=== PATIENT | female | born 1955 | race Caucasian/White ===

== ENCOUNTER → 2016-06-21 | Outpatient (CLI) | payer OTHER ==
[~2016-06-21] MED LIST: ACET-1138 PO; ASPEC81 PO; ATOR-22 PO; CLB200 PO; CLX20 PO; MISCCAP80 PO; MULT-506 PO; ONDA8TAB6 PO; RXC5 PO; SNK PO
[2016-06-21 13:22] LABS: BLOOD UREA NITROGEN 24 mg/dl (7-18); BUN/CREATININE RATIO 28.1 (10-20); CALCIUM 9.5 mg/dl (8.5-10.1); CARBON DIOXIDE 28 mmol/L (21-32); CHLORIDE 106 mmol/L (98-107); CREATININE 0.87 mg/dl (0.60-1.20); GLUCOSE 94 mg/dl (70-99); HDL CHOLESTEROL 55 mg/dl; POTASSIUM 4.4 mmol/L (3.5-5.1); SODIUM 142 mmol/L (136-145)
[2016-06-21 13:25] LABS: ALB/GLOB RATIO 1.2 (0.9-2); ALKALINE PHOSPHATASE 85 U/L (45-117); ALT/SGPT 26 U/L (12-78); AST/SGOT 17 U/L (15-37); CHOLESTEROL 182 mg/dl (0-200); CHOLESTEROL/HDL RATIO 3.3; LDL CHOLESTEROL CALCULATED 112 mg/dl; TRIGLYCERIDES 77 mg/dl (0-150); VERY LOW DENSITY LIPOPROT CALC 15 mg/dl
== END | disposition home or self-care (01) ==
LOC: C.LABPVFM 10:27
PROVIDERS: ATTEND Nurse Practitioner
DX: E78.5 Hyperlipidemia, unspecified (principal)

== ENCOUNTER → 2017-03-28 | Outpatient (CLI) | payer OTHER ==
[~2017-03-28] MED LIST changes: -ONDA8TAB6 PO
[2017-03-28 13:11] LABS: URINE EPITHELIAL CELL AUTO 0-5 /lpf (0-5); ZZInitiateTest Complete
[2017-03-28 13:22] LABS: MANUAL MICROSCOPIC REQUIRED? NO; REVIEW REQ? NO
== END | disposition home or self-care (01) ==
LOC: C.LABPVFM 11:39
PROVIDERS: ATTEND Nurse Practitioner Family
DX: R39.9 Unspecified symptoms and signs involving the genitourinary system (principal)

== ENCOUNTER → 2017-05-30 | Outpatient (CLI) | payer OTHER ==
[2017-05-30 14:07] LABS: BLOOD UREA NITROGEN 23 mg/dl (7-18); CALCIUM 9.5 mg/dl (8.5-10.1); CARBON DIOXIDE 26 mmol/L (21-32); CHOLESTEROL 124 mg/dl (0-200); CREATININE 0.82 mg/dl (0.60-1.20); GLUCOSE 96 mg/dl (70-99); POTASSIUM 4.4 mmol/L (3.5-5.1); SODIUM 139 mmol/L (136-145)
[2017-05-30 14:12] LABS: LDL CHOLESTEROL CALCULATED 72 mg/dl
== END | disposition home or self-care (01) ==
LOC: C.LABPVFM 08:27
PROVIDERS: ATTEND Family Medicine
DX: E78.5 Hyperlipidemia, unspecified (principal); F32.9 Major depressive disorder, single episode, unspecified

== ENCOUNTER → 2017-07-19 | Outpatient (CLI) | payer OTHER ==
--- NOTE | 2017-07-19 13:49 | DIAGNOSTIC IMAGING REPORT ---
R KNEE 1 OR 2 VIEWS ROUTINE HISTORY: 61 years-old Female KNEE PAIN, R acute right knee pain without known injury COMPARISON: None available TECHNIQUE: 2 views of the right knee FINDINGS: Bones appear mildly demineralized. Tricompartmental osteoarthritis appears moderate, most pronounced within the patellofemoral joint. Small knee joint effusion. No acute fracture or dislocation. IMPRESSION: Small joint effusion without acute fracture or dislocation. The above report was generated using voice recognition software. It may contain grammatical, syntax or spelling errors. Electronically signed by: Dave Rivera M.D. 07/19/2017 1:48 PM Dictated Date/Time: 07/19/2017 1:43 PM
== END | disposition home or self-care (01) ==
LOC: C.RADPV 13:33
PROVIDERS: ATTEND Family Medicine
DX: M25.561 Pain in right knee (principal)

== ENCOUNTER 2018-04-28 04:53 | Inpatient (IN) ==
--- NOTE | 2018-04-04 10:17 | PAT Medication Instructions ---
Medication Instructions Date of Service April 04, 2018 Home Medications atorvastatin 20 mg PO PM citalopram [Celexa] 10 mg PO QAM citalopram [Celexa] 20 mg PO HS ibuprofen 400 mg PO QID NEEDED multivitamin 1 tab PO HS cannabidiol (CBD) extract 1 drp PO PM ASK your prescriber and surgeon ibuprofen 400 mg PO QID NEEDED Take morning of surgery With a small sip of water, OTHERWISE NOTHING TO EAT OR DRINK AFTER MIDNIGHT: citalopram [Celexa] 10 mg PO QAM Take evening before surgery atorvastatin 20 mg PO PM citalopram [Celexa] 20 mg PO HS multivitamin 1 tab PO HS cannabidiol (CBD) extract 1 drp PO PM Other Notes If you have any questions please call us at [phone] or [phone] or [phone] or [phone]
--- NOTE | 2018-04-04 12:19 | Anesthesiology Consultation ---
Date of Service April 04, 2018 Assessment & Plan (1) Encounter for pre-operative examination: Chart Review Chart Review: Acceptable Risk for Surgery and Patient seen in Pre Admission Testing Consults Requested none Teaching & Discussion Pre-Anesthesia Teaching/Discussion Notes: Instructed NPO after midnight before surgery, except medications with 15 cc of water. Medication instructions provided according to the PAT guidelines. History Surgery Operation Date: 04/28/18 07:00 Proposed Procedures p Right Anterior Total Hip Replacement - Tom Calero DO Height/Weight Height: 5 ft 4 in Weight: 79.2 kg Allergies Allergy/AdvReac Type Severity Reaction Status Date / Time No Known Allergies Allergy Mild Verified 03/30/18 10:31 Medications Home Medications Medication Instructions Recorded Confirmed Last Taken atorvastatin 20 mg PO PM 03/30/18 03/30/18 Unknown citalopram [Celexa] 10 mg PO QAM 03/30/18 03/30/18 Unknown citalopram [Celexa] 20 mg PO HS 03/30/18 03/30/18 Unknown ibuprofen 400 mg PO QID PRN 03/30/18 03/30/18 Unknown multivitamin 1 tab PO HS 03/30/18 03/30/18 Unknown cannabidiol (CBD) extract 1 drp PO PM 04/04/18 04/04/18 Unknown Past Medical History Medical History Anxiety History of back pain Hyperlipidemia Osteoarthritis Past Family History Family History Father Family history of diabetes mellitus Family/Other Family history of diabetes mellitus Past Surgical History Surgical History History of cholecystectomy History of tonsillectomy History of total hip arthroplasty LEFT Past Anesthesia History No Hx of Anesthesia Complications and No Family Hx of Anesthesia Complications History of PONV No Motion Sickness Screening History of Motion Sickness: No Social History Smoking Status: Never smoker Do You Dip or Chew Tobacco: No Hx Alcohol Use: Yes Alcohol type: beer, wine and hard liquor alcohol intake frequency: a few times a week Hx Substance Use: No Exercise / Class Metabolic Activity II 4-5 Yardwork/Stairs/Walk up hill (Yoga 3x week, Pilates 2x week. Able to easily climb FOS. Denies CP or SOB. ) Review of Systems Patient denies chest pain, shortness of breath, dyspnea on exertion, reflux, cough, wheezing, palpitations. +joint pain Physical Exam Vital Signs BP: 105/74 P: 80 R: 16 T: 98.2 SPO2: 100% on RA ENMT Thyromental Distance: < 3.5 Finger Breadths (3) Mallampati Class: I Neck normal visual inspection and trachea midline; neck extension not limited Respiratory normal respiratory effort Auscultation: lungs clear to auscultation bilaterally Cardiovascular Rate/Rhythm: regular rate and regular rhythm Heart Sounds: no murmur Vessels: no carotid bruit Neurologic moves all extremities Psychiatric Orientation: alert and oriented x 3 Testing Electrocardiogram Date: 04/04/18 Findings: + NSR @ (70) When compared with ECG of 07/01/15, no significant change was found. Chest X-Ray Date: 04/04/18 Findings: + NAD Laboratory Results 04/04/18 12:38 04/04/18 12:38 Blood Type O Positive 04/04/18 12:38 Antibody Screen NEGATIVE 04/04/18 12:38 PT 10.3 Seconds (9.0-12.0) 04/04/18 12:38 INR 1.0 (0.9-1.1) 04/04/18 12:38 APTT 25.9 Seconds (21.0-31.0) 04/04/18 12:38
--- NOTE | 2018-04-04 13:16 | XRay Report ---
XR chest Pre-admission PA/Lat CLINICAL HISTORY: pat preoperative evaluation COMPARISON STUDY: 07/01/2015 FINDINGS: The bones soft tissues and hemidiaphragms are normal. The cardiomediastinal silhouette is n ormal. The lungs are clear. The pulmonary vasculature is normal. IMPRESSION: Negative chest. The above report was generated using voice recognition software. It may contain grammatical, syntax or spelling errors. Electronically signed by: Filemon Smith M.D. 04/04/2018 1:14 PM
[2018-04-04 13:28] LABS: Basophils # (auto) 0.02 K/uL (0-0.2); Basophils % (auto) 0.3 %; Eosinophils % (auto) 1.5 %; Hematocrit (blood only) 39.8 % (37-47); Hemoglobin 13.3 g/dL (12.0-16.0); Immature Granulocytes # (auto) 0.01 K/uL (0.00-0.02); Immature Granulocytes % (auto) 0.1 %; Lymphocytes # (auto) 1.87 K/uL (1.2-3.4); Lymphocytes % (auto) 27.3 %; Mean Corpuscular Hgb Conc 33.4 g/dL (32-36); Mean Platelet Volume 10.3 fL (7.4-10.4); Monocytes % (auto) 7.3 %; Neutrophils # (auto) 4.35 K/uL (1.4-6.5); Neutrophils % (auto) 63.5 %; Platelet Count 274 K/uL (130-400); RDW Coefficient of Variation 13.6 % (11.5-14.5); Red Blood Count 4.28 M/uL (4.2-5.4); White Blood Count 6.85 K/uL (4.8-10.8)
[2018-04-04 13:34] LABS: Partial Thromboplastin Time 25.9 Seconds (21.0-31.0); Prothrombin Time 10.3 Seconds (9.0-12.0)
[2018-04-04 13:37] LABS: BUN Creatinine Ratio 21.8 (10-20); Calcium 9.6 mg/dl (8.5-10.1); Creatinine Clr Calc Pharmacy 67.3 ml/min; Est GFR (African American) 82.7; Est GFR (Non-African American) 71.4; Potassium 4.4 mmol/L (3.5-5.1)
[2018-04-28] MEDS: LR 500ML BOLUS, THEN 15ML/HR IV SCH ×4 (05:38→10:57)
[2018-04-28] MEDS ORDERED: ACETAMINOPHEN 500 MG TAB PO SCH (06:00)
[2018-04-28] MEDS ORDERED: CEFAZOLIN 2000MG 2,000 MG/15 ML SYR IV SCH (06:00)
[2018-04-28] MEDS ORDERED: TRANEXAMIC ACID 1,000 MG **IV Pre-op IV SCH (06:00)
[2018-04-28] MEDS ORDERED: GABAPENTIN 300 MG x 2 PO SCH (06:00)
[2018-04-28] MEDS ORDERED: FAMOTIDINE 20 MG TAB PO SCH (06:00)
[2018-04-28] MEDS ORDERED: ROPIVACAINE 0.5% HCL/PF 150 MG, BUPIVACAINE 0.5% MPF 30 ML, EPINEPHrine 30MG/30ML (OR U... INFIL SCH (06:00)
[2018-04-28] MEDS ORDERED: LR 60ML/HR IV SCH (06:00)
[2018-04-28] MEDS ORDERED: BUPIVACAINE 0.5 % 5 MG/1 ML PF 10ML VIAL ONE (06:17)
[2018-04-28] MEDS ORDERED: TRANEXAMIC ACID 1,000 MG **IV Intra-op IV SCH (06:30)
[2018-04-28] MEDS ORDERED: POVIDONE-IODINE OP SOLN 30 ML BTL ONE (06:36)
[2018-04-28] MEDS ORDERED: ORTHO JOINT ANESTHETIC ONE (06:36)
[2018-04-28] MEDS ORDERED: BACITRACIN INJ 50,000 UNIT VIAL ONE (06:36)
--- NOTE | 2018-04-28 06:37 | History & Physical Report ---
Date of Service April 28, 2018 Assessment & Plan (1) Osteoarthritis of right hip: We will proceed with a right anterior total hip arthroplasty. Postoperatively she will be started on aspirin for DVT prophylaxis. She will be kept in the hospital for postoperative medical management. She plans to go home upon discharge and use her daughter who is a physical therapist for rehab. Present on Admission?: Yes History of Present Illness Chief Complaint: Primary osteoarthritis of the right hip Primary Care Provider: Marlon Briceño MD Patient is a pleasant 62-year-old female who had a left anterior total hip arthroplasty done [address] Lerma[address] Her left hip is doing fine. Unfortunately she has developed right hip and groin pain. X-rays and clinical examination have been diagnostic for primary osteoarthritis of the right hip. After failing conservative treatment she elected to proceed with a right total hip arthroplasty. Allergies Allergy/AdvReac Type Severity Reaction Status Date / Time No Known Allergies Allergy Mild Verified 04/28/18 05:32 Home Medications Home Medications Medication Instructions Recorded Confirmed Type atorvastatin 20 mg PO PM 03/30/18 04/28/18 History citalopram [Celexa] 10 mg PO QAM 03/30/18 04/28/18 History citalopram [Celexa] 20 mg PO HS 03/30/18 04/28/18 History ibuprofen 400 mg PO QID PRN 03/30/18 04/28/18 History multivitamin 1 tab PO HS 03/30/18 04/28/18 History cannabidiol (CBD) extract 1 drp PO PM 04/04/18 04/28/18 History acetaminophen [Tylenol] See Label Instructions .ROUTE 04/28/18 04/28/18 History .COMPLEX PRN Past Med/Surg History Medical History Anxiety History of back pain Hyperlipidemia Osteoarthritis Surgical History History of cholecystectomy History of tonsillectomy History of total hip arthroplasty LEFT Family History Father Family history of diabetes mellitus Family/Other Family history of diabetes mellitus Social History Current Living Situation: Spouse Other Information That Helps Us Care for You: No Feels Safe at Home: Yes Safety Concerns: Feels Safe At This Time Smoking Status: Never smoker Do You Dip or Chew Tobacco: No Hx Alcohol Use: Yes Alcohol type: beer, wine and hard liquor Alcohol Intake Frequency: a few times a week Hx Substance Use: No Beliefs That Will Affect Care: None Preferred Language: Latvian Communication Ability: Effective Research Investigator Required: No Review of Systems All systems reviewed & are unremarkable except as noted in HPI & below Physical Exam 2 Vital Signs (Past 24 Hours): Last Vital Signs Temp 36.7 C 04/28/18 05:39 Pulse 64 04/28/18 05:39 Resp 20 04/28/18 05:39 BP 134/77 04/28/18 05:39 Pulse Ox 98 04/28/18 05:39 Constitutional: WD/WN, vitals as above Eyes: PERRL, conjunctivae normal, anicteric sclerae ENMT: external ear and nose normal, oropharynx normal Neck: trachea midline, no thyromegaly Respiratory: normal respiratory effort Cardiovascular: RRR, no murmur, no edema Gastrointestinal (Abdomen): normal bowel sounds, soft, nontender, no hepatosplenomegaly Musculoskeletal: Physical examination of the right hip reveals decreased range of motion with flexion, internal and external rotation. There is significant groin pain with forced internal rotation of the hip his leg lengths are essentially equal. Psychiatric: A+Ox3, euthymic affect Results & Data Diagnostic Findings Radiographs of the right hip and pelvis demonstrate advanced osteoarthritis with joint space narrowing osteophyte formation and [id number] articulation. Medications Administered Acetaminophen (Tylenol) 1,000 mg PO PREOP SHI Stop: 04/28/18 18:00 Last Admin: 04/28/18 06:06 Dose: 1,000 mg Famotidine (Pepcid) 20 mg PO PREOP SHI Stop: 04/28/18 18:00 Last Admin: 04/28/18 06:06 Dose: 20 mg Gabapentin (Neurontin) 600 mg PO PREOP SHI Stop: 04/28/18 18:00 Last Admin: 04/28/18 06:06 Dose: 600 mg Lactated Ringer's (Lr) 1,000 mls @ 999 mls/hr IV .Q1H1M SHI Stop: 04/28/18 18:00 Last Admin: 04/28/18 05:38 Dose: 999 mls/hr
[2018-04-28] MEDS ORDERED: fentaNYL citrate 100 MCG/2 ML VIAL ONE (06:43)
[2018-04-28] MEDS ORDERED: MIDAZOLAM HCL 1 MG/ML 2ML VIAL ONE ×2 (06:44→06:48)
--- NOTE | 2018-04-28 06:49 | History & Physical Bridge Note ---
Date of Service April 28, 2018 History & Physical Bridge Note I have examined the patient, reviewed the History & Physical and in the interval since the performance of the History & Physical I have noted the following changes of clinical significance: no changes noted
[2018-04-28] MEDS ORDERED: ePHEDrine sulfate 50 MG/ML AMP IV PRN (07:16)
[2018-04-28] MEDS ORDERED: HYDROmorphone INJ 2 MG/ML SYR/VIAL IV PRN (07:16)
[2018-04-28] MEDS ORDERED: ATROPINE SULFATE 0.1 MG/ML 5ML SYR IV PRN (07:16)
[2018-04-28] MEDS ORDERED: PROPOFOL IV EMULSION 10 MG/ML 20 ML VIAL IV ONE ×2 (07:26→08:28)
[2018-04-28] MEDS ORDERED: LIDOCAINE HCL 2% 2 ML VIAL/AMP(20MG/ML) INFIL ONE (07:26)
[2018-04-28] MEDS ORDERED: ePHEDrine sulfate 50 MG/ML SYR ONE (07:58)
--- NOTE | 2018-04-28 08:29 | Operative Report ---
Post Operative Report Date of Surgery April 28, 2018 Pre & Post Diagnosis Operation Date: 04/28/18 07:00 Pre-Op Diagnosis: Primary Osteoarthritis Right Hip Post-Op Diagnosis: Primary Osteoarthritis Right Hip Procedure Operation Date: 04/28/18 07:00 Actual Procedures p Right Anterior Total Hip Replacement(Right) - Tom Calero DO Surgeon Tom Calero DO Opener Josh Viramontes PAC Estimated Blood Loss 200 Findings Consistent with Post-Op Diagnosis Specimens Right femoral head Complications none Disposition Disposition: Recovery Room Indications Kidney is a pleasant 62-year-old female who presented my office with chronic increasing right hip and groin pain. X-rays and clinical examination have been diagnostic for primary also arthritis of the right hip. After failing conservative treatment, she elected to proceed with a right total hip arthroplasty. Description of Procedure Implants used Biomet Taperloc total hip arthroplasty system with a size 10 standard offset Taperloc stem, a 52 mm G7 cup with a 25mm screw, an E1 polyethylene liner, a 36 mm ceramic head with a -6 neck. Patient arrived at the hospital for the above procedure. They were seen in the preoperative holding area and the operative extremity was identified and signed. They were given a spinal anesthetic. They were given a preoperative antibiotic and TXA. They were taken back To the operating room and laid on the table in the supine position. The leg was brought out through a Puristst leg positioner. The hip was then prepped and draped in sterile fashion. A timeout was done and the patient in upper extremities properly identified. An anterior approach was used. Dissection was taken down through the fascia and the tensor muscle belly was retracted laterally and the rectus was retracted medially. The circumflex vessels were identified and ligated. The capsule was then incised and tagged for later repair. The femoral neck was then cut and the femoral head was removed. The acetabulum was exposed. Time was spent doing a complete circumferential labral release. Sequential reaming of the acetabulum up to a size 51 reamer was done. Final reamings were done under fluoroscopy to ensure appropriate version. A Biomet 52 mm G7 cup was then impacted into place. A single 25 mm screw was placed. The E1 polyethylene liner was then snapped into place. Surrounding soft tissues were then injected with 100 cc of an orthopedic pain control cocktail. The proximal femur was then exposed. Sequential broaching up to a size 10 broach was done. Off that broach a size 36 head with a -6 neck was trialed. The hip was reduced and fluoroscopic images showed anatomic alignment of the implants in acceptable length. The broach was removed. The final size 10 standard offset Taperloc stem was then impacted into place. A ceramic 36 mm head with a -6 neck was then impacted into place in the hip was reduced. Final fluoroscopic images showed anatomic reduction of the hip. The capsule was then closed with #1 Vicryl suture. The wound was then irrigated Betadine solution that was left within the wound for 3 minutes. The Betadine was removed and the wound was irrigated. The fascia was closed with #1 PDS suture. Skin was closed with 2-0 Vicryl, lloyd, and a Mandy VAC dressing. The patient was then transferred to a hospital bed and taken to the post anesthesia care unit in stable condition. They tolerated the procedure well. I attest to the content of the Intraoperative Record and any orders documented therein. Any exceptions are noted below.
--- NOTE | 2018-04-28 09:21 | XRay Report ---
XR hip 1V RT w pelvis CLINICAL HISTORY: post-op RIGHT HIP ARTHROPLASTY COMPARISON: 12/30/2015 DISCUSSION: There is no change in the appearance of a total left hip arthroplasty. There is interval total right hip arthroplasty. There is no dislocation. No fractures are visualized. Overlying skin st aples are evident. IMPRESSION: Postsurgical changes of a total right hip arthroplasty. Electronically signed by: Anjel Almeida M.D. 04/28/2018 9:20 AM
[2018-04-28] MEDS ORDERED: METOCLOPRAMIDE HCL INJ 5 MG/ML 2 ML VIAL IV PRN (10:04)
[2018-04-28] MEDS ORDERED: ONDANSETRON INJ 2 MG/ML 2 ML VIAL IV PRN (10:04)
[2018-04-28] MEDS ORDERED: MAGNESIUM HYDROXIDE SUSP 30 ML UDC PO PRN (10:04)
[2018-04-28] MEDS ORDERED: MoRPHine SULFATE 2 MG/ML CARP IV PRN (10:04)
[2018-04-28] MEDS ORDERED: BISACODYL 10 MG SUPP PR PRN (10:04)
--- NOTE | 2018-04-28 10:33 | Fluoroscopy Report ---
FL hip RT 1V CLINICAL HISTORY: 62 years-old Female presenting with RIGHT ANTERIOR HIP. TECHNIQUE: 2 fluoroscopic image(s) recorded as part of an intraoperative procedure. COMPARISON: 01/24/2018. FINDINGS/IMPRESSION: There has been interval total right hip arthroplasty. An open wound is evident in the lateral soft ti ssues. No malalignment or gross evidence of a periprosthetic fracture. Please see surgical report for further details. Fluoroscopy dosage (mGy): 3.69. Fluoroscopy time: 27.6 seconds. Number or time of fluoroscopic spot images: 0. Electronically signed by: Jb Garnett M.D. 04/28/2018 10:31 AM
[2018-04-28] MEDS: CITALOPRAM 20 MG TAB PO SCH (10:57)
[2018-04-28] MEDS: SODIUM CHLORIDE 0.9% 1000ML 1,000 ML IV SCH ×2 (11:00→20:55)
[2018-04-28] MEDS: OXYCODONE HCL IR 5 MG TAB (IMMEDIATE RELEASE) PO PRN ×3 (11:47→23:49)
[2018-04-28] MEDS: DOCUSATE SODIUM 100 MG CAP PO SCH ×2 (11:49→20:57)
[2018-04-28] MEDS: ASPIRIN 81 MG ECTAB PO SCH ×2 (11:50→20:57)
[2018-04-28] MEDS: KETOROLAC 30 MG/ML VIAL IV SCH ×3 (11:50→21:57)
--- NOTE | 2018-04-28 13:27 | Anesthesiology Progress Note ---
Date of Service April 28, 2018 Anesthesia Post Procedure Vital Signs Vital Signs: Temp Pulse Pulse Resp BP Pulse Ox 04/28/18 12:34 77 16 114/74 100 04/28/18 10:59 85 17 117/60 90 04/28/18 10:30 68 17 145/86 H 99 04/28/18 10:00 36.4 C L 60 16 112/69 100 04/28/18 09:30 36.4 C L 59 L 16 110/60 100 04/28/18 09:15 36.8 C 64 16 103/65 98 04/28/18 09:05 63 16 106/64 98 04/28/18 08:57 36.2 C L 67 14 107/58 L 98 04/28/18 05:39 36.7 C 64 20 134/77 98 Notes Mental Status: alert / awake / arousable Patient Amnestic to Procedure: Yes Nausea / Vomiting: adequately controlled Pain: adequately controlled Airway Patency, RR, SpO2: stable & adequate BP & HR: stable & adequate Hydration State: stable & adequate Anesthetic Complications: no major complications apparent and Pt Satisfied with anesthetic care
[2018-04-28] MEDS: CEFAZOLIN 2000MG 2,000 MG/15 ML SYR IV SCH ×2 (13:43→21:57)
[2018-04-28] MEDS: ACETAMINOPHEN 500 MG TAB PO SCH ×2 (13:43→21:57)
[2018-04-28] MEDS ORDERED: CITALOPRAM 20 MG TAB PO SCH (21:00)
[2018-04-28] MEDS ORDERED: SENNA 8.6 MG TAB PO SCH (21:00)
[2018-04-28] MEDS ORDERED: ATORVASTATIN 20 MG TAB PO SCH (21:00)
[2018-04-28] MEDS ORDERED: MULTIVITAMIN TAB PO SCH (21:00)
[2018-04-29] MEDS: KETOROLAC 30 MG/ML VIAL IV SCH ×2 (03:33→10:04)
[2018-04-29 05:34] LABS: Basophils # (auto) 0.02 K/uL (0-0.2); Basophils % (auto) 0.2 %; Eosinophils # (auto) 0.16 K/uL (0-0.5); Eosinophils % (auto) 1.8 %; Hematocrit (blood only) 30.5 % (37-47); Immature Granulocytes # (auto) 0.02 K/uL (0.00-0.02); Immature Granulocytes % (auto) 0.2 %; Lymphocytes # (auto) 1.61 K/uL (1.2-3.4); Lymphocytes % (auto) 17.7 %; Mean Corpuscular Hgb Conc 32.8 g/dL (32-36); Mean Corpuscular Volume 94.1 fL (80-100); Mean Platelet Volume 9.6 fL (7.4-10.4); Monocytes # (auto) 0.83 K/uL (0.11-0.59); Monocytes % (auto) 9.1 %; Neutrophils # (auto) 6.48 K/uL (1.4-6.5); Platelet Count 185 K/uL (130-400); RDW Coefficient of Variation 14.1 % (11.5-14.5); RDW Standard Deviation 48.2 fL (36.4-46.3); Red Blood Count 3.24 M/uL (4.2-5.4); White Blood Count 9.12 K/uL (4.8-10.8)
[2018-04-29 05:52] LABS: Albumin Level 2.9 gm/dl (3.4-5.0); Calcium 8.2 mg/dl (8.5-10.1); Creatinine Clr Calc Pharmacy 78.7 ml/min; Est GFR (African American) 100.9; Phosphorus 4.1 mg/dl (2.5-4.9); Potassium 3.7 mmol/L (3.5-5.1)
[2018-04-29] MEDS: ACETAMINOPHEN 500 MG TAB PO SCH ×2 (06:01→13:30)
[2018-04-29] MEDS: OXYCODONE HCL IR 5 MG TAB (IMMEDIATE RELEASE) PO PRN ×2 (06:21→12:49)
--- NOTE | 2018-04-29 07:08 | Orthopedic Progress Note ---
Date of Service April 29, 2018 Assessment & Plan (1) Osteoarthritis of right hip: Overall she is doing fairly well. She is already been up and ambulating to the bathroom. She will be seen by physical therapy today for further ambulation. She is on aspirin for DVT prophylaxis. If she is feeling better this afternoon she can be discharged home otherwise we will keep her till tomorrow morning. Present on Admission?: Yes Subjective Patient was seen and examined at bedside this morning. Overall she is doing fairly well. She does not have much pain in her hip as long she is not moving it. She was up and laid into the bathroom last night without much difficulty. She has no new complaints. Physical Exam 2 Vital Signs (Past 24 Hours): Last Vital Signs Temp 37.0 C 04/29/18 06:54 Pulse 69 04/29/18 06:54 Resp 17 04/29/18 06:54 BP 92/52 L 04/29/18 06:54 Pulse Ox 96 04/29/18 06:54 Musculoskeletal: On physical examination of the right hip, the Mandy VAC dressing is to suction. Her leg lengths are equal. She is active dorsiflexion and plantarflexion of her right ankle. Sensation is intact throughout. Results & Data Laboratory Results H & H 04/04/18 04/29/18 Range/Units 12:38 05:11 Hgb 13.3 10.0 L (12.0-16.0) g/dL Hct 39.8 30.5 L (37-47) % Coagulation 04/04/18 Range/Units 12:38 INR 1.0 (0.9-1.1) Diagnostic Findings X-rays postoperatively of the right hip show the prosthesis to be in anatomic alignment without any evidence of fracture, dislocation, or loosening. The leg lengths appear equal.
[2018-04-29] MEDS: CITALOPRAM 20 MG TAB PO SCH (08:40)
[2018-04-29] MEDS: DOCUSATE SODIUM 100 MG CAP PO SCH (08:40)
[2018-04-29] MEDS: ASPIRIN 81 MG ECTAB PO SCH (08:41)
--- NOTE | 2018-04-30 09:10 | Discharge Summary ---
Date of Service April 30, 2018 Admission HPI Per Admitting Provider Patient is a pleasant 62-year-old female who had a left anterior total hip arthroplasty done [address] Lerma. Her left hip is doing fine. Unfortunately she has developed right hip and groin pain. X-rays and clinical examination have been diagnostic for primary osteoarthritis of the right hip. After failing conservative treatment she elected to proceed with a right total hip arthroplasty. Specialty Data Orthopedic H & H 04/04/18 04/29/18 Range/Units 12:38 05:11 Hgb 13.3 10.0 L (12.0-16.0) g/dL Hct 39.8 30.5 L (37-47) % Coagulation 04/04/18 Range/Units 12:38 INR 1.0 (0.9-1.1) Discharge Data Consultations 04/29/18 08:00 Consult Case Management - Discharge Planning Routine Procedures Performed Operation Date: 04/28/18 07:00 Actual Procedures p Right Anterior Total Hip Replacement(Right) - Tom Calero DO Hospital Course (1) Osteoarthritis of right hip: On April 28, [address] [facility] and underwent a right total hip arthroplasty without complication. She had a spinal anesthetic. Postoperatively she was started on aspirin for DVT prophylaxis and discharged to general orthopedic floors. Her hospital course is uneventful. On postop day #1 her H&H was stable and her pain was well controlled. She was able to ambulate well with physical therapy. She was discharged to home with home physical therapy. She will follow-up with orthopedics in 2 weeks. Discharge Instructions Home Medications Medication Instructions Recorded Confirmed atorvastatin 20 mg PO PM 03/30/18 04/28/18 citalopram [Celexa] 10 mg PO QAM 03/30/18 04/28/18 citalopram [Celexa] 20 mg PO HS 03/30/18 04/28/18 ibuprofen 400 mg PO QID PRN 03/30/18 04/28/18 multivitamin 1 tab PO HS 03/30/18 04/28/18 cannabidiol (CBD) extract 1 drp PO PM 04/04/18 04/28/18 acetaminophen [Tylenol] See Label Instructions .ROUTE 04/28/18 04/28/18 .COMPLEX PRN Previous Rx's Medication Instructions Recorded aspirin [Ecotrin Low Strength] 81 mg PO BID #84 tab 04/29/18 oxycodone 5 - 10 mg PO Q4H PRN #40 tab 04/29/18
== END 2018-04-29 13:59 | disposition home or self-care (01) | DRG 470 ==
LOC: ASU 04:53 → 3E 08:33

== ENCOUNTER 2020-06-02 05:50 | Inpatient (IN) ==
[2020-06-02 06:29] LABS: Basophils # (auto) 0.02 K/uL (0-0.2); Basophils % (auto) 0.2 %; Eosinophils # (auto) 0.17 K/uL (0-0.5); Eosinophils % (auto) 1.3 %; Hematocrit (blood only) 43.5 % (37-47); Immature Granulocytes # (auto) 0.01 K/uL (0.00-0.02); Immature Granulocytes % (auto) 0.1 %; Lymphocytes # (auto) 1.49 K/uL (1.2-3.4); Lymphocytes % (auto) 11.4 %; Mean Corpuscular Hemoglobin 32.3 pg (25-34); Mean Corpuscular Hgb Conc 34.5 g/dL (32-36); Mean Corpuscular Volume 93.8 fL (80-100); Mean Platelet Volume 9.2 fL (7.4-10.4); Neutrophils # (auto) 10.05 K/uL (1.4-6.5); Platelet Count 307 K/uL (130-400); RDW Coefficient of Variation 13.8 % (11.5-14.5); RDW Standard Deviation 47.7 fL (36.4-46.3); Red Blood Count 4.64 M/uL (4.2-5.4); White Blood Count 13.04 K/uL (4.8-10.8)
[2020-06-02 06:32] LABS: Appearance Urine Clear (Clear); Bacteria Urine Automated Negative (Negative); Blood Urine 1+ (Negative); Color Urine Dark Yellow; Glucose Urine UA Negative (Negative); Ketones Urine 1+ (Negative); Leukocyte Esterase Urine Negative (Negative); Nitrite Urine Negative (Negative); Protein Urine 1+ (Negative); Specific Gravity Urine 1.028 (1.000-1.030); Urobilinogen Urine Negative (Negative)
[2020-06-02 06:34] LABS: Bilirubin Urine 1+ (Negative)
[2020-06-02 06:48] LABS: Albumin Level 3.9 gm/dl (3.4-5.0); BUN Creatinine Ratio 15.5 (10-20); Calcium 9.6 mg/dl (8.5-10.1); Creatinine Clr Calc Pharmacy 64.1 ml/min; Est GFR (African American) 77.2; Est GFR (Non-African American) 66.6; Potassium 3.5 mmol/L (3.5-5.1)
[2020-06-02 06:51] LABS: Albumin Globulin Ratio 1.1 (0.9-2); Bilirubin,Total 0.8 mg/dl (0.2-1); Globulin 3.7 gm/dl (2.5-4.0); Total Protein 7.6 gm/dl (6.4-8.2)
[2020-06-02] MEDS ORDERED: SODIUM CHLORIDE 0.9% 1000ML 1,000 ML IV SCH (07:07)
[2020-06-02] MEDS ORDERED: ONDANSETRON INJ 2 MG/ML 2 ML VIAL IV STA ×2 (07:12→10:45)
[2020-06-02] MEDS ORDERED: MoRPHine SULFATE 2 MG/ML CARP IV STA ×2 (07:37→10:07)
[2020-06-02 07:43] LABS: Amylase 98 U/L (25-115); Troponin I < 0.015 ng/ml (0-0.045)
[2020-06-02] MEDS ORDERED: IOVERSOL 100ml IV ONE (08:07)
--- NOTE | 2020-06-02 08:09 | Emergency Department Note ---
Impression & Plan Acute inflammation of the pancreas, Epigastric abdominal pain ED Provider Note NAME: CARLOS CONDON AGE: 64 SEX: F ARRIVES VIA: Walk-In INFORMANT: Patient ED PROVIDER(S): Caro Fontanez MD CHIEF COMPLAINT: Upper abdominal pain PLAN: Disposition: Inpatient Condition: Fair Referral: Hospitalist MEDICAL DECISION MAKING: This pt was evaluated and appeared to be in no distress. IV access was obtained and lab work was drawn. Pt was hydrated with NSS, given IV zofran and morphine for pain. Lab work revealed a mild leukocytosis, normal LFTS and lipase. UA was likely contaminated. CT imaging was significant for inflammatory change around the pancreas. Without h/o chronic pancreatitis and no lipase abnl, this was felt to be unusual. Pt was given IV protonix as this maybe PUD by CT. Case was d/w the hospitalist service for further management. Triage Nursing notes reviewed. Additional history obtained from resident Casey Torres MD Prior medical records reviewed Vital Signs: reviewed and remarkable for HTN Differential diagnosis: Appendicitis, infections, diverticulitis, UTI, obstruction, mesenteric ischemia, aortic pathology, inflammatory bowel disease, renal colic, PUD, pancreatitis, biliary pathology, hernia, volvulus, constipation, as well as other pathologies. ER treatment provided: IV morphine IV zofran IV NSS Diagnostics interpreted by me: ECG: NSR 85 bpm, nonspecific ST abnl, normal axis, no PVC, no PAC, normal QTC 440 Laboratory studies: See below Imaging studies: CT SCAN OF THE ABDOMEN AND PELVIS WITH IV CONTRAST CLINICAL HISTORY: Generalized abdominal pain. Nausea. COMPARISON STUDY: Abdominal ultrasound dated 07/01/2015. TECHNIQUE: Following the IV administration of 94 cc of Optiray 320, CT scan of the abdomen and pelvis is performed from the lung bases to the proximal femora. Images are reviewed in the axial, sagittal, and coronal planes. IV contrast was administered without complication. A dose lowering technique was utilized adhe ring to the principles of ALARA. CT DOSE: 725.06 mGy.cm FINDINGS: Lung bases: The heart is normal in size and without pericardial effusion. A calcified granuloma seen at the left lung base. The lung bases are otherwise clear noting dependent atelectasis. There is a small hiatal hernia. Liver: The contrast-enhanced liver is mildly enlarged measuring 18.5 cm in length. The liver is otherwise normal in contour and attenuation. There is minimal central intrahepatic biliary ductal dilatation. The hepatic veins and portal veins are patent. Gallbladder: Surgically absent noting clips in the gallbladder fossa. Spleen: Normal in size and attenuation. A 6 mm calcified splenic artery aneurysm is seen on image #90. Pancreas: There is moderate glandular atrophy of the pancreas. The gland enhance s homogeneously and the duct is normal in caliber. There is mild inflammatory change seen between the pancreatic head and the distal stomach/proximal duodenum. There is mild mucosal hyperemia of the distal stomach and proximal duodenum. The splenic vein is patent. No organized peripancreatic fluid c ollection is identified. Adrenal glands: Unremarkable. Kidneys: The contrast enhanced kidneys are normal in size and without hydronephrosis. The kidneys enhance symmetrically. A circumaortic left renal vein is incidentally noted. Abdominal vasculature: The abdominal aorta is normal in course and caliber noting moderate atherosclerotic calcification. Bowel: There is no bowel obstruction. As noted above, there is mild wall thickening with mucosal hyperemia involving the distal stomach and proximal duodenum. The appendix is not identified. Peritoneum: There is no intraperitoneal free air or abdominal ascites. Lymphadenopathy: None. Pelvic viscera: Evaluation of the pelvis is significantly degraded by streak artifact from bilateral hip arthroplasties. The bladder is normal as visualized. Uterus and adnexa are not well evaluated. Skeletal structures: The skeletal structures are osteopenic. No lytic or blastic lesions are seen. Bilateral hip arthroplasties are in place. IMPRESSION: 1. There is inflammatory change seen between the pancreatic head and the distal stomach/proximal duodenum. Mild wall thickening is noted within the distal stomach/proximal duodenum with associated mucosal hyperemia. Differential considerations include acute pancreatitis, ulcer disease, or possibly a distal gastritis/duodenitis. Correlation with clinical findings and laboratory studies will be essential. Endoscopy could be considered for further assessment if clinically warranted. 2. The pancreas enhances homogeneously. There is no organized fluid collection in the upper abdomen or intraperitoneal free air. 3. Additional findings as above. ACT 112: Negative or not required by law. Electronically signed by: Alvaro Kapoor M.D. 06/02/2020 8:24 AM Dictated: 06/02/20812Transcribed: 06/02/20812 Consultation(s): hospitalist HPI: 64/F arrives for evaluation of epigastric abd pain. Pt states pain does radiate through to her back. She has been vomiting. She denies CP or SOB. No blood in stool or emesis. Pt denies fever, chills, cough. She has no known exposure to COVID. Pt had a cholecystectomy many years ago but still has an appendix. ROS: See above HPI for pertinent positives & negatives. A total of 10 systems reviewed and were otherwise negative. PAST MEDICAL HISTORY:See Below PAST SURGICAL HISTORY:See Below FAMILY HISTORY:See Below SOCIAL HISTORY:See Below HOME MEDICATIONS:See Below ALLERGIES:See Below VITALS:See Below PHYSICAL EXAMINATION: Vital signs reviewed. General: Well-appearing 64 yo female, in no significant distress. HEENT: No scleral icterus, PERRLA, neck supple. Atraumatic. Cardiovascular: Regular rate and rhythm, no extra sounds. Pulmonary: Clear to auscultation bilaterally, normal work of breathing. Abdomen: Soft, tender to epigastric area also mild RLQ tenderness, nondistended, positive bowel sounds. Musculoskeletal: Atraumatic, no peripheral edema. Neurologic: Patient awake alert and oriented x 3 Skin: Warm, dry, no rash Caro Fontanez MD Past Med/Surg History Medical History (Updated 06/03/20 @ 17:29 by Caro Fontanez MD) Anxiety Hyperlipidemia Osteoarthritis Surgical History History of bilateral tubal ligation History of cholecystectomy History of colonoscopy History of esophagogastroduodenoscopy (EGD) History of tonsillectomy and adenoidectomy History of tooth extraction History of total replacement of both hip joints History of wisdom tooth extraction Family History Father , age 44 of [place] Diabetes Cardiac disorder Family/Other No problems noted. Mother , age in 70s of an [place] Diabetes Cardiac disorder Hypertension Other No family history of adverse response to anesthesia Social History Smoking Status: Never smoker Second Hand Exposure: Yes (parents smoked); Hx Alcohol Use: Yes Alcohol type: beer and wine Alcohol Intake Frequency: 2-4 x/Month Hx Substance Use: No Preferred Language: Syrian Communication Ability: Effective Shrimp Cleaner Required: No Beliefs That Will Affect Care: None marital status: Current Living Situation: Spouse Other Information That Helps Us Care for You: No Feels Safe at Home: Yes Safety Concerns: Feels Safe At This Time Seatbelt Use: always Assistive Devices: Glasses Allergies Allergies Allergy/AdvReac Type Severity Reaction Status Date / Time No Known Allergies Allergy Mild Verified 06/02/20 06:12 Home Meds Home Medications Medication Instructions Recorded Confirmed multivitamin 1 tab PO HS 03/30/18 06/02/20 amoxicillin 2,000 mg PO UD PRN 12/19/19 06/02/20 citalopram 20 mg PO HS 12/19/19 06/02/20 Previous Rx's Medication Instructions Recorded citalopram 10 mg tablet 10 mg PO QAM #90 tab 10/17/19 amoxicillin 500 mg tablet 2,000 mg PO ONCE #4 tab 02/25/20 atorvastatin 20 mg tablet 20 mg PO HS #90 tab 02/25/20 acetaminophen 650 mg PO Q8H PRN #100 tab 06/04/20 [id number] 1 tab PO Q8H PRN #30 tab 06/04/20 pantoprazole 40 mg PO BID #60 tab 06/04/20 Results & Data (ED) Vital Signs Vital Signs - 24 hr 06/02/20 05:53 06/02/20 07:00 Temperature 36.4 C L Temperature Source Temporal Artery Scan Pulse Rate 98 H Pulse Rate [Apical] 86 Pulse Rhythm Regular Pulse Strength Normal Respiratory Rate 20 18 Respiratory Effort / Characteristics Non-Labored Spontaneous Respiratory Depth Normal Respiratory Pattern Regular Blood Pressure 146/87 H Blood Pressure [Left Arm] 144/92 H Blood Pressure Mean 106 Blood Pressure Mean [Left Arm] 109 Blood Pressure Position Sitting Pulse Oximetry 97 97 Oxygen Delivery Method Room Air Room Air Sepsis Recent Fever Within 48 Hours No Sepsis New/Unexplained Change in Mental Status N/A Sepsis Action Taken by Nursing No Action Required Home Medications Current Medication List: was personally reviewed by me Laboratory Data Attestation: I reviewed the patient's lab results. Result diagrams: 06/04/20 06:32 06/04/20 06:32 Lab Results 06/02/20 06/02/20 06/02/20 Range/Units 06:17 06:17 06:17 WBC 13.04 H (4.8-10.8) K/uL RBC 4.64 (4.2-5.4) M/uL Hgb 15.0 (12.0-16.0) g/dL Hct 43.5 (37-47) % MCV 93.8 (80-100) fL MCH 32.3 (25-34) pg MCHC 34.5 (32-36) g/dL RDW Std Deviation 47.7 H (36.4-46.3) fL RDW Coeff of Myesha 13.8 (11.5-14.5) % Plt Count 307 (130-400) K/uL MPV 9.2 (7.4-10.4) fL Immature Gran % (Auto) 0.1 % Neut % (Auto) 77.0 % Lymph % (Auto) 11.4 % [place] % (Auto) 10.0 % Eos % (Auto) 1.3 % Baso % (Auto) 0.2 % Neut # (Auto) 10.05 H (1.4-6.5) K/uL Lymph # (Auto) 1.49 (1.2-3.4) K/uL [place] # (Auto) 1.30 H (0.11-0.59) K/uL Eos # (Auto) 0.17 (0-0.5) K/uL Baso # (Auto) 0.02 (0-0.2) K/uL Immature Gran # (Auto) 0.01 (0.00-0.02) K/uL Sodium 134 L (136-145) mmol/L Potassium 3.5 (3.5-5.1) mmol/L Chloride 99 (98-107) mmol/L Carbon Dioxide 29 (21-32) mmol/L Anion Gap 6.0 (3-11) BUN 14 (7-18) mg/dl Creatinine 0.90 (0.6-1.2) mg/dl Est Cr Clr Drug Dosing 64.1 ml/min Est GFR ( Amer) 77.2 Est GFR (Non-Af Amer) 66.6 BUN/Creatinine Ratio 15.5 (10-20) Glucose 118 H (70-99) mg/dl Calcium 9.6 (8.5-10.1) mg/dl Total Bilirubin 0.8 (0.2-1) mg/dl AST 17 (15-37) U/L ALT 26 (12-78) U/L Alkaline Phosphatase 92 (45-117) U/L Troponin I (0-0.045) ng/ml Total Protein 7.6 (6.4-8.2) gm/dl Albumin 3.9 (3.4-5.0) gm/dl Globulin 3.7 (2.5-4.0) gm/dl Albumin/Globulin Ratio 1.1 (0.9-2) Amylase (25-115) U/L Lipase 261 (73-393) U/L Urine Color Dark Yellow Urine Appearance Clear (Clear) Urine pH 7.0 (4.5-7.5) Ur Specific [place] 1.028 (1.000-1.030) Urine Protein 1+ H (Negative) Urine Glucose (UA) Negative (Negative) Urine Ketones 1+ H (Negative) Urine Blood 1+ H (Negative) Urine Nitrite Negative (Negative) Urine Bilirubin 1+ H (Negative) Urine Urobilinogen Negative (Negative) Ur Leukocyte Esterase Negative (Negative) Urine WBC (Auto) 1-5 (0-5) /hpf Urine RBC (Auto) 5-10 H (0-4) /hpf U Hyaline Cast (Auto) 1-5 (0-5) /lpf U Epithel Cells (Auto) 10-20 H (0-5) /lpf Urine Bacteria (Auto) Negative (Negative) COVID-19 Eval Order SARS-CoV-2, RNA, NAAT (NEGATIVE) 06/02/20 06/02/20 06/02/20 Range/Units 06:17 10:40 10:40 WBC (4.8-10.8) K/uL RBC (4.2-5.4) M/uL Hgb (12.0-16.0) g/dL Hct (37-47) % MCV (80-100) fL MCH (25-34) pg MCHC (32-36) g/dL RDW Std Deviation (36.4-46.3) fL RDW Coeff of Myesha (11.5-14.5) % Plt Count (130-400) K/uL MPV (7.4-10.4) fL Immature Gran % (Auto) % Neut % (Auto) % Lymph % (Auto) % [place] % (Auto) % Eos % (Auto) % Baso % (Auto) % Neut # (Auto) (1.4-6.5) K/uL Lymph # (Auto) (1.2-3.4) K/uL [place] # (Auto) (0.11-0.59) K/uL Eos # (Auto) (0-0.5) K/uL Baso # (Auto) (0-0.2) K/uL Immature Gran # (Auto) (0.00-0.02) K/uL Sodium (136-145) mmol/L Potassium (3.5-5.1) mmol/L Chloride (98-107) mmol/L Carbon Dioxide (21-32) mmol/L Anion Gap (3-11) BUN (7-18) mg/dl Creatinine (0.6-1.2) mg/dl Est Cr Clr Drug Dosing ml/min Est GFR ( Amer) Est GFR (Non-Af Amer) BUN/Creatinine Ratio (10-20) Glucose (70-99) mg/dl Calcium (8.5-10.1) mg/dl Total Bilirubin (0.2-1) mg/dl AST (15-37) U/L ALT (12-78) U/L Alkaline Phosphatase (45-117) U/L Troponin I < 0.015 (0-0.045) ng/ml Total Protein (6.4-8.2) gm/dl Albumin (3.4-5.0) gm/dl Globulin (2.5-4.0) gm/dl Albumin/Globulin Ratio (0.9-2) Amylase 98 (25-115) U/L Lipase (73-393) U/L Urine Color Urine Appearance (Clear) Urine pH (4.5-7.5) Ur Specific [place] (1.000-1.030) Urine Protein (Negative) Urine Glucose (UA) (Negative) Urine Ketones (Negative) Urine Blood (Negative) Urine Nitrite (Negative) Urine Bilirubin (Negative) Urine Urobilinogen (Negative) Ur Leukocyte Esterase (Negative) Urine WBC (Auto) (0-5) /hpf Urine RBC (Auto) (0-4) /hpf U Hyaline Cast (Auto) (0-5) /lpf U Epithel Cells (Auto) (0-5) /lpf Urine Bacteria (Auto) (Negative) COVID-19 [facility] SARS-CoV-2, RNA, NAAT NEGATIVE (NEGATIVE) Administered Medications Acetaminophen (Acetaminophen 325 Mg Tab) 650 mg PO Q8H PRN PRN Reason: Headache or Pain Stop: 07/03/20 10:53 Last Admin: 06/04/20 05:43 Dose: 650 mg Documented by: [id number] Admin: 06/03/20 19:37 Dose: 650 mg Documented by: [id number] Atorvastatin Calcium (Atorvastatin 20 Mg Tab) 20 mg PO HS [facility] Stop: 07/03/20 20:59 Last Admin: 06/03/20 21:07 Dose: 20 mg Documented by: [id number] Citalopram Hydrobromide (Citalopram 20 Mg Tab) [facility] [place] Stop: 07/03/20 08:59 Last Admin: 06/04/20 08:39 Dose: 10 mg Documented by: [id number] Admin: 06/03/20 08:30 Dose: Not Given Documented by: [id number] Citalopram Hydrobromide (Citalopram 20 Mg Tab) 20 mg PO HS [facility] Stop: 07/02/20 20:59 Last Admin: 06/03/20 21:07 Dose: 20 mg Documented by: [id number] Admin: 06/02/20 21:06 Dose: Not Given Documented by: [id number] Hydromorphone HCl (Hydromorphone Inj 0.5 Mg/0.5 Ml Syr) 0.5 mg IV Q4H PRN PRN Reason: Pain Stop: 06/16/20 13:43 Last Admin: 06/03/20 06:11 Dose: 0.5 mg Documented by: [id number] Admin: 06/02/20 21:05 Dose: 0.5 mg Documented by: [id number] Admin: 06/02/20 14:40 Dose: 0.5 mg Documented by: [id number] Melatonin (Melatonin 3 Mg Tab) 3 mg PO HS PRN PRN Reason: Sleep Stop: 07/03/20 19:56 Last Admin: 06/03/20 21:07 Dose: 3 mg Documented by: [id number] Metoclopramide HCl (Metoclopramide Hcl Inj 5 Mg/Ml 2 Ml Vial) 5 mg IV BID [facility] Stop: 07/03/20 20:59 Last Admin: 06/04/20 08:39 Dose: 5 mg Documented by: [id number] Admin: 06/03/20 21:08 Dose: 5 mg Documented by: [id number] Ondansetron HCl (Ondansetron Inj 2 Mg/Ml 2 Ml Vial) 4 mg IV Q6H PRN PRN Reason: Nausea Stop: 07/02/20 13:44 Last Admin: 06/04/20 01:44 Dose: 4 mg Documented by: [id number] Admin: 06/03/20 09:06 Dose: 4 mg Documented by: [id number] Admin: 06/02/20 21:05 Dose: 4 mg Documented by: [id number] Pantoprazole Sodium (Pantoprazole 40 Mg Tab) 40 mg PO BID [facility]I Stop: 07/03/20 20:59 Last Admin: 06/04/20 08:39 Dose: 40 mg Documented by: [id number] Admin: 06/03/20 21:07 Dose: 40 mg Documented by: [id number] Discontinued Medications Acetaminophen (Acetaminophen 325 Mg Tab) 650 mg PO ONE ONE Stop: 06/02/20 19:12 Last Admin: 06/02/20 19:23 Dose: 650 mg Documented by: [id number] Dexamethasone (Dexamethasone Sod Inj 4 Mg/Ml Vial) Confirm Administered Dose 4 mg .ROUTE .STK-MED ONE Stop: 06/03/20 09:31 Last Admin: 06/03/20 15:53 Dose: Not Given Documented by: [id number] Gadobutrol (Gadobutrol 65ml Vial) 8.5 ml IV ONCE ONE Stop: 06/03/20 13:11 Last Admin: 06/03/20 13:11 Dose: 8.5 ml Documented by: [id number] Sodium Chloride (Nss 1000ml) 1,000 mls @ 999 mls/hr IV .Q1H1M SHI Stop: 06/02/20 08:07 Last Infusion: 06/02/20 08:33 Dose: 0 mls/hr Documented by: [id number] Admin: 06/02/20 07:31 Dose: 999 mls/hr Documented by: [id number] Sodium Chloride (Nss) 500 mls @ 150 mls/hr IV .Q3H20M SHI Stop: 06/02/20 16:24 Last Admin: 06/02/20 13:39 Dose: Not Given Documented by: [id number] Infusion: 06/02/20 13:38 Dose: 0 mls/hr Documented by: [id number] Admin: 06/02/20 10:42 Dose: 150 mls/hr Documented by: [id number] Pantoprazole Sodium 40 mg/ (Syringe) 10 mls @ 5 mls/min IV NOW ONE Stop: 06/02/20 10:06 Last Admin: 06/02/20 10:42 Dose: 5 mls/min Documented by: [id number] Lactated Ringer's (Lr) 1,000 mls @ 80 mls/hr IV .[id number] SHI Stop: 07/02/20 13:29 Last Infusion: 06/04/20 09:44 Dose: 0 mls/hr Documented by: [id number] Admin: 06/04/20 01:44 Dose: 80 mls/hr Documented by: [id number] Infusion: 06/04/20 01:35 Dose: 80 mls/hr Documented by: [id number] Admin: 06/03/20 13:05 Dose: 80 mls/hr Documented by: [id number] Infusion: 06/03/20 13:05 Dose: 0 mls/hr Documented by: [id number] Infusion: 06/03/20 08:15 Dose: 0 mls/hr Documented by: [id number] Admin: 06/03/20 03:14 Dose: 150 mls/hr Documented by: [id number] Infusion: 06/03/20 03:14 Dose: 150 mls/hr Documented by: [id number] Admin: 06/02/20 21:05 Dose: 150 mls/hr Documented by: [id number] Infusion: 06/02/20 21:05 Dose: 150 mls/hr Documented by: [id number] Admin: 06/02/20 14:41 Dose: 150 mls/hr Documented by: [id number] Pantoprazole Sodium 40 mg/ (Syringe) 10 mls @ 5 mls/min IV BID SHI Stop: 07/02/20 20:59 Last Admin: 06/03/20 09:06 Dose: 5 mls/min Documented by: [id number] Admin: 06/02/20 21:06 Dose: 5 mls/min Documented by: [id number] Ioversol (Ioversol 100ml) 94 ml IV ONCE ONE Stop: 06/02/20 08:08 Last Admin: 06/02/20 08:07 Dose: 94 ml Documented by: [id number] Lidocaine HCl (Lidocaine Hcl 2% 2 Ml Vial/Amp(20mg/Ml)) Confirm Administered Dose 4 ml INFIL .STK-MED ONE Stop: 06/03/20 09:09 Last Admin: 06/03/20 15:53 Dose: Not Given Documented by: [id number] Morphine Sulfate (Morphine Sulfate 2 Mg/Ml Carp) 2 mg IV NOW STA Stop: 06/02/20 07:38 Last Admin: 06/02/20 08:01 Dose: 2 mg Documented by: [id number] Morphine Sulfate (Morphine Sulfate 2 Mg/Ml Carp) 2 mg IV NOW STA Stop: 06/02/20 10:08 Last Admin: 06/02/20 10:42 Dose: 2 mg Documented by: [id number] Ondansetron HCl (Ondansetron Inj 2 Mg/Ml 2 Ml Vial) 4 mg IV NOW STA Stop: 06/02/20 07:13 Last Admin: 06/02/20 07:31 Dose: 4 mg Documented by: [id number] Ondansetron HCl (Ondansetron Inj 2 Mg/Ml 2 Ml Vial) 4 mg IV NOW STA Stop: 06/02/20 10:46 Last Admin: 06/02/20 12:20 Dose: 4 mg Documented by: [id number] Propofol (Propofol Iv Emulsion 10 Mg/Ml 20 Ml Vial) Confirm Administered Dose 200 mg IV .STK-MED ONE Stop: 06/03/20 09:09 Last Admin: 06/03/20 15:53 Dose: Not Given Documented by: [id number] Propofol (Propofol Iv Emulsion 10 Mg/Ml 20 Ml Vial) Confirm Administered Dose 200 mg IV .STK-MED ONE Stop: 06/03/20 09:50 Last Admin: 06/03/20 15:54 Dose: Not Given Documented by: [id number] Discharge Plan Visit Data Chief Complaint: Abdominal Pain Stated Complaint: SEVERE ABDOMINAL PAIN ED Provider: Caro Fontanez ED Midlevel Provider: Casey Torres Discharge Problem: Acute inflammation of the pancreas, Epigastric abdominal pain Patient Disposition: Admitted As Inpatient Condition: Good Discharge Instructions Interventions: ED Discharge Assessment Last Done: 06/02/20 12:40 Discharge Problem: Acute inflammation of the pancreas Qualifiers: Pancreatitis type: unspecified pancreatitis type Acute pancreatitis complication: unspecified Qualified Code(s): K85.90 - Acute pancreatitis without necrosis or infection, unspecified
--- NOTE | 2020-06-02 08:25 | CT Scan Report ---
CT SCAN OF THE ABDOMEN AND PELVIS WITH IV CONTRAST CLINICAL HISTORY: Generalized abdominal pain. Nausea. COMPARISON STUDY: Abdominal ultrasound dated 07/01/2015. TECHNIQUE: Following the IV administration of 94 cc of Optiray 320, CT scan of the abdomen and pelvi s is performed from the lung bases to the proximal femora. Images are reviewed in the axial, sagittal , and coronal planes. IV contrast was administered without complication. A dose lowering technique wa s utilized adhering to the principles of ALARA. CT DOSE: 725.06 mGy.cm FINDINGS: Lung bases: The heart is normal in size and without pericardial effusion. A calcified granuloma seen at the left lung base. The lung bases are otherwise clear noting dependent atelectasis. There is a sm all hiatal hernia. Liver: The contrast-enhanced liver is mildly enlarged measuring 18.5 cm in length. The liver is other [place] normal in contour and attenuation. There is minimal central intrahepatic biliary ductal dilatati on. The hepatic veins and portal veins are patent. Gallbladder: Surgically absent noting clips in the gallbladder fossa. Spleen: Normal in size and attenuation. A 6 mm calcified splenic artery aneurysm is seen on image #90 . Pancreas: There is moderate glandular atrophy of the pancreas. The gland enhances homogeneously and t he duct is normal in caliber. There is mild inflammatory change seen between the pancreatic head and the distal stomach/proximal duodenum. There is mild mucosal hyperemia of the distal stomach and proxi mal duodenum. The splenic vein is patent. No organized peripancreatic fluid collection is identified. Adrenal glands: Unremarkable. Kidneys: The contrast enhanced kidneys are normal in size and without hydronephrosis. The kidneys enh ance symmetrically. A circumaortic left renal vein is incidentally noted. Abdominal vasculature: The abdominal aorta is normal in course and caliber noting moderate atheroscle rotic calcification. Bowel: There is no bowel obstruction. As noted above, there is mild wall thickening with mucosal hype remia involving the distal stomach and proximal duodenum. The appendix is not identified. Peritoneum: There is no intraperitoneal free air or abdominal ascites. Lymphadenopathy: None. Pelvic viscera: Evaluation of the pelvis is significantly degraded by streak artifact from bilateral hip arthroplasties. The bladder is normal as visualized. Uterus and adnexa are not well evaluated. Skeletal structures: The skeletal structures are osteopenic. No lytic or blastic lesions are seen. Bi lateral hip arthroplasties are in place. IMPRESSION: 1. There is inflammatory change seen between the pancreatic head and the distal stomach/proximal duod enum. Mild wall thickening is noted within the distal stomach/proximal duodenum with associated mucos al hyperemia. Differential considerations include acute pancreatitis, ulcer disease, or possibly a di stal gastritis/duodenitis. Correlation with clinical findings and laboratory studies will be essentia l. Endoscopy could be considered for further assessment if clinically warranted. 2. The pancreas enhances homogeneously. There is no organized fluid collection in the upper abdomen o r intraperitoneal free air. 3. Additional findings as above. ACT 112: Negative or not required by law. Electronically signed by: Alvaro Kapoor M.D. 06/02/2020 8:24 AM
[2020-06-02] MEDS ORDERED: PANTOprazole 40 MG in SYRINGE 0 ML IV ONE (10:05)
[2020-06-02] MEDS: SODIUM CHLORIDE 0.9% 500 ML IV SCH ×2 (10:42→13:39)
--- NOTE | 2020-06-02 12:41 | Gastrointestinal Consultation ---
Date of Consultation June 02, 2020 Assessment & Plan (1) Epigastric pain: 64 year old female admitted through the ED w/ upper abd pain, nausea/vomiting food aversion, onset Tuesday, leukocytosis but afebrile w/ stable vitals. lipase and LFTs unremarkable. CTAP w/ inflammatory change between the pancreatic head and the stomach/duodenum w/ wall thickening in distal stomach/proximal duodenum with associated mucosal hyperemia. DDX discussed: gastritis, duodenitis, PUD, pancreatitis vs other NPO for bowel rest IV fluid maintenance Analgesia PRN Antiemetics PRN No NSAIDs IV PPI BID Tentative plan for EGD in the AM Pending results, consider OP EUS Thank you for allowing us to participate in the care of this patient. Please call with any acute changes, questions or concerns. Please see addendum below with additional recommendation from my supervising physician. Attg add: I interviewed and examined pt, reviewed chart and labs. Pt with abrupt onset epigastric pain rad to back Tuesday, assoc with n/v. + NSAID use. EGD to r/u PUD. If neg, will need w/u for pancreatic and biliary disease. History of Present Illness Reason for Consultation: abd pain Requesting Physician: Annel Attending Physician: Annel History of Present Illness 64 year old female with history of HTN, dyslipidemia, anxiety/depression, s/p ccy years ago who presents with upper abdominal pain, onset Tuesday. Pain is epgiastrc in location and radiates to her back. Pain is constant, severe. Worse with any attempted PO intake. Reports extreme nausea w/ vomiting with PO. No associated GERD. No change in bowel habits. Denies any black/bloody BM or emesis. No weight loss. No fever, chills, CP, SOB. No new meds No increased ETOH, will use 1 glass of wine with dinner 5x a week Uses NSAIDs, advil 2 tabs 2/3 days a week CTAP 2020: There is inflammatory change seen between the pancreatic head and the distal stomach/proximal duodenum. Mild wall thickening is noted within the distal stomach/proximal duodenum with associated mucosal hyperemia. Differential considerations include acute pancreatitis, ulcer disease, or possibly a distal gastritis/duodenitis. Correlation with clinical findings and laboratory studies will be essential. Endoscopy could be considered for further assessment if clinically warranted. The pancreas enhances homogeneously. There is no organized fluid collection in the upper abdomen or intraperitoneal free air. EGD: none Colonoscopy 2020: Two 3 to 5 mm polyps in the transverse colon and in the ascending colon, removed with a cold snare. Resected and retrieved. - Non-bleeding internal hemorrhoids Allergies Allergy/AdvReac Type Severity Reaction Status Date / Time No Known Allergies Allergy Mild Verified 06/02/20 06:12 Home Medications Medication Instructions Recorded Confirmed Type multivitamin 1 tab PO HS 03/30/18 06/02/20 History citalopram 10 mg tablet 10 mg PO QAM #90 tab 10/17/19 06/02/20 Rx amoxicillin 2,000 mg PO UD PRN 12/19/19 06/02/20 History citalopram 20 mg PO HS 12/19/19 06/02/20 History amoxicillin 500 mg tablet 2,000 mg PO ONCE #4 tab 02/25/20 06/02/20 Rx atorvastatin 20 mg tablet 20 mg PO HS #90 tab 02/25/20 06/02/20 Rx Patient History Medical History (Updated 06/02/20 @ 14:05 by Maritza Up PA-C) Anxiety Hyperlipidemia Osteoarthritis Surgical History History of bilateral tubal ligation History of cholecystectomy History of colonoscopy History of esophagogastroduodenoscopy (EGD) History of tonsillectomy and adenoidectomy History of tooth extraction History of total replacement of both hip joints History of wisdom tooth extraction Family History (Updated 06/02/20 @ 13:36 by Maritza Up PA-C) Father , age 44 of [place] Diabetes Cardiac disorder Family/Other No problems noted. Mother , age in 70s of an [place] Diabetes Cardiac disorder Hypertension Other No family history of adverse response to anesthesia Social History (Updated 06/02/20 @ 13:37 by Maritza Up PA-C) Smoking Status: Never smoker Second Hand Exposure: Yes (parents smoked); Hx Alcohol Use: Yes Alcohol type: beer and wine Alcohol Intake Frequency: 2-4 x/Month Hx Substance Use: No Preferred Language: Yakut Communication Ability: Effective Slot Router Required: No Beliefs That Will Affect Care: None marital status: Current Living Situation: Spouse Other Information That Helps Us Care for You: No Feels Safe at Home: Yes Safety Concerns: Feels Safe At This Time Seatbelt Use: always Assistive Devices: Glasses Review of Systems Constitutional: no fever, no chills and no fatigue Respiratory: no cough and no dyspnea Cardiovascular: no chest pain and no dyspnea Gastrointestinal: + abdominal pain, + nausea and + vomiting; no bloating, no early satiety, no heartburn, no coffee ground emesis, no hematemesis, no dysphagia, no diarrhea/loose stools, no blood in stools and no melena Physical Exam Constitutional: well developed and well nourished; no acute distress Neck: trachea midline Respiratory: normal respiratory effort Cardiovascular: Rate/Rhythm: regular rate and regular rhythm Gastrointestinal (Abdomen): Percussion/Palpation: + abdomen tender and abdomen soft; no guarding and abdomen not rigid Skin: no rashes, warm and dry Results & Data ([facility]) Vital Signs (Past 12 Hours) Vital Signs Temp Pulse Pulse Resp BP BP Pulse Ox 06/02/20 11:57 84 18 146/91 H 99 06/02/20 09:00 76 18 150/85 H 97 06/02/20 07:00 86 18 144/92 H 97 06/02/20 05:53 36.4 C L 98 H 20 146/87 H 97 Laboratory Results 06/02/20 06/02/20 06/02/20 Range/Units 10:40 10:40 06:17 WBC (4.8-10.8) K/uL RBC (4.2-5.4) M/uL Hgb (12.0-16.0) g/dL Hct (37-47) % MCV (80-100) fL MCH (25-34) pg MCHC (32-36) g/dL RDW Std Deviation (36.4-46.3) fL RDW Coeff of Myesha (11.5-14.5) % Plt Count (130-400) K/uL MPV (7.4-10.4) fL Immature Gran % (Auto) % Neut % (Auto) % Lymph % (Auto) % [place] % (Auto) % Eos % (Auto) % Baso % (Auto) % Neut # (Auto) (1.4-6.5) K/uL Lymph # (Auto) (1.2-3.4) K/uL [place] # (Auto) (0.11-0.59) K/uL Eos # (Auto) (0-0.5) K/uL Baso # (Auto) (0-0.2) K/uL Immature Gran # (Auto) (0.00-0.02) K/uL Sodium (136-145) mmol/L Potassium (3.5-5.1) mmol/L Chloride (98-107) mmol/L Carbon Dioxide (21-32) mmol/L Anion Gap (3-11) BUN (7-18) mg/dl Creatinine (0.6-1.2) mg/dl Est Cr Clr Drug Dosing ml/min Est GFR ( Amer) Est GFR (Non-Af Amer) BUN/Creatinine Ratio (10-20) Glucose (70-99) mg/dl Calcium (8.5-10.1) mg/dl Total Bilirubin (0.2-1) mg/dl AST (15-37) U/L ALT (12-78) U/L Alkaline Phosphatase (45-117) U/L Troponin I < 0.015 (0-0.045) ng/ml Total Protein (6.4-8.2) gm/dl Albumin (3.4-5.0) gm/dl Globulin (2.5-4.0) gm/dl Albumin/Globulin Ratio (0.9-2) Amylase 98 (25-115) U/L Lipase (73-393) U/L Urine Color Urine Appearance (Clear) Urine pH (4.5-7.5) Ur Specific [place] (1.000-1.030) Urine Protein (Negative) Urine Glucose (UA) (Negative) Urine Ketones (Negative) Urine Blood (Negative) Urine Nitrite (Negative) Urine Bilirubin (Negative) Urine Urobilinogen (Negative) Ur Leukocyte Esterase (Negative) Urine WBC (Auto) (0-5) /hpf Urine RBC (Auto) (0-4) /hpf U Hyaline Cast (Auto) (0-5) /lpf U Epithel Cells (Auto) (0-5) /lpf Urine Bacteria (Auto) (Negative) COVID-19 Eval Order Covid19 IDNow [facility] SARS-CoV-2, RNA, NAAT NEGATIVE (NEGATIVE) 06/02/20 06/02/20 06/02/20 Range/Units 06:17 06:17 06:17 WBC 13.04 H (4.8-10.8) K/uL RBC 4.64 (4.2-5.4) M/uL Hgb 15.0 (12.0-16.0) g/dL Hct 43.5 (37-47) % MCV 93.8 (80-100) fL MCH 32.3 (25-34) pg MCHC 34.5 (32-36) g/dL RDW Std Deviation 47.7 H (36.4-46.3) fL RDW Coeff of Myesha 13.8 (11.5-14.5) % Plt Count 307 (130-400) K/uL MPV 9.2 (7.4-10.4) fL Immature Gran % (Auto) 0.1 % Neut % (Auto) 77.0 % Lymph % (Auto) 11.4 % [place] % (Auto) 10.0 % Eos % (Auto) 1.3 % Baso % (Auto) 0.2 % Neut # (Auto) 10.05 H (1.4-6.5) K/uL Lymph # (Auto) 1.49 (1.2-3.4) K/uL [place] # (Auto) 1.30 H (0.11-0.59) K/uL Eos # (Auto) 0.17 (0-0.5) K/uL Baso # (Auto) 0.02 (0-0.2) K/uL Immature Gran # (Auto) 0.01 (0.00-0.02) K/uL Sodium 134 L (136-145) mmol/L Potassium 3.5 (3.5-5.1) mmol/L Chloride 99 (98-107) mmol/L Carbon Dioxide 29 (21-32) mmol/L Anion Gap 6.0 (3-11) BUN 14 (7-18) mg/dl Creatinine 0.90 (0.6-1.2) mg/dl Est Cr Clr Drug Dosing 64.1 ml/min Est GFR ( Amer) 77.2 Est GFR (Non-Af Amer) 66.6 BUN/Creatinine Ratio 15.5 (10-20) Glucose 118 H (70-99) mg/dl Calcium 9.6 (8.5-10.1) mg/dl Total Bilirubin 0.8 (0.2-1) mg/dl AST 17 (15-37) U/L ALT 26 (12-78) U/L Alkaline Phosphatase 92 (45-117) U/L Troponin I (0-0.045) ng/ml Total Protein 7.6 (6.4-8.2) gm/dl Albumin 3.9 (3.4-5.0) gm/dl Globulin 3.7 (2.5-4.0) gm/dl Albumin/Globulin Ratio 1.1 (0.9-2) Amylase (25-115) U/L Lipase 261 (73-393) U/L Urine Color Dark Yellow Urine Appearance Clear (Clear) Urine pH 7.0 (4.5-7.5) Ur Specific [place] 1.028 (1.000-1.030) Urine Protein 1+ H (Negative) Urine Glucose (UA) Negative (Negative) Urine Ketones 1+ H (Negative) Urine Blood 1+ H (Negative) Urine Nitrite Negative (Negative) Urine Bilirubin 1+ H (Negative) Urine Urobilinogen Negative (Negative) Ur Leukocyte Esterase Negative (Negative) Urine WBC (Auto) 1-5 (0-5) /hpf Urine RBC (Auto) 5-10 H (0-4) /hpf U Hyaline Cast (Auto) 1-5 (0-5) /lpf U Epithel Cells (Auto) 10-20 H (0-5) /lpf Urine Bacteria (Auto) Negative (Negative) COVID-19 Eval Order SARS-CoV-2, RNA, NAAT (NEGATIVE)
--- NOTE | 2020-06-02 13:22 | History & Physical Report ---
Date of Service June 02, 2020 Assessment & Plan (1) Epigastric pain: LFTs and lipase WNL, CT Abd/Pel with inflammation between pancreatic head and distal stomach/proximal duodenum. Differential includes pancreatitis, duodenitis, duodenal ulcer, pancreatic mass. - NPO for now - IVF with LR at 150 cc/hr - IV PPI therapy - Labs in AM - Pain control and antiemetics - Consult GI for additional recommendations and potential endoscopy - Due to strong family hx of cardiac disease and abnormal EKG, will monitor on telemetry, trend troponin, repeat EKG in AM and check ECHO. If anything abnormal, consider cardiology consult (2) Anxiety: - Continue Celexa as taken outpatient (3) Hyperlipidemia: On statin as an outpatient - holding while pt NPO Pt seen and reviewed with attending physician. Plan of care discussed and as outlined above. Grecia Up PA-C History of Present Illness Chief Complaint: Abdominal pain x 2 days Primary Care Provider: Jared Collado DO This is a 64 y/o female with a PMH of dyslipidemia and anxiety who presents to the ED with worsening epigastric pain over the past two days. Pt reports eating a salad for lunch on Tuesday after which, about an hour later, she developed epigastric to RUQ pain that has been gradually worsening since then. She describes the pain as "gnawing" with radiation both through and around to her back and RUQ. She reports similar pain when she had her gallbladder taken out but not as severe as current episode. Pain is constant but in a crescendo- decrescendo pattern. Started with nausea last night but has noted bilious vomiting the past two nights. No hematemesis. Denies heartburn, indigestion, melena, hematochezia, dysphagia, constipation. She did have some diarrhea about a week ago but this has resolved. Noted chills last night but no documented fevers. No recent unexplained weight loss. No prior history of peptic ulcer disease. She does take ibuprofen for headaches or "aches and pains" about 3x/week. She has tried Tylenol for her current symptoms without relief. Has not eaten solid foods since Tuesday. Only had small amounts of liquids yesterday. She does note that her stomach has been intermittently unsettled, typically after eating, for the past month. On Tuesday morning, before lunch, something felt "off" but otherwise had been feeling okay prior to current episode. Morphine in the ED took the edge off her pain. Nausea worse when pain severe. Of note, pt received the first dose of the COVID vaccine two weeks ago. Allergies Allergy/AdvReac Type Severity Reaction Status Date / Time No Known Allergies Allergy Mild Verified 06/02/20 06:12 Home Medications Medication Instructions Recorded Confirmed Type multivitamin 1 tab PO HS 03/30/18 06/02/20 History citalopram 10 mg tablet 10 mg PO QAM #90 tab 10/17/19 06/02/20 Rx amoxicillin 2,000 mg PO UD PRN 12/19/19 06/02/20 History citalopram 20 mg PO HS 12/19/19 06/02/20 History amoxicillin 500 mg tablet 2,000 mg PO ONCE #4 tab 02/25/20 06/02/20 Rx atorvastatin 20 mg tablet 20 mg PO HS #90 tab 02/25/20 06/02/20 Rx Past Med/Surg History Medical History (Updated 06/02/20 @ 14:05 by Maritza Up PA-C) Anxiety Hyperlipidemia Osteoarthritis Surgical History History of bilateral tubal ligation History of cholecystectomy History of colonoscopy History of esophagogastroduodenoscopy (EGD) History of tonsillectomy and adenoidectomy History of tooth extraction History of total replacement of both hip joints History of wisdom tooth extraction Family History (Updated 06/02/20 @ 13:36 by Maritza Up PA-C) Father , age 44 of [place] Diabetes Cardiac disorder Family/Other No problems noted. Mother , age in 70s of an [place] Diabetes Cardiac disorder Hypertension Other No family history of adverse response to anesthesia Social History (Updated 06/02/20 @ 13:37 by Maritza Up PA-C) Smoking Status: Never smoker Second Hand Exposure: Yes (parents smoked); Hx Alcohol Use: Yes Alcohol type: beer and wine Alcohol Intake Frequency: 2-4 x/Month Hx Substance Use: No Preferred Language: Israeli Communication Ability: Effective Spring Up Supervisor Required: No Beliefs That Will Affect Care: None marital status: Current Living Situation: Spouse Other Information That Helps Us Care for You: No Feels Safe at Home: Yes Safety Concerns: Feels Safe At This Time Seatbelt Use: always Assistive Devices: Glasses Review of Systems Review of Systems: All systems reviewed & are unremarkable except as noted in HPI & below Constitutional: + chills, + fatigue and + anorexia; no fever, no sweats and no weight loss Eyes: no diplopia and no worsening vision Ear, Nose, Mouth, Throat: no nasal congestion, no sore throat and no dysphagia Respiratory: no cough, no dyspnea, no hemoptysis and no wheezing Cardiovascular: no chest pain with activity, no dyspnea on exertion, no palpitations, no syncope and no edema Gastrointestinal: as per Subjective / HPI; no coffee ground emesis and no blood in stools Genitourinary: no dysuria, no urinary frequency, no nocturia and no hematuria Musculoskeletal: no back pain, no neck pain and no myalgia Integumentary: no rash Neurologic: + headache(s); no falls, no localized weakness and no dizziness Psychiatric: + anxiety; no depression Physical Exam Constitutional: WD/WN, vitals as above no acute distress Eyes: PERRL, conjunctivae normal, anicteric sclerae Neck: trachea midline Respiratory: no respiratory distress and no labored breathing Auscultation: lungs clear to auscultation bilaterally; no rales, no rhonchi and no wheezes Cardiovascular: Rate/Rhythm: regular rate and regular rhythm Heart Sounds: no gallop, no murmur and no cardiac rub Vessels: dorsalis pedis pulses present and radial pulses present; no carotid bruit Gastrointestinal (Abdomen): Inspection/Auscultation: normal bowel sounds; abdomen not distended Percussion/Palpation: + abdomen tender (mild to moderate tenderness in epigastric/RUQ areas) and abdomen soft; no guarding Musculoskeletal: Head/Neck/Chest: normocephalic, head atraumatic and neck supple Extremities: no cyanosis and no clubbing Skin: no rashes, warm and dry no jaundice Neurologic: moves all extremities; no focal motor deficits Psychiatric: A+Ox3, euthymic affect Results & Data Results & Data ([facility]) Vital Signs (Past 12 Hours) Vital Signs Temp Pulse Pulse Resp BP BP Pulse Ox 06/02/20 11:57 84 18 146/91 H 99 06/02/20 09:00 76 18 150/85 H 97 06/02/20 07:00 86 18 144/92 H 97 06/02/20 05:53 36.4 C L 98 H 20 146/87 H 97 Laboratory Results Laboratory Results - last 24 hr 06/02/20 06/02/20 06/02/20 06:17 06:17 06:17 WBC 13.04 H RBC 4.64 Hgb 15.0 Hct 43.5 MCV 93.8 MCH 32.3 MCHC 34.5 RDW Std Deviation 47.7 H RDW Coeff of Myesha 13.8 Plt Count 307 MPV 9.2 Immature Gran % (Auto) 0.1 Neut % (Auto) 77.0 Lymph % (Auto) 11.4 [place] % (Auto) 10.0 Eos % (Auto) 1.3 Baso % (Auto) 0.2 Neut # (Auto) 10.05 H Lymph # (Auto) 1.49 [place] # (Auto) 1.30 H Eos # (Auto) 0.17 Baso # (Auto) 0.02 Immature Gran # (Auto) 0.01 Sodium 134 L Potassium 3.5 Chloride 99 Carbon Dioxide 29 Anion Gap 6.0 BUN 14 Creatinine 0.90 Est Cr Clr Drug Dosing 64.1 Est GFR ( Amer) 77.2 Est GFR (Non-Af Amer) 66.6 BUN/Creatinine Ratio 15.5 Glucose 118 H Calcium 9.6 Total Bilirubin 0.8 AST 17 ALT 26 Alkaline Phosphatase 92 Troponin I Total Protein 7.6 Albumin 3.9 Globulin 3.7 Albumin/Globulin Ratio 1.1 Amylase Lipase 261 Urine Color Dark Yellow Urine Appearance Clear Urine pH 7.0 Ur Specific [place] 1.028 Urine Protein 1+ H Urine Glucose (UA) Negative Urine Ketones 1+ H Urine Blood 1+ H Urine Nitrite Negative Urine Bilirubin 1+ H Urine Urobilinogen Negative Ur Leukocyte Esterase Negative Urine WBC (Auto) 1-5 Urine RBC (Auto) 5-10 H U Hyaline Cast (Auto) 1-5 U Epithel Cells (Auto) 10-20 H Urine Bacteria (Auto) Negative COVID-19 Eval Order SARS-CoV-2, RNA, NAAT 06/02/20 06/02/20 06/02/20 06:17 10:40 10:40 WBC RBC Hgb Hct MCV MCH MCHC RDW Std Deviation RDW Coeff of Myesha Plt Count MPV Immature Gran % (Auto) Neut % (Auto) Lymph % (Auto) [place] % (Auto) Eos % (Auto) Baso % (Auto) Neut # (Auto) Lymph # (Auto) [place] # (Auto) Eos # (Auto) Baso # (Auto) Immature Gran # (Auto) Sodium Potassium Chloride Carbon Dioxide Anion Gap BUN Creatinine Est Cr Clr Drug Dosing Est GFR ( Amer) Est GFR (Non-Af Amer) BUN/Creatinine Ratio Glucose Calcium Total Bilirubin AST ALT Alkaline Phosphatase Troponin I < 0.015 Total Protein Albumin Globulin Albumin/Globulin Ratio Amylase 98 Lipase Urine Color Urine Appearance Urine pH Ur Specific [place] Urine Protein Urine Glucose (UA) Urine Ketones Urine Blood Urine Nitrite Urine Bilirubin Urine Urobilinogen Ur Leukocyte Esterase Urine WBC (Auto) Urine RBC (Auto) U Hyaline Cast (Auto) U Epithel Cells (Auto) Urine Bacteria (Auto) COVID[facility], RNA, NAAT NEGATIVE Diagnostic Findings CT Abd/Pel - IMPRESSION: 1. There is inflammatory change seen between the pancreatic head and the distal stomach/proximal duodenum. Mild wall thickening is noted within the distal stomach/proximal duodenum with associated mucosal hyperemia. Differential considerations include acute pancreatitis, ulcer disease, or possibly a distal gastritis/duodenitis. Correlation with clinical findings and laboratory studies will be essential. Endoscopy could be considered for further assessment if clinically warranted. 2. The pancreas enhances homogeneously. There is no organized fluid collection in the upper abdomen or intraperitoneal free air. 3. Additional findings as above. Medications Administered Discontinued Medications Sodium Chloride (Nss 1000ml) 1,000 mls @ 999 mls/hr IV .Q1H1M [facility] Stop: 06/02/20 08:07 Last Infusion: 06/02/20 08:33 Dose: 0 mls/hr Documented by: [id number] Admin: 06/02/20 07:31 Dose: 999 mls/hr Documented by: [id number] Sodium Chloride (Nss) 500 mls @ 150 mls/hr IV .Q3H20M [facility] Stop: 06/02/20 16:24 Last Admin: 06/02/20 13:39 Dose: Not Given Documented by: [id number] Infusion: 06/02/20 13:38 Dose: 0 mls/hr Documented by: [id number] Admin: 06/02/20 10:42 Dose: 150 mls/hr Documented by: [id number] Pantoprazole Sodium 40 mg/ (Syringe) 10 mls @ 5 mls/min IV NOW ONE Stop: 06/02/20 10:06 Last Admin: 06/02/20 10:42 Dose: 5 mls/min Documented by: [id number] Ioversol (Ioversol 100ml) 94 ml IV ONCE ONE Stop: 06/02/20 08:08 Last Admin: 06/02/20 08:07 Dose: 94 ml Documented by: [id number] Morphine Sulfate (Morphine Sulfate 2 Mg/Ml Carp) 2 mg IV NOW STA Stop: 06/02/20 07:38 Last Admin: 06/02/20 08:01 Dose: 2 mg Documented by: [id number] Morphine Sulfate (Morphine Sulfate 2 Mg/Ml Carp) 2 mg IV NOW STA Stop: 06/02/20 10:08 Last Admin: 06/02/20 10:42 Dose: 2 mg Documented by: [id number] Ondansetron HCl (Ondansetron Inj 2 Mg/Ml 2 Ml Vial) 4 mg IV NOW STA Stop: 06/02/20 07:13 Last Admin: 06/02/20 07:31 Dose: 4 mg Documented by: [id number] Ondansetron HCl (Ondansetron Inj 2 Mg/Ml 2 Ml Vial) 4 mg IV NOW STA Stop: 06/02/20 10:46 Last Admin: 06/02/20 12:20 Dose: 4 mg Documented by: [id number] Code Status & VTE Plan VTE Prophylaxis Plan VTE Prophylaxis will be ordered: Yes Supervising Physician Co-Signing Physician Notes Patient is a 64-year-old female with history of anxiety, dyslipidemia, hypertension and other medical problems presents with history of worsening epigastric pain associated with nausea and vomiting since 2 days duration. Reports that the epigastric pain radiates to her back and as a result has been had poor oral intake. Denies any blood in stools. Please review HPI for complete details of presentation. CT abdomen showed inflammatory changes between the pancreatic head and distal stomach/proximal duodenum. Also showed mild wall thickening within the distal stomach/proximal duodenum associated with mucosal hyperemia. No fluid collection or free air noted in the upper abdomen or intraperitoneal. Lipase within normal limits. Patient denies any recent NSAIDs use. On exam patient is moderately built and nourished, no apparent distress, normocephalic atraumatic, lungs are clear to auscultation, decreased breath sounds, S1-S2, no murmur, no pedal edema, abdomen soft, tender predominantly epigastric, right upper quadrant no guarding or rigidity, normal bowel sounds, alert, awake, oriented, grossly no focal neurological deficits. Patient is admitted for management of epigastric/right upper quadrant abdominal pain. DD: Peptic ulcer disease, gastritis, duodenitis, pancreatitis etc. Agree with IV fluids, bowel rest, IV Protonix. Patient plan for EGD in the morning. Appreciate GI input. Avoid NSAIDs. Also noted abnormal EKG with nonspecific ST abnormality. Patient denies any chest pain. No recent EKG for comparison. Echo showed no wall motion abnormality. Troponins negative. I personally reviewed the record. Patient is interviewed and examined at bedside. Patient's care is coordinated with Maritza Up PA-C . Please refer to the documentation above for details of patient's presentation and for discussion of other issues. (1) Hyperlipidemia Hyperlipidemia type: unspecified Qualified Code(s): E78.5 - Hyperlipidemia, unspecified
--- NOTE | 2020-06-02 13:26 | Electrocardiogram Report ---
Test Reason : Blood Pressure : / mmHG Vent. Rate : 085 BPM Atrial Rate : 085 BPM P-R Int : 150 ms QRS Dur : 084 ms QT Int : 370 ms P-R-T Axes : 052 045 070 degrees QTc Int : 440 ms Normal sinus rhythm Possible Left atrial enlargement Nonspecific ST abnormality Abnormal ECG When compared with ECG of 04-APR-2018 12:35, No significant change was found Confirmed by Cedric Silvestre ([id number]) on 06/02/2020 1:26:16 PM Referred By: REFERRED SELF Confirmed By:Cedric Silvestre
--- NOTE | 2020-06-02 14:11 | XCELERA ---
[id number] \\[id number]
[2020-06-02] MEDS: HYDROmorphone INJ 0.5 MG/0.5 ML SYR IV PRN ×2 (14:40→21:05)
[2020-06-02] MEDS: LACTATED RINGER'S 1,000 ML IV SCH ×2 (14:41→21:05)
[2020-06-02] MEDS ORDERED: ACETAMINOPHEN 325 MG TAB PO ONE (19:11)
[2020-06-02] MEDS ORDERED: BENZONATATE 100 MG CAPSULE PO SCH (21:00)
[2020-06-02] MEDS: ONDANSETRON INJ 2 MG/ML 2 ML VIAL IV PRN (21:05)
[2020-06-02] MEDS: CITALOPRAM 20 MG TAB PO SCH (21:06)
[2020-06-02] MEDS: PANTOprazole 40 MG in SYRINGE 0 ML IV SCH (21:06)
[2020-06-03] MEDS: LACTATED RINGER'S 1,000 ML IV SCH ×2 (03:14→13:05)
[2020-06-03] MEDS: HYDROmorphone INJ 0.5 MG/0.5 ML SYR IV PRN (06:11)
[2020-06-03 07:01] LABS: Albumin Level 2.7 gm/dl (3.4-5.0); BUN Creatinine Ratio 12.1 (10-20); Bilirubin Direct 0.2 mg/dl (0-0.2); Bilirubin,Total 0.7 mg/dl (0.2-1); Calcium 9.3 mg/dl (8.5-10.1); Creatinine Clr Calc Pharmacy 86.2 ml/min; Est GFR (African American) 106.2; Est GFR (Non-African American) 91.6; Potassium 4.1 mmol/L (3.5-5.1); Total Protein 5.9 gm/dl (6.4-8.2)
[2020-06-03 08:21] LABS: Basophils # (auto) 0.01 K/uL (0-0.2); Basophils % (auto) 0.1 %; Eosinophils % (auto) 3.4 %; Hematocrit (blood only) 35.8 % (37-47); Immature Granulocytes # (auto) 0.02 K/uL (0.00-0.02); Immature Granulocytes % (auto) 0.2 %; Lymphocytes # (auto) 1.61 K/uL (1.2-3.4); Lymphocytes % (auto) 18.3 %; Mean Corpuscular Hemoglobin 31.8 pg (25-34); Mean Corpuscular Hgb Conc 33.5 g/dL (32-36); Mean Platelet Volume 9.3 fL (7.4-10.4); Monocytes # (auto) 0.99 K/uL (0.11-0.59); Monocytes % (auto) 11.3 %; Neutrophils # (auto) 5.85 K/uL (1.4-6.5); Neutrophils % (auto) 66.7 %; Platelet Count 249 K/uL (130-400); RDW Coefficient of Variation 13.9 % (11.5-14.5); Red Blood Count 3.77 M/uL (4.2-5.4); White Blood Count 8.78 K/uL (4.8-10.8)
[2020-06-03] MEDS: CITALOPRAM 20 MG TAB PO SCH ×2 (08:30→21:07)
--- NOTE | 2020-06-03 08:39 | Gastroenterology Progress Note ---
Date of Service June 03, 2020 Assessment & Plan (1) Epigastric pain: 64 year old female admitted through the ED w/ upper abd pain, nausea/vomiting food aversion, onset Tuesday, leukocytosis but afebrile w/ stable vitals. lipase and LFTs unremarkable. CTAP w/ inflammatory change between the pancreatic head and the stomach/duodenum w/ wall thickening in distal stomach/proximal duodenum with associated mucosal hyperemia. DDX discussed: gastritis, duodenitis, PUD, pancreatitis vs other NPO for EGD IV fluid maintenance Analgesia PRN Antiemetics PRN No NSAIDs IV PPI BID Pending results of EGD consider OP EUS Thank you for allowing us to participate in the care of this patient. Please call with any acute changes, questions or concerns. Please see addendum below with additional recommendation from my supervising physician. Admission and Anticipated Discharge Date Admission Date: June 02, 2020 Supervising Physician Co-Signing Physician Notes Attg add: I interviewed and examined pt, reviewed chart and labs. No changes to history or PE as mentioned above. Plan for EGD today. Subjective feeling better this am less abd pain no nausea,vomiting but still no appetite does have a bad BERMEO this AM Review of Systems Constitutional: + anorexia; no fever, no chills and no fatigue Respiratory: no cough and no dyspnea Cardiovascular: no chest pain and no dyspnea Gastrointestinal: + abdominal pain; no nausea, no hematemesis, no cramping, no diarrhea/loose stools and no blood in stools Physical Exam Constitutional: well nourished; no acute distress Neck: trachea midline Respiratory: normal respiratory effort Cardiovascular: Rate/Rhythm: regular rate Gastrointestinal (Abdomen): Inspection/Auscultation: abdomen normal to inspection Percussion/Palpation: abdomen soft; abdomen nontender Skin: no rashes, warm and dry Results & Data ([facility]) Vital Signs (Past 12 Hours) Vital Signs Temp Pulse Pulse Resp BP Pulse Ox 06/03/20 07:53 80 06/03/20 07:14 36.9 C 78 18 112/69 92 06/03/20 02:39 37.1 C 72 15 113/70 92 06/03/20 01:39 81 06/02/20 23:23 37.1 C 75 15 109/68 93 Laboratory Results 06/03/20 06/03/20 06/02/20 Range/Units 06:01 06:01 18:19 WBC 8.78 (4.8-10.8) K/uL RBC 3.77 L (4.2-5.4) M/uL Hgb 12.0 D (12.0-16.0) g/dL Hct 35.8 L (37-47) % MCV 95.0 (80-100) fL MCH 31.8 (25-34) pg MCHC 33.5 (32-36) g/dL RDW Std Deviation 48.0 H (36.4-46.3) fL RDW Coeff of Myesha 13.9 (11.5-14.5) % Plt Count 249 (130-400) K/uL MPV 9.3 (7.4-10.4) fL Immature Gran % (Auto) 0.2 % Neut % (Auto) 66.7 % Lymph % (Auto) 18.3 % [place] % (Auto) 11.3 % Eos % (Auto) 3.4 % Baso % (Auto) 0.1 % Neut # (Auto) 5.85 (1.4-6.5) K/uL Lymph # (Auto) 1.61 (1.2-3.4) K/uL [place] # (Auto) 0.99 H (0.11-0.59) K/uL Eos # (Auto) 0.30 (0-0.5) K/uL Baso # (Auto) 0.01 (0-0.2) K/uL Immature Gran # (Auto) 0.02 (0.00-0.02) K/uL Sodium 140 (136-145) mmol/L Potassium 4.1 D (3.5-5.1) mmol/L Chloride 107 (98-107) mmol/L Carbon Dioxide 27 (21-32) mmol/L Anion Gap 6.0 (3-11) BUN 8 D (7-18) mg/dl Creatinine 0.67 (0.6-1.2) mg/dl Est Cr Clr Drug Dosing 86.2 ml/min Est GFR ( Amer) 106.2 Est GFR (Non-Af Amer) 91.6 BUN/Creatinine Ratio 12.1 (10-20) Glucose 90 (70-99) mg/dl Calcium 9.3 (8.5-10.1) mg/dl Total Bilirubin 0.7 (0.2-1) mg/dl Direct Bilirubin 0.2 (0-0.2) mg/dl AST 11 L (15-37) U/L ALT 19 (12-78) U/L Alkaline Phosphatase 65 (45-117) U/L Troponin I < 0.015 (0-0.045) ng/ml Total Protein 5.9 L D (6.4-8.2) gm/dl Albumin 2.7 L (3.4-5.0) gm/dl Lipase 109 (73-393) U/L COVID-19 Eval Order SARS-CoV-2, RNA, NAAT (NEGATIVE) 06/02/20 06/02/20 06/02/20 Range/Units 13:38 10:40 10:40 WBC (4.8-10.8) K/uL RBC (4.2-5.4) M/uL Hgb (12.0-16.0) g/dL Hct (37-47) % MCV (80-100) fL MCH (25-34) pg MCHC (32-36) g/dL RDW Std Deviation (36.4-46.3) fL RDW Coeff of Myesha (11.5-14.5) % Plt Count (130-400) K/uL MPV (7.4-10.4) fL Immature Gran % (Auto) % Neut % (Auto) % Lymph % (Auto) % [place] % (Auto) % Eos % (Auto) % Baso % (Auto) % Neut # (Auto) (1.4-6.5) K/uL Lymph # (Auto) (1.2-3.4) K/uL [place] # (Auto) (0.11-0.59) K/uL Eos # (Auto) (0-0.5) K/uL Baso # (Auto) (0-0.2) K/uL Immature Gran # (Auto) (0.00-0.02) K/uL Sodium (136-145) mmol/L Potassium (3.5-5.1) mmol/L Chloride (98-107) mmol/L Carbon Dioxide (21-32) mmol/L Anion Gap (3-11) BUN (7-18) mg/dl Creatinine (0.6-1.2) mg/dl Est Cr Clr Drug Dosing ml/min Est GFR ( Amer) Est GFR (Non-Af Amer) BUN/Creatinine Ratio (10-20) Glucose (70-99) mg/dl Calcium (8.5-10.1) mg/dl Total Bilirubin (0.2-1) mg/dl Direct Bilirubin (0-0.2) mg/dl AST (15-37) U/L ALT (12-78) U/L Alkaline Phosphatase (45-117) U/L Troponin I < 0.015 (0-0.045) ng/ml Total Protein (6.4-8.2) gm/dl Albumin (3.4-5.0) gm/dl Lipase (73-393) U/L COVID-19 Eval Order Covid19 [facility] SARS-CoV-2, RNA, NAAT NEGATIVE (NEGATIVE)
--- NOTE | 2020-06-03 08:46 | Anesthesiology Consultation ---
Date of Service June 03, 2020 History Surgery Operation Date: 06/03/20 16:30 Proposed Procedures p Esophagogastroduodenoscopy Dr Begum - Anoop Smith MD Height/Weight Height: 5 ft 4 in Weight: 83.3 kg Allergies Allergy/AdvReac Type Severity Reaction Status Date / Time No Known Allergies Allergy Mild Verified 06/02/20 06:12 Medications Home Medications Medication Instructions Recorded Confirmed Last Taken multivitamin 1 tab PO HS 03/30/18 06/02/20 12/24/19 21:00 citalopram 10 mg tablet 10 mg PO QAM #90 tab 10/17/19 06/02/20 12/26/19 06:00 amoxicillin 2,000 mg PO UD PRN 12/19/19 06/02/20 Unknown citalopram 20 mg PO HS 12/19/19 06/02/20 12/25/19 21:00 amoxicillin 500 mg tablet 2,000 mg PO ONCE #4 tab 02/25/20 06/02/20 Unknown atorvastatin 20 mg tablet 20 mg PO HS #90 tab 02/25/20 06/02/20 Unknown Active Medications Generic Name Dose Route Start Last Admin Trade Name Freq PRN Reason Stop Dose Admin Citalopram Hydrobromide 20 mg 06/02/20 21:00 06/02/20 21:06 Citalopram 20 Mg Tab PO 07/02/20 20:59 Not Given HS SHI Hydromorphone HCl 0.5 mg 06/02/20 13:44 06/03/20 06:11 Hydromorphone Inj 0.5 Mg/0.5 Ml Syr IV 06/16/20 13:43 0.5 mg Q4H PRN Administration Pain Lactated Ringer's 1,000 mls @ 150 mls/hr 06/02/20 13:30 06/03/20 03:14 Lr IV 07/02/20 13:29 150 mls/hr .[id number] SHI Administration Pantoprazole Sodium 40 mg/ 10 mls @ 5 mls/min 06/02/20 21:00 06/02/20 21:06 Syringe IV 07/02/20 20:59 5 mls/min BID SHI Administration Ondansetron HCl 4 mg 06/02/20 13:45 06/02/20 21:05 Ondansetron Inj 2 Mg/Ml 2 Ml Vial IV 07/02/20 13:44 4 mg Q6H PRN Administration Nausea Past Medical History Medical History Anxiety Hyperlipidemia Osteoarthritis Past Family History Family History Father , age 44 of [place] Diabetes Cardiac disorder Family/Other No problems noted. Mother , age in 70s of an [place] Diabetes Cardiac disorder Hypertension Other No family history of adverse response to anesthesia Past Surgical History Surgical History History of bilateral tubal ligation History of cholecystectomy History of colonoscopy History of esophagogastroduodenoscopy (EGD) History of tonsillectomy and adenoidectomy History of tooth extraction History of total replacement of both hip joints History of wisdom tooth extraction Social History Smoking Status: Never smoker Hx Alcohol Use: Yes Alcohol type: beer and wine alcohol intake frequency: a few times a week Hx Substance Use: No substance use type: does not use Physical Exam Vital Signs Last Vital Signs Temp 36.9 C 06/03/20 07:14 Pulse 80 06/03/20 07:53 Resp 18 06/03/20 07:14 BP 112/69 06/03/20 07:14 Pulse Ox 92 06/03/20 07:14 Testing Laboratory Results 06/03/20 06:01 06/03/20 06:01 Urine Color Dark Yellow 06/02/20 06:17 Urine Appearance Clear (Clear) 06/02/20 06:17 Urine pH 7.0 (4.5-7.5) 06/02/20 06:17 Ur Specific [place] 1.028 (1.000-1.030) 06/02/20 06:17 Urine Protein 1+ (Negative) H 06/02/20 06:17 Urine Glucose (UA) Negative (Negative) 06/02/20 06:17 Urine Ketones 1+ (Negative) H 06/02/20 06:17 Urine Nitrite Negative (Negative) 06/02/20 06:17 Ur Leukocyte Esterase Negative (Negative) 06/02/20 06:17 Urine WBC (Auto) 1-5 /hpf (0-5) 06/02/20 06:17 Urine RBC (Auto) 5-10 /hpf (0-4) H 06/02/20 06:17 U Hyaline Cast (Auto) 1-5 /lpf (0-5) 06/02/20 06:17 U Epithel Cells (Auto) 10-20 /lpf (0-5) H 06/02/20 06:17 Urine Bacteria (Auto) Negative (Negative) 06/02/20 06:17 Electrocardiogram Date: 06/03/20 Normal sinus rhythm Normal ECG When compared with ECG of 02-JUN-2020 06:43, No significant change was found
[2020-06-03] MEDS: PANTOprazole 40 MG in SYRINGE 0 ML IV SCH (09:06)
[2020-06-03] MEDS: ONDANSETRON INJ 2 MG/ML 2 ML VIAL IV PRN (09:06)
[2020-06-03] MEDS ORDERED: PROPOFOL IV EMULSION 10 MG/ML 20 ML VIAL IV ONE ×2 (09:08→09:49)
[2020-06-03] MEDS ORDERED: LIDOCAINE HCL 2% 2 ML VIAL/AMP(20MG/ML) INFIL ONE (09:08)
[2020-06-03] MEDS ORDERED: DEXAMETHASONE SOD INJ 4 MG/ML VIAL ONE (09:30)
--- NOTE | 2020-06-03 10:01 | GI REPORT ---
Patient Name: Eugenie Dee Procedure Date: 06/03/2020 9:42 AM Date of : 1955 Admit Type: Outpatient Age: 64 Gender: Female Attending MD: Anoop Smith MD Procedure: Upper GI endoscopy Providers: Anoop Smith MD Referring MD: Ace Ortega Md Indications: Abdominal pain Medicines: See the Anesthesia note for documentation of the administered medications Complications: No immediate complications. Estimated Blood Loss: Estimated blood loss: none. Procedure: Pre-Anesthesia Assessment: - ASA Grade Assessment: III - A patient with severe systemic disease. After obtaining informed consent, the endoscope was passed under direct vision. Throughout the procedure, the patient's blood pressure, pulse, and oxygen saturations were monitored continuously. The Endoscope was introduced through the mouth, and advanced to the second part of duodenum. The upper GI endoscopy was accomplished without difficulty. The patient tolerated the procedure well. Findings: The Z-line was found 39 cm from the incisors. The exam of the esophagus was otherwise normal. Multiple erosions seen in gastric antrum. Stomach was otherwise normal. There was a mild bulge, likely resulting from extrinsic compression, in the duodenal bulb. The mucosa of the duodenum was normal, and there was bile seen in the second portion of the duodenum. Biopsies taken from stomach and from duodenum. Impression: - Antral gastritis. Bulge in stomach. 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 Recommendation: - Discharge patient to floor. Twice daily PPI. Abdominal MRI with contrast/MRCP to r/o divisum, evidence of chornic pancreatitis, occult neoplasia. Anoop Smith M.D. Anoop Smith MD 06/03/2020 10:01:12 AM This report has been signed electronically. Note Initiated On: 06/03/2020 9:42 AM Number of Addenda: 0 I attest to the content of the Intraoperative Record and orders documented therein, exceptions below {[id number]}
--- NOTE | 2020-06-03 10:35 | Gastroenterology Progress Note ---
Date of Service June 03, 2020 Assessment & Plan Admission and Anticipated Discharge Date Admission Date: June 02, 2020 Subjective EGD showed mild antral gastritis. Based on CT and description of epigastric pain rad to back, I suspect possible groove pancreatitis. Rec diet to clears, pancreas MRI/MRCP, reglan for nausea. Results & Data ([facility]) Vital Signs (Past 12 Hours) Vital Signs Temp Pulse Pulse Resp BP Pulse Ox 06/03/20 10:29 76 16 136/82 96 06/03/20 10:14 73 16 133/82 94 06/03/20 09:59 82 16 122/79 96 06/03/20 09:26 36.7 C 71 18 138/74 95 06/03/20 07:53 80 06/03/20 07:14 36.9 C 78 18 112/69 92 06/03/20 02:39 37.1 C 72 15 113/70 92 06/03/20 01:39 81 06/02/20 23:23 37.1 C 75 15 109/68 93
[2020-06-03] MEDS ORDERED: BUTALBITAL/ACETAMIN/CAFFEINE TAB PO PRN (10:53)
--- NOTE | 2020-06-03 11:42 | Anesthesiology Progress Note ---
Date of Service June 03, 2020 Anesthesia Post Procedure Vital Signs Vital Signs: Temp Pulse Pulse Pulse Resp BP Pulse Ox 06/03/20 11:21 36.6 C 77 20 128/80 95 06/03/20 10:29 76 16 136/82 96 06/03/20 10:14 73 16 133/82 94 06/03/20 09:59 82 16 122/79 96 06/03/20 09:26 36.7 C 71 18 138/74 95 06/03/20 07:53 80 06/03/20 07:14 36.9 C 78 18 112/69 92 06/03/20 02:39 37.1 C 72 15 113/70 92 06/03/20 01:39 81 06/02/20 23:23 37.1 C 75 15 109/68 93 06/02/20 18:51 36.7 C 88 20 143/80 H 92 06/02/20 16:24 91 H 06/02/20 14:58 37.3 C 85 20 148/83 H 92 06/02/20 13:32 37.1 C 86 20 142/86 H 94 06/02/20 13:26 37.4 C 84 18 136/77 97 06/02/20 11:57 84 18 146/91 H 99 Pain Intensity Abdomen: Pain Intensity: 5 Bilateral Head: Pain Intensity: 7 Transfer of Care Handoff Completed per policy Notes Mental Status: alert / awake / arousable and participated in evaluation Patient Amnestic to Procedure: Yes Nausea / Vomiting: adequately controlled Pain: adequately controlled Airway Patency, RR, SpO2: stable & adequate BP & HR: stable & adequate Hydration State: stable & adequate Anesthetic Complications: no major complications apparent and Pt Satisfied with anesthetic care
--- NOTE | 2020-06-03 13:07 | Hospitalist Progress Note ---
Date of Service June 03, 2020 Assessment & Plan (1) Epigastric pain: Epigastric pain Secondary to antral gastritis, possible group pancreatitis -CT ABD: There is inflammatory change seen between the pancreatic head and the distal stomach/proximal duodenum. Mild wall thickening is noted within the distal stomach/proximal duodenum with associated mucosal hyperemia. Differential considerations include acute pancreatitis, ulcer disease, or possibly a distal gastritis/duodenitis. Correlation with clinical findings and laboratory studies will be essential. Endoscopy could be considered for further assessment if clinically warranted. -Abdominal MRI pending-- To R/O divisum, evidence of chronic pancreatitis, occult neoplasia. -S/P EGD: Antral gastritis. Bulge in stomach. 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 -Normal Lipase levels -Continue Protonix p.o. twice daily -Clear liquid diet today -Appreciate GI input -Continue IV fluids -Antiemetics as per GI Abnormal EKG EKG showed nonspecific ST abnormality Patient denies chest pain Negative troponins Echo showed no regional wall motion abnormality (2) Anxiety: Continue Celexa (3) Hyperlipidemia: On statin DVT Px: SCDs Code Status Full code Disposition Expected discharge home when medically stable. Admission and Anticipated Discharge Date Admission Date: June 02, 2020 Subjective Patient is seen and examined at bedside EGD earlier today Abdominal pain improved today EGD showed antral gastritis, possible glue pancreatitis Reports headache Denies nausea, vomiting, dizziness, chest pain, dyspnea, diarrhea Review of Systems Review of Systems: All systems reviewed & are unremarkable except as noted in HPI & below Physical Exam Physical Exam: Physical Exam: Vitals signs as noted above General Appearance:Moderately built and nourished, no apparent distress Head: normocephalic, Atraumatic Eyes: normal inspection, EOMI Neck: supple, Trachea midline Respiratory/Chest: Decreased breath sounds, CTA Cardiovascular: S1, S2, No murmur Abdomen/GI:Soft, Minimal RUQ tender, Bowel sounds present, No guarding/rigidity Extremities/Musculoskelatal:normal inspection, no edema Neurologic/Psych:AAOX3, grossly no focal neurological deficits Skin: normal color, warm Results & Data Results & Data ([facility]) Vital Signs (Past 12 Hours) Vital Signs Temp Pulse Pulse Resp BP Pulse Ox 06/03/20 11:21 36.6 C 77 20 128/80 95 06/03/20 10:29 76 16 136/82 96 06/03/20 10:14 73 16 133/82 94 06/03/20 09:59 82 16 122/79 96 06/03/20 09:26 36.7 C 71 18 138/74 95 06/03/20 07:53 80 06/03/20 07:14 36.9 C 78 18 112/69 92 06/03/20 02:39 37.1 C 72 15 113/70 92 06/03/20 01:39 81 Laboratory Results Short CBC 06/03/20 Range/Units 06:01 WBC 8.78 (4.8-10.8) K/uL Hgb 12.0 D (12.0-16.0) g/dL Hct 35.8 L (37-47) % Plt Count 249 (130-400) K/uL BMP 06/03/20 06:01 Sodium 140 Potassium 4.1 D Chloride 107 Carbon Dioxide 27 BUN 8 D Creatinine 0.67 Glucose 90 Calcium 9.3 Cardiac Enzymes 06/02/20 06/02/20 Range/Units 13:38 18:19 Troponin I < 0.015 < 0.015 (0-0.045) ng/ml Liver Function 06/03/20 Range/Units 06:01 Total Bilirubin 0.7 (0.2-1) mg/dl Direct Bilirubin 0.2 (0-0.2) mg/dl AST 11 L (15-37) U/L ALT 19 (12-78) U/L Alkaline Phosphatase 65 (45-117) U/L Albumin 2.7 L (3.4-5.0) gm/dl (1) Hyperlipidemia Hyperlipidemia type: unspecified Qualified Code(s): E78.5 - Hyperlipidemia, unspecified
[2020-06-03] MEDS ORDERED: GADOBUTROL 65ML VIAL IV ONE (13:10)
--- NOTE | 2020-06-03 13:32 | Magnetic Resonance Report ---
MRI OF THE ABDOMEN COMBO; MRCP CLINICAL HISTORY: Epigastric abdominal pain. Recent endoscopy. COMPARISON STUDY: Abdominal CT dated 06/02/2020.. TECHNIQUE: MRI of the abdomen is performed transverse T1 and T2-weighted sequences in the axial and c oronal planes. Contrast enhanced sequences were acquired following the IV administration of 8.5 cc o f Gadavist. Subtraction imaging was utilized. Additional high-resolution MRCP images were obtained. 3 -D reformats are created and assessed. The examination is modestly degraded by motion artifact. FINDINGS: Lower chest: There are trace pleural effusions with dependent atelectasis. The heart is normal in siz e. Liver: The liver is normal in size, contour, and signal intensity. There is mild intrahepatic biliary ductal dilatation. The hepatic veins and portal veins are patent. Gallbladder/MRCP: The gallbladder surgically absent. The common bile duct measures up to 5 mm diamete r. There are no intraluminal filling defects to suggest choledocholithiasis. The pancreatic duct is n ormal in caliber. Spleen: Normal in size and signal intensity. Pancreas: Soft tissue infiltration and trace fluid is again seen between the distal stomach, the prox imal duodenum, and the pancreas. The pancreas is otherwise normal in appearance. The pancreatic duct is normal in caliber and the gland enhances homogeneously. No peripancreatic fluid collection is iden tified. There is no MRI evidence of enhancing mass lesion. Adrenal glands: Unremarkable. Kidneys: The kidneys are normal in size and without hydronephrosis. The kidneys enhance and excrete s ymmetrically. A circumaortic left renal vein is incidentally noted. Abdominal aorta: The abdominal aorta is normal in course and caliber. Bowel: Visualized portions of the small bowel and colon show no evidence of obstruction. Peritoneum: There is no abdominal ascites. Lymphadenopathy: None. Skeletal structures: Visualized skeletal structures times are normal marrow signal intensity. IMPRESSION: 1. Again seen is mild inflammatory change between the pancreatic head, the distal stomach, and the pr oximal duodenum. Differential considerations are unchanged. 2. There is no evidence of enhancing mass lesion. Correlate with endoscopy results. 3. Status post cholecystectomy. 4. Otherwise normal MRCP. 5. Trace pleural effusions. ACT 112: Negative or not required by law. Electronically signed by: Alvaro Kapoor M.D. 06/03/2020 1:31 PM
--- NOTE | 2020-06-03 14:29 | Electrocardiogram Report ---
Test Reason : Blood Pressure : / mmHG Vent. Rate : 073 BPM Atrial Rate : 073 BPM P-R Int : 138 ms QRS Dur : 092 ms QT Int : 386 ms P-R-T Axes : 047 065 072 degrees QTc Int : 425 ms Normal sinus rhythm Normal ECG When compared with ECG of 02-JUN-2020 06:43, No significant change was found Confirmed by Cedric Silvestre ([id number]) on 06/03/2020 2:28:44 PM Referred By: REFERRED SELF Confirmed By:Cedric Silvestre
[2020-06-03] MEDS: ACETAMINOPHEN 325 MG TAB PO PRN (19:37)
[2020-06-03] MEDS: ATORVASTATIN 20 MG TAB PO SCH (21:07)
[2020-06-03] MEDS: MELATONIN 3 MG TAB PO PRN (21:07)
[2020-06-03] MEDS: PANTOprazole 40 MG TAB PO SCH (21:07)
[2020-06-03] MEDS: METOCLOPRAMIDE HCL INJ 5 MG/ML 2 ML VIAL IV SCH (21:08)
[2020-06-04] MEDS: ONDANSETRON INJ 2 MG/ML 2 ML VIAL IV PRN (01:44)
[2020-06-04] MEDS: LACTATED RINGER'S 1,000 ML IV SCH (01:44)
[2020-06-04] MEDS: ACETAMINOPHEN 325 MG TAB PO PRN (05:43)
[2020-06-04 07:01] LABS: Hematocrit (blood only) 33.1 % (37-47); Hemoglobin 11.1 g/dL (12.0-16.0); Mean Corpuscular Hemoglobin 31.7 pg (25-34); Mean Corpuscular Hgb Conc 33.5 g/dL (32-36); Mean Corpuscular Volume 94.6 fL (80-100); Mean Platelet Volume 9.2 fL (7.4-10.4); Platelet Count 241 K/uL (130-400); RDW Coefficient of Variation 13.6 % (11.5-14.5); RDW Standard Deviation 46.9 fL (36.4-46.3); White Blood Count 7.52 K/uL (4.8-10.8)
[2020-06-04 07:32] LABS: Creatinine Clr Calc Pharmacy 77.3 ml/min; Est GFR (African American) 96.3; Est GFR (Non-African American) 83.1; Magnesium 1.9 mg/dl (1.8-2.4); Potassium 3.6 mmol/L (3.5-5.1)
--- NOTE | 2020-06-04 08:26 | Gastroenterology Progress Note ---
Date of Service June 04, 2020 Assessment & Plan (1) Epigastric pain: 64 year old female admitted through the ED w/ upper abd pain, nausea/vomiting food aversion, onset Tuesday, leukocytosis but afebrile w/ stable vitals. lipase and LFTs unremarkable. CTAP w/ inflammatory change between the pancreatic head and the stomach/duodenum w/ wall thickening in distal stomach/proximal duodenum with associated mucosal hyperemia. EGD w/ gastritis, bulge in stomach, MR/MRCP without much change from CT Clear liquids this AM Advance to low fat for lunch Can DC IV maintenance since tolerating PO, had 48 hours on fluid Analgesia PRN Antiemetics PRN No NSAIDs PO PPI BID OP EUS likely within 4 weeks but will discuss with attending. Will sign off. Thank you for allowing us to participate in the care of this patient. Please call with any acute changes, questions or concerns. Please see addendum below with additional recommendation from my supervising physician. Attg add: I interviewed and examined pt, reviewed chart and labs. Pt without abdominal pain or nausea this morning. MRI shows no evidence of divisum or mass, no pD dil; possible ampulla of edema. I reviewed differential with patient - suspect pancreatitis related to stones, cannot r/o panc ca. OK for d/c home once deyanira PO, plan outpt EUS in 6 weeks. Admission and Anticipated Discharge Date Admission Date: June 02, 2020 Subjective Pt was seen and evaluated, chart reviewed. No acute events noted. Feeling well, tolerating clear liquids Pain is improved No nausea, vomiting. Appetite not back to baseline. No black or bloody stools. EGD: Antral gastritis. Bulge in stomach. 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 MRI: Again seen is mild inflammatory change between the pancreatic head, the distal stomach, and the proximal duodenum. Differential considerations are unchanged. There is no evidence of enhancing mass lesion. Correlate with endoscopy results.Status post cholecystectomy. Otherwise normal MRCP. Trace pleural effusions. CTAP: There is inflammatory change seen between the pancreatic head and the distal stomach/proximal duodenum. Mild wall thickening is noted within the distal stomach/proximal duodenum with associated mucosal hyperemia. Differential considerations include acute pancreatitis, ulcer disease, or possibly a distal gastritis/duodenitis. Correlation with clinical findings and laboratory studies will be essential. Endoscopy could be considered for further assessment if clinically warranted. The pancreas enhances homogeneously. There is no organized fluid collection in the upper abdomen or intraperitoneal free air. Review of Systems Constitutional: no fever, no chills and no fatigue Respiratory: no cough and no dyspnea Cardiovascular: no chest pain and no dyspnea Gastrointestinal: no abdominal pain, no nausea, no coffee ground emesis, no hematemesis, no diarrhea/loose stools, no blood in stools and no melena Physical Exam Constitutional: well developed and well nourished; no acute distress and not ill appearing Neck: trachea midline Respiratory: normal respiratory effort; no respiratory distress and no labored breathing Cardiovascular: Rate/Rhythm: regular rate and regular rhythm Gastrointestinal (Abdomen): Percussion/Palpation: abdomen soft; abdomen nontender, no guarding and abdomen not rigid Skin: no rashes, warm and dry Results & Data ([facility]) Vital Signs (Past 12 Hours) Vital Signs Temp Pulse Pulse Resp BP BP Pulse Ox 06/04/20 07:35 36.8 C 55 L 20 120/74 94 06/04/20 07:12 69 06/04/20 02:34 36.6 C 72 18 113/69 95 06/03/20 22:38 37.2 C 61 18 110/65 96 Laboratory Results 06/04/20 06/04/20 Range/Units 06:32 06:32 WBC 7.52 (4.8-10.8) K/uL RBC 3.50 L (4.2-5.4) M/uL Hgb 11.1 L (12.0-16.0) g/dL Hct 33.1 L (37-47) % MCV 94.6 (80-100) fL MCH 31.7 (25-34) pg MCHC 33.5 (32-36) g/dL RDW Std Deviation 46.9 H (36.4-46.3) fL RDW Coeff of Myesha 13.6 (11.5-14.5) % Plt Count 241 (130-400) K/uL MPV 9.2 (7.4-10.4) fL Sodium 141 (136-145) mmol/L Potassium 3.6 (3.5-5.1) mmol/L Chloride 108 H (98-107) mmol/L Carbon Dioxide 29 (21-32) mmol/L Anion Gap 4.0 (3-11) BUN 9 (7-18) mg/dl Creatinine 0.75 (0.6-1.2) mg/dl Est Cr Clr Drug Dosing 77.3 ml/min Est GFR ( Amer) 96.3 Est GFR (Non-Af Amer) 83.1 BUN/Creatinine Ratio 12.0 (10-20) Glucose 97 (70-99) mg/dl Calcium 9.0 (8.5-10.1) mg/dl Magnesium 1.9 (1.8-2.4) mg/dl
[2020-06-04] MEDS: CITALOPRAM 20 MG TAB PO SCH ×2 (08:39→20:44)
[2020-06-04] MEDS: METOCLOPRAMIDE HCL INJ 5 MG/ML 2 ML VIAL IV SCH ×2 (08:39→20:45)
[2020-06-04] MEDS: PANTOprazole 40 MG TAB PO SCH ×2 (08:39→20:44)
--- NOTE | 2020-06-04 09:11 | Hospitalist Progress Note ---
Date of Service June 04, 2020 Assessment & Plan (1) Epigastric pain: Epigastric pain Secondary to antral gastritis, possible pancreatitis -CT ABD: There is inflammatory change seen between the pancreatic head and the distal stomach/proximal duodenum. Mild wall thickening is noted within the distal stomach/proximal duodenum with associated mucosal hyperemia. Differential considerations include acute pancreatitis, ulcer disease, or possibly a distal gastritis/duodenitis. Correlation with clinical findings and laboratory studies will be essential. Endoscopy could be considered for further assessment if clinically warranted. -Abdominal MRI noted, differential unchanged -S/P EGD: Antral gastritis. Bulge in stomach. 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 -Normal Lipase levels -Continue Protonix p.o. twice daily -Adv diet -Appreciate GI input -Continue IV fluids -Antiemetics as per GI -DC later today if tolerating lunch Abnormal EKG EKG showed nonspecific ST abnormality Patient denies chest pain Negative troponins Echo showed no regional wall motion abnormality (2) Anxiety: Continue Celexa (3) Hyperlipidemia: On statin DVT Px: SCDs Code Status Full code Disposition Possibly today if deyanira lunch Labs checked PT seen just ate breakfast and feeling better, ADAT DC when OK c GI ROS-No Headache, No Visual Changes, No Nausea, No Vomiting, No Fever, No Chills, No Neck Pain or Stiffness, No Chest Pain, No Palpitations, No SOB, No BEDOLLA, No Cough, No Sputum, No Wheezing, + Mild epigastric Abdominal Pain, No Diarrhea, No Hematemesis, No Hemoptysis, No Unexpected Weight Loss, No Flank pain, No Melena, No Hematochezia, No Frequency, No Urgency, No Burning, No Hematuria, No Rashes, No Diaphoresis. Appetite is Normal Physical Exam Gen-AAO x 3, NAD, Afebrile Head-NCAT, EOMI, PERRLA, Anicteric Sclera, No Posterior Pharyngeal Erythema Neck-Supple, No JVD, No Thyromegaly, No Masses, No LAD, No Bruits Lungs-Clear to Auscultation Bilaterally, No Rales, No Rhonchi, No Wheezing, No Crepitus Chest-No S4, +S1, +S2, No S3, No Murmurs, No Rubs, No Gallops, No Ectopy Abdomen-Soft, Bowel Sounds Present, Epigastric area Tender, Non Distended, No Hepatomegaly, No Splenomegaly, No Palpable Masses, No Rebound, No Rigidity, No Guarding Musculoskeletal-Full Range of Motion Bilaterally, No CVAT Extremities-No Cyanosis, No Clubbing, No Edema Nuero-Cranial Nerves II-XII grossly intact, Motor WNL, DTRs WNL, Strength WNL, Non Focal Psych-Normal Mood Admission and Anticipated Discharge Date Admission Date: June 02, 2020 Results & Data Results & Data ([facility]) Vital Signs (Past 12 Hours) Vital Signs Temp Pulse Pulse Resp BP BP Pulse Ox 06/04/20 07:35 36.8 C 55 L 20 120/74 94 06/04/20 07:12 69 06/04/20 02:34 36.6 C 72 18 113/69 95 06/03/20 22:38 37.2 C 61 18 110/65 96 (1) Hyperlipidemia Hyperlipidemia type: unspecified Qualified Code(s): E78.5 - Hyperlipidemia, unspecified
--- NOTE | 2020-06-04 11:19 | Discharge Summary ---
Date of Service June 04, 2020 Admission HPI Per Admitting Provider This is a 64 y/o female with a PMH of dyslipidemia and anxiety who presents to the ED with worsening epigastric pain over the past two days. Pt reports eating a salad for lunch on Tuesday after which, about an hour later, she developed epigastric to RUQ pain that has been gradually worsening since then. She describes the pain as "gnawing" with radiation both through and around to her back and RUQ. She reports similar pain when she had her gallbladder taken out but not as severe as current episode. Pain is constant but in a crescendo- decrescendo pattern. Started with nausea last night but has noted bilious vomiting the past two nights. No hematemesis. Denies heartburn, indigestion, melena, hematochezia, dysphagia, constipation. She did have some diarrhea about a week ago but this has resolved. Noted chills last night but no documented fevers. No recent unexplained weight loss. No prior history of peptic ulcer disease. She does take ibuprofen for headaches or "aches and pains" about 3x/week. She has tried Tylenol for her current symptoms without relief. Has not eaten solid foods since Tuesday. Only had small amounts of liquids yesterday. She does note that her stomach has been intermittently unsettled, typically after eating, for the past month. On Tuesday morning, before lunch, something felt "off" but otherwise had been feeling okay prior to current episode. Morphine in the ED took the edge off her pain. Nausea worse when pain severe. Of note, pt received the first dose of the COVID vaccine two weeks ago. Admission Exam Per Admitting Provider Constitutional: WD/WN, vitals as above no acute distress Eyes: PERRL, conjunctivae normal, anicteric sclerae Neck: trachea midline Respiratory: no respiratory distress and no labored breathing Auscultation: lungs clear to auscultation bilaterally; no rales, no rhonchi and no wheezes Cardiovascular: Rate/Rhythm: regular rate and regular rhythm Heart Sounds: no gallop, no murmur and no cardiac rub Vessels: dorsalis pedis pulses present and radial pulses present; no carotid bruit Gastrointestinal (Abdomen): Inspection/Auscultation: normal bowel sounds; abdomen not distended Percussion/Palpation: + abdomen tender (mild to moderate tenderness in epigastric/RUQ areas) and abdomen soft; no guarding Musculoskeletal: Head/Neck/Chest: normocephalic, head atraumatic and neck supple Extremities: no cyanosis and no clubbing Skin: no rashes, warm and dry no jaundice Neurologic: moves all extremities; no focal motor deficits Psychiatric: A+Ox3, euthymic affect Principal Diagnosis Epigastric pain Antral gastritis Abnormal EKG Anxiety: Hyperlipidemia: Discharge Exam see below Discharge Data Allergies Allergy/AdvReac Type Severity Reaction Status Date / Time No Known Allergies Allergy Mild Verified 06/02/20 06:12 Consultations 06/02/20 11:03 ED Decision to Admit Stat 06/02/20 12:14 Consult Gastroenterology Routine Procedures Performed Operation Date: 06/03/20 16:30 Actual Procedures p EGD Biopsy Cytology - Anoop Smith MD Ordered Studies 06/02/20 07:21 CT abd pelvis IV con only Stat 06/03/20 10:26 MR abdomen wo/w con Routine Current Diagnoses Hyperlipidemia, unspecified (06/02/20) Anxiety disorder, unspecified (06/02/20) Epigastric pain (06/02/20) Allergies No Known Allergies Allergy (Mild, Verified 06/02/20 06:12) Height/Weight/Isolation Height 5 ft 4 in Weight 83.9 kg Chemistry 06/03/20 06/04/20 06:01 06:32 Sodium 140 141 Potassium 4.1 D 3.6 Chloride 107 108 H Carbon Dioxide 27 29 Anion Gap 6.0 4.0 BUN 8 D 9 Creatinine 0.67 0.75 Glucose 90 97 Hospital Course (1) Epigastric pain: Epigastric pain Secondary to antral gastritis, possible pancreatitis -CT ABD: There is inflammatory change seen between the pancreatic head and the distal stomach/proximal duodenum. Mild wall thickening is noted within the distal stomach/proximal duodenum with associated mucosal hyperemia. Differential considerations include acute pancreatitis, ulcer disease, or possibly a distal gastritis/duodenitis. Correlation with clinical findings and laboratory studies will be essential. Endoscopy could be considered for further assessment if clinically warranted. -Abdominal MRI noted, differential unchanged -S/P EGD: Antral gastritis. Bulge in stomach. 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 -Normal Lipase levels -Continue Protonix p.o. twice daily -Adv diet -GI Signed off -DC today if tolerating lunch Abnormal EKG EKG showed nonspecific ST abnormality Patient denies chest pain Negative troponins Echo showed no regional wall motion abnormality (2) Anxiety: Continue Celexa (3) Hyperlipidemia: On statin DVT Px: SCDs Code Status Full code Disposition DC today if deyanira lunch Labs checked PT seen just ate breakfast and feeling better, ADAT GI s/o rec-No NSAIDs, PO PPI BID, OP EUS likely within 4 weeks but will discuss with attending. ROS-No Headache, No Visual Changes, No Nausea, No Vomiting, No Fever, No Chills, No Neck Pain or Stiffness, No Chest Pain, No Palpitations, No SOB, No BEDOLLA, No Cough, No Sputum, No Wheezing, + Mild epigastric Abdominal Pain, No Diarrhea, No Hematemesis, No Hemoptysis, No Unexpected Weight Loss, No Flank pain, No Melena, No Hematochezia, No Frequency, No Urgency, No Burning, No Hematuria, No Rashes, No Diaphoresis. Appetite is Normal Physical Exam Gen-AAO x 3, NAD, Afebrile Head-NCAT, EOMI, PERRLA, Anicteric Sclera, No Posterior Pharyngeal Erythema Neck-Supple, No JVD, No Thyromegaly, No Masses, No LAD, No Bruits Lungs-Clear to Auscultation Bilaterally, No Rales, No Rhonchi, No Wheezing, No Crepitus Chest-No S4, +S1, +S2, No S3, No Murmurs, No Rubs, No Gallops, No Ectopy Abdomen-Soft, Bowel Sounds Present, Epigastric area Tender, Non Distended, No Hepatomegaly, No Splenomegaly, No Palpable Masses, No Rebound, No Rigidity, No Guarding Musculoskeletal-Full Range of Motion Bilaterally, No CVAT Extremities-No Cyanosis, No Clubbing, No Edema Nuero-Cranial Nerves II-XII grossly intact, Motor WNL, DTRs WNL, Strength WNL, N on Focal Psych-Normal Mood Total Time Total Time Spent Total Time Spent (In Minutes): 45 mins Total Time Includes: Examination of the Patient, Discharge Planning, Medication Reconciliation and Communication With Other Providers Discharge Plan Discharge Items Patient Disposition: Home - Self-Care Reason For Visit: EPIGASTRIC PAIN Discharge Diagnosis: Epigastric pain Antral gastritis Abnormal EKG Anxiety: Hyperlipidemia Condition on Discharge: Good Health Concerns: Worsening Abd pain Activity: Resume your previous activity Bathing: No limitations Sexual Activity: When tolerated Exercise/Sports: Gradually increase as tolerated Driving/Machine Use: No limitations Weightbearing: Full weightbearing Non-emergency contact: Primary Care Provider and Commodities Manager Call non-emergency contact if: you have any medication questions, your symptoms worsen, your pain is not controlled and your pain is worsening Follow-up/Referrals: Anoop Smith MD [Physician] - (Follow up in 4 weeks) Jared Collado, [Primary Care Provider] - Diet: Heart Healthy Addtl Attending Provider Instructions: Start with a full liquid diet and advance as tolerated No NSAIDS Pending Studies at Discharge: No Stand-Alone Forms: My [employer], Smoking Cessation Medications and DC Order Prescriptions: New acetaminophen 325 mg Tablet 650 mg PO Q8H PRN (Reason: fever or pain) Qty: 100 RF: 0 ydqivadhcs-tgtlucerzsfub-yfmi 50-325-40 mg Tablet 1 tab PO Q8H PRN (Reason: pain) Qty: 30 RF: 0 pantoprazole 40 mg Tablet,Delayed Release (Dr/Ec) 40 mg PO BID Qty: 60 RF: 0 Continued citalopram [Celexa] 10 mg tablet 10 mg PO QAM Qty: 90 RF: 0 amoxicillin 500 mg tablet 2,000 mg PO ONCE Qty: 4 RF: 3 atorvastatin 20 mg tablet 20 mg PO HS Qty: 90 RF: 1 amoxicillin 500 mg tablet 2,000 mg PO UD PRN (Reason: prior to dental procedure) RF: 0 citalopram 20 mg tablet 20 mg PO HS RF: 0 multivitamin Tablet 1 tab PO HS RF: 0 Discharge Orders: Discharge Order (Routine); Ordered 06/04/20 Ordered By: Aydin Kelley Admission Data Admit Date/Time: 06/02/20 11:25 Attending Provider: Aydin Kelley Admit Provider: Ace Ortega Primary Care Provider: Jared Collado Other Providers: Anoop Smith ; Ace Ortega Other Interventions: Discharge Summary Assessment (RN) Last Done: 06/03/20 10:29
[2020-06-04] MEDS: ATORVASTATIN 20 MG TAB PO SCH (20:44)
[2020-06-04] MEDS: MELATONIN 3 MG TAB PO PRN (20:48)
[2020-06-05] MEDS: METOCLOPRAMIDE HCL INJ 5 MG/ML 2 ML VIAL IV SCH (08:29)
[2020-06-05] MEDS: CITALOPRAM 20 MG TAB PO SCH (08:29)
[2020-06-05] MEDS: PANTOprazole 40 MG TAB PO SCH (08:30)
--- NOTE | 2020-06-05 08:35 | Discharge Summary ---
Date of Service June 05, 2020 Admission HPI Per Admitting Provider This is a 64 y/o female with a PMH of dyslipidemia and anxiety who presents to the ED with worsening epigastric pain over the past two days. Pt reports eating a salad for lunch on Tuesday after which, about an hour later, she developed epigastric to RUQ pain that has been gradually worsening since then. She describes the pain as "gnawing" with radiation both through and around to her back and RUQ. She reports similar pain when she had her gallbladder taken out but not as severe as current episode. Pain is constant but in a crescendo- decrescendo pattern. Started with nausea last night but has noted bilious vomiting the past two nights. No hematemesis. Denies heartburn, indigestion, melena, hematochezia, dysphagia, constipation. She did have some diarrhea about a week ago but this has resolved. Noted chills last night but no documented fevers. No recent unexplained weight loss. No prior history of peptic ulcer disease. She does take ibuprofen for headaches or "aches and pains" about 3x/week. She has tried Tylenol for her current symptoms without relief. Has not eaten solid foods since Tuesday. Only had small amounts of liquids yesterday. She does note that her stomach has been intermittently unsettled, typically after eating, for the past month. On Tuesday morning, before lunch, something felt "off" but otherwise had been feeling okay prior to current episode. Morphine in the ED took the edge off her pain. Nausea worse when pain severe. Of note, pt received the first dose of the COVID vaccine two weeks ago. Admission Exam Per Admitting Provider See prev DC summary, this is an addendum Principal Diagnosis See Previous summary Discharge Exam See Previous summary Discharge Data Allergies Allergy/AdvReac Type Severity Reaction Status Date / Time No Known Allergies Allergy Mild Verified 06/02/20 06:12 Consultations 06/02/20 11:03 ED Decision to Admit Stat 06/02/20 12:14 Consult Gastroenterology Routine Procedures Performed Operation Date: 06/03/20 16:30 Actual Procedures p EGD Biopsy Cytology - Anoop Smith MD Ordered Studies 06/02/20 07:21 CT abd pelvis IV con only Stat 06/03/20 10:26 MR abdomen wo/w con Routine Hospital Course (1) Epigastric pain: Epigastric pain Secondary to antral gastritis, possible pancreatitis -CT ABD: There is inflammatory change seen between the pancreatic head and the distal stomach/proximal duodenum. Mild wall thickening is noted within the distal stomach/proximal duodenum with associated mucosal hyperemia. Differential considerations include acute pancreatitis, ulcer disease, or possibly a distal gastritis/duodenitis. Correlation with clinical findings and laboratory studies will be essential. Endoscopy could be considered for further assessment if clinically warranted. -Abdominal MRI noted, differential unchanged -S/P EGD: Antral gastritis. Bulge in stomach. 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 -Normal Lipase levels -Continue Protonix p.o. twice daily -Adv diet -GI Signed off -DC today if tolerating lunch Abnormal EKG EKG showed nonspecific ST abnormality Patient denies chest pain Negative troponins Echo showed no regional wall motion abnormality (2) Anxiety: Continue Celexa (3) Hyperlipidemia: On statin DVT Px: SCDs Code Status Full code Disposition DC today Labs checked PT seen just ate breakfast and feeling better, ADAT GI s/o rec-No NSAIDs, PO PPI BID, OP EUS likely within 4 weeks but will discuss with attending. ROS-No Headache, No Visual Changes, No Nausea, No Vomiting, No Fever, No Chills, No Neck Pain or Stiffness, No Chest Pain, No Palpitations, No SOB, No BEDOLLA, No Cough, No Sputum, No Wheezing, + Mild epigastric Abdominal Pain, No Diarrhea, No Hematemesis, No Hemoptysis, No Unexpected Weight Loss, No Flank pain, No Melena, No Hematochezia, No Frequency, No Urgency, No Burning, No Hematuria, No Rashes, No Diaphoresis. Appetite is Normal Physical Exam Gen-AAO x 3, NAD, Afebrile Head-NCAT, EOMI, PERRLA, Anicteric Sclera, No Posterior Pharyngeal Erythema Neck-Supple, No JVD, No Thyromegaly, No Masses, No LAD, No Bruits Lungs-Clear to Auscultation Bilaterally, No Rales, No Rhonchi, No Wheezing, No Crepitus Chest-No S4, +S1, +S2, No S3, No Murmurs, No Rubs, No Gallops, No Ectopy Abdomen-Soft, Bowel Sounds Present, Epigastric area Tender, Non Distended, No Hepatomegaly, No Splenomegaly, No Palpable Masses, No Rebound, No Rigidity, No Guarding Musculoskeletal-Full Range of Motion Bilaterally, No CVAT Extremities-No Cyanosis, No Clubbing, No Edema Nuero-Cranial Nerves II-XII grossly intact, Motor WNL, DTRs WNL, Strength WNL, Non Focal Psych-Normal Mood Total Time Total Time Spent Total Time Spent (In Minutes): 45 min Total Time Includes: Examination of the Patient, Discharge Planning, Medication Reconciliation and Communication With Other Providers Discharge Plan Discharge Items Patient Disposition: Home - Self-Care Reason For Visit: EPIGASTRIC PAIN Discharge Diagnosis: Epigastric pain Antral gastritis Abnormal EKG Anxiety: Hyperlipidemia Condition on Discharge: Good Health Concerns: Worsening Abd pain Activity: Resume your previous activity Bathing: No limitations Sexual Activity: When tolerated Exercise/Sports: Gradually increase as tolerated Driving/Machine Use: No limitations Weightbearing: Full weightbearing Non-emergency contact: Primary Care Provider and Pediatric Radiologist Call non-emergency contact if: you have any medication questions, your symptoms worsen, your pain is not controlled and your pain is worsening Follow-up/Referrals: Anoop Smith MD [Physician] - 07/03/20 10:00 am () Jared Collado DO [Primary Care Provider] - (Date & Time 06/10/2020 11:00 AM Provider Matt Watkins MD Department Family Practice [facility] ) Diet: Heart Healthy Addtl Attending Provider Instructions: Start with a full liquid diet and advance as tolerated No NSAIDS Pending Studies at Discharge: No Stand-Alone Forms: My [facility] [employer], Smoking Cessation Medications and DC Order Prescriptions: New acetaminophen 325 mg Tablet 650 mg PO Q8H PRN (Reason: fever or pain) Qty: 100 RF: 0 emwpceqsvj-ezqieobybiuhf-bsoz 50-325-40 mg Tablet 1 tab PO Q8H PRN (Reason: pain) Qty: 30 RF: 0 pantoprazole 40 mg Tablet,Delayed Release (Dr/Ec) 40 mg PO BID Qty: 60 RF: 0 Continued citalopram [Celexa] 10 mg tablet 10 mg PO QAM Qty: 90 RF: 0 amoxicillin 500 mg tablet 2,000 mg PO ONCE Qty: 4 RF: 3 atorvastatin 20 mg tablet 20 mg PO HS Qty: 90 RF: 1 amoxicillin 500 mg tablet 2,000 mg PO UD PRN (Reason: prior to dental procedure) RF: 0 citalopram 20 mg tablet 20 mg PO HS RF: 0 multivitamin Tablet 1 tab PO HS RF: 0 Discharge Orders: Discharge Order (Routine); Ordered 06/05/20 Ordered By: Aydin Kelley Admission Data Admit Date/Time: 06/02/20 11:25 Attending Provider: Aydin Kelley Admit Provider: Ace Ortega Primary Care Provider: Jared Collado Other Providers: Anoop Smith ; Ace Ortega Other Interventions: Discharge Summary Assessment (RN) Last Done: 06/03/20 10:29
== END 2020-06-05 10:15 | disposition home or self-care (01) | DRG 392 ==
LOC: ED 05:50 → SUATTDRO 11:25 → 2N 11:25

== ENCOUNTER 2022-04-13 17:40 | Inpatient (IN) ==
[2022-04-13 18:57] LABS: Basophils # (auto) 0.05 K/uL (0-0.2); Basophils % (auto) 0.5 %; Eosinophils # (auto) 0.31 K/uL (0-0.50); Eosinophils % (auto) 3.1 %; Hemoglobin 13.4 g/dl (12.0-16.0); Immature Granulocytes # (auto) 0.04 K/uL (0.00-0.02); Immature Granulocytes % (auto) 0.4 %; Lymphocytes # (auto) 1.74 K/uL (1.2-3.4); Lymphocytes % (auto) 17.4 %; Mean Corpuscular Hemoglobin 30.7 pg (25.0-34.0); Mean Corpuscular Hgb Conc 33.5 g/dL (32.0-36.0); Mean Corpuscular Volume 91.5 fL (80.0-100.0); Mean Platelet Volume 9.5 fL (9.4-12.3); Monocytes # (auto) 0.79 K/uL (0.24-0.82); Monocytes % (auto) 7.9 %; Neutrophils # (auto) 7.05 K/uL (1.4-6.5); Neutrophils % (auto) 70.7 %; Platelet Count 282 K/uL (130-400); RDW Coefficient of Variation 12.3 % (11.5-14.5); RDW Standard Deviation 41.5 fL (36.4-46.3); Red Blood Count 4.37 M/uL (3.93-5.22); White Blood Count 9.98 K/ul (4.8-10.8)
[2022-04-13 19:35] LABS: Albumin Globulin Ratio 1.6 (0.9-2); Albumin Level 4.3 gm/dl (3.4-5.0); BUN Creatinine Ratio 15.9 (10-20); Bilirubin,Total 0.4 mg/dl (0.2-1.0); Calcium 9.6 mg/dl (8.5-10.1); Creatinine Clr Calc Pharmacy 69.9 ml/min; Est GFR (African American) 85.2 ml/min; Est GFR (Non-African American) 73.5 ml/min; Globulin 2.7 gm/dl (2.5-4.0); Potassium 3.7 mmol/L (3.5-5.1)
[2022-04-13 19:50] LABS: Appearance Urine Clear (Clear); Bacteria Urine Automated Negative (Negative); Bilirubin Urine Negative (Negative); Blood Urine Trace (Negative); Cast Urine Automated 0 /lpf (0-5); Color Urine Yellow; Glucose Urine UA Negative (Negative); Ketones Urine Negative (Negative); Leukocyte Esterase Urine Trace (Negative); Nitrite Urine Negative (Negative); Protein Urine Negative (Negative); RBC Urine Automated 0-4 /hpf (0-4); Specific Gravity Urine 1.011 (1.000-1.030); Urobilinogen Urine Negative (Negative)
[2022-04-13] MEDS ORDERED: GI COCKTAIL ED USE PO ONE (20:19)
[2022-04-13] MEDS ORDERED: MoRPHine SULFATE 2 MG/ML CARP IV STA (20:19)
--- NOTE | 2022-04-13 20:24 | Emergency Department Note ---
History of Present Illness General Chief complaint: Abdominal Pain Stated complaint: STOMACH PAIN, PANCREATITIS BEFORE Time Seen by Provider: 04/13/22 20:04 History of Present Illness Maximum Pain Intensity: 4 46-year-old female presents to the ED with a chief complaint of epigastric abdo dewayne any vomiting or diarrhea. She has had a little nausea when the pain gets bad and the other specific symptoms at this time. The pain does radiate to the back a little. She states that it feels like previous episode of pancreatitis. She has had the symptoms for the past 3 days. Home Medications Medication Instructions Recorded Confirmed Type multivitamin 1 tab PO HS 03/30/18 04/13/22 History citalopram 20 mg tablet 20 mg PO HS 12/19/19 04/13/22 History atorvastatin 20 mg tablet 20 mg PO HS #90 tabs 02/25/20 04/13/22 Rx cholecalciferol (vitamin D3) 25 0 mcg PO DAILY 04/13/22 04/13/22 History mcg (1,000 unit) tablet (Vitamin D3) etodolac 500 mg tablet,extended 500 mg PO QAM 04/13/22 04/13/22 History release 24 hr ibuprofen 200 mg tablet 400 mg PO Q6H PRN Pain 04/13/22 04/13/22 History Allergies Allergy/AdvReac Type Severity Reaction Status Date / Time No Known Allergies Allergy Mild Verified 04/13/22 21:47 Past Med/Surg History Medical History (Updated 04/13/22 @ 22:55 by Freddie Concepcion DO) Anxiety Hyperlipidemia Osteoarthritis Surgical History History of bilateral tubal ligation History of cholecystectomy History of colonoscopy History of esophagogastroduodenoscopy (EGD) History of tonsillectomy and adenoidectomy History of tooth extraction History of total replacement of both hip joints History of wisdom tooth extraction Family History Father , age 44 of PA Diabetes Cardiac disorder Family/Other No problems noted. Mother , age in 70s of an PA Diabetes Cardiac disorder Hypertension Other No family history of adverse response to anesthesia Social History Smoking Status: Never smoker Second Hand Exposure: Yes (parents smoked); Hx Alcohol Use: Yes Alcohol type: beer and wine Alcohol Intake Frequency: 2-4 x/Month Hx Substance Use: No Preferred Language: [place] Communication Ability: Effective [place] Splitter Required: No Beliefs That Will Affect Care: None marital status: Current Living Situation: Spouse Feels Safe at Home: Yes Seatbelt Use: always Assistive Devices: None Review of Systems A total of 10 systems reviewed and were otherwise negative Physical Exam Vital Signs Vital Signs - 24 hr 04/13/22 17:56 04/13/22 19:35 04/13/22 21:31 Temperature 36.6 C Temperature Source Temporal Artery Scan Pulse Rate 101 H Pulse Rate [Right Brachial] 75 73 Pulse Rhythm [Right Brachial] Regular Regular Pulse Strength [Right Brachial] Normal Normal Respiratory Rate 18 18 19 Respiratory Effort / Characteristics Non-Labored Non-Labored Spontaneous Non-Labored Spontaneous Respiratory Depth Normal Normal Normal Respiratory Pattern Regular Blood Pressure 117/79 Blood Pressure [Right Arm] 161/89 H 144/88 H Blood Pressure Mean 91 Blood Pressure Mean [Right Arm] 113 106 Blood Pressure Position [Right Arm] Lying Lying Pulse Oximetry 96 99 96 Oxygen Delivery Method Room Air Room Air Room Air Sepsis Recent Fever Within 48 Hours No Sepsis New/Unexplained Change in Mental Status No Sepsis Action Taken by Nursing No Action Required 04/13/22 22:24 Temperature Temperature Source Pulse Rate Pulse Rate [Right Brachial] 75 Pulse Rhythm [Right Brachial] Pulse Strength [Right Brachial] Respiratory Rate 18 Respiratory Effort / Characteristics Non-Labored Respiratory Depth Normal Respiratory Pattern Blood Pressure Blood Pressure [Right Arm] 143/92 H Blood Pressure Mean Blood Pressure Mean [Right Arm] 109 Blood Pressure Position [Right Arm] Pulse Oximetry 99 Oxygen Delivery Method Room Air Sepsis Recent Fever Within 48 Hours Sepsis New/Unexplained Change in Mental Status Sepsis Action Taken by Nursing CONSTITUTIONAL/VITAL SIGNS: Reviewed / noted above. GENERAL: Non-toxic in appearance. INTEGUMENTARY: Warm, dry, and [place]. HEAD: Normocephalic. EYES: without scleral icterus or trauma. ENT/OROPHARYNX: clear and moist. LYMPHADENOPATHY/NECK: Is supple without lymphadenopathy or meningismus. RESPIRATORY: Clear to auscultation bilaterally. No increased work of breathing. CARDIOVASCULAR: Regular rate and rhythm. GI/ABDOMEN: Soft and tender in the epigastric area. No organomegaly or pulsatile mass. EXTREMITIES: Warm and well perfused. BACK: No CVA tenderness. NEUROLOGICAL: Intact without focal deficits. PSYCHIATRIC: normal affect. MUSCULOSKELETAL: Normally developed with good muscle tone. TRIAGE NURSING DOCUMENTATION REVIEWED. Course Administered Medications Discontinued Medications Al Hydrox/Mg Hydrox/Simethicone (Gi Cocktail Ed Use) 1 dose PO ONE ONE Stop: 04/13/22 20:20 Last Admin: 04/13/22 20:26 Dose: 1 dose Documented By: BRANDEN Sodium Chloride (Nss 1000ml) 1,000 mls @ 999 mls/hr IV .Q1H1M ONE Stop: 04/13/22 22:25 Last Infusion: 04/13/22 22:27 Dose: 0 mls/hr Documented By: Admin: 04/13/22 21:29 Dose: 999 mls/hr Documented By: BRANDEN Ioversol (Optiray 350 100ml) 85 ml IV ONCE ONE Stop: 04/13/22 20:39 Last Admin: 04/13/22 20:38 Dose: 85 ml Documented By: SAY Morphine Sulfate (Morphine Sulfate 2 Mg/Ml Carp) 2 mg IV NOW STA Stop: 04/13/22 20:20 Last Admin: 04/13/22 20:28 Dose: 2 mg Documented By: BRANDEN Medical Decision Making Differential Diagnosis Differential considered: pancreatitis, hepatitis, acute cholecystitis, AAA, UTI, pyelonephritis, kidney stones, appendicitis, diverticulitis, shingles, bowel obstruction, mesenteric ischemia, intussusception,hernia Medical Records Attestation: I reviewed the patient's medical records. Home Medications Current Medication List: was personally reviewed by me Laboratory Data Attestation: I reviewed the patient's lab results. Result diagrams: 04/13/22 18:38 04/13/22 18:38 Lab Results 04/13/22 04/13/22 04/13/22 Range/Units 18:38 18:38 19:38 WBC 9.98 (4.8-10.8) K/ul RBC 4.37 (3.93-5.22) M/uL Hgb 13.4 (12.0-16.0) g/dl Hct 40.0 (34.1-44.9) % MCV 91.5 (80.0-100.0) fL MCH 30.7 (25.0-34.0) pg MCHC 33.5 (32.0-36.0) g/dL RDW Std Deviation 41.5 (36.4-46.3) fL RDW Coeff of Myesha 12.3 (11.5-14.5) % Plt Count 282 (130-400) K/uL MPV 9.5 (9.4-12.3) fL Immature Gran % (Auto) 0.4 % Neut % (Auto) 70.7 % Lymph % (Auto) 17.4 % [facility] % (Auto) 7.9 % Eos % (Auto) 3.1 % Baso % (Auto) 0.5 % Neut # (Auto) 7.05 H (1.4-6.5) K/uL Lymph # (Auto) 1.74 (1.2-3.4) K/uL [facility] # (Auto) 0.79 (0.24-0.82) K/uL Eos # (Auto) 0.31 (0-0.50) K/uL Baso # (Auto) 0.05 (0-0.2) K/uL Immature Gran # (Auto) 0.04 H (0.00-0.02) K/uL Sodium 138 (136-145) mmol/L Potassium 3.7 (3.5-5.1) mmol/L Chloride 103 (98-107) mmol/L Carbon Dioxide 27 (21-32) mmol/L Anion Gap 8 (3-11) BUN 13 (6-23) mg/dl Creatinine 0.82 (0.6-1.2) mg/dl Est Cr Clr Drug Dosing 69.9 ml/min Est GFR ( Amer) 85.2 ml/min Est GFR (Non-Af Amer) 73.5 ml/min BUN/Creatinine Ratio 15.9 (10-20) Glucose 94 (70-99(Fasting)) mg/dl Calcium 9.6 (8.5-10.1) mg/dl Total Bilirubin 0.4 (0.2-1.0) mg/dl AST 16 (13-39) U/L ALT 12 (7-52) U/L Alkaline Phosphatase 87 (34-104) U/L Total Protein 7.0 (6.0-8.3) gm/dl Albumin 4.3 (3.4-5.0) gm/dl Globulin 2.7 (2.5-4.0) gm/dl Albumin/Globulin Ratio 1.6 (0.9-2) Lipase 102 H (11-82) U/L Urine Color Yellow Urine Appearance Clear (Clear) Urine pH 5.0 (4.5-7.5) Ur Specific [place] 1.011 (1.000-1.030) Urine Protein Negative (Negative) Urine Glucose (UA) Negative (Negative) Urine Ketones Negative (Negative) Urine Blood Trace H (Negative) Urine Nitrite Negative (Negative) Urine Bilirubin Negative (Negative) Urine Urobilinogen Negative (Negative) Ur Leukocyte Esterase Trace H (Negative) Urine WBC (Auto) 1-5 (0-5) /hpf Urine RBC (Auto) 0-4 (0-4) /hpf U Hyaline Cast (Auto) 0 (0-5) /lpf U Epithel Cells (Auto) 10-20 H (0-5) /lpf Urine Bacteria (Auto) Negative (Negative) SARS-CoV-2, RNA, NAAT (NEGATIVE) 04/13/22 Range/Units 21:45 WBC (4.8-10.8) K/ul RBC (3.93-5.22) M/uL Hgb (12.0-16.0) g/dl Hct (34.1-44.9) % MCV (80.0-100.0) fL MCH (25.0-34.0) pg MCHC (32.0-36.0) g/dL RDW Std Deviation (36.4-46.3) fL RDW Coeff of Myesha (11.5-14.5) % Plt Count (130-400) K/uL MPV (9.4-12.3) fL Immature Gran % (Auto) % Neut % (Auto) % Lymph % (Auto) % [facility] % (Auto) % Eos % (Auto) % Baso % (Auto) % Neut # (Auto) (1.4-6.5) K/uL Lymph # (Auto) (1.2-3.4) K/uL [facility] # (Auto) (0.24-0.82) K/uL Eos # (Auto) (0-0.50) K/uL Baso # (Auto) (0-0.2) K/uL Immature Gran # (Auto) (0.00-0.02) K/uL Sodium (136-145) mmol/L Potassium (3.5-5.1) mmol/L Chloride (98-107) mmol/L Carbon Dioxide (21-32) mmol/L Anion Gap (3-11) BUN (6-23) mg/dl Creatinine (0.6-1.2) mg/dl Est Cr Clr Drug Dosing ml/min Est GFR ( Amer) ml/min Est GFR (Non-Af Amer) ml/min BUN/Creatinine Ratio (10-20) Glucose (70-99(Fasting)) mg/dl Calcium (8.5-10.1) mg/dl Total Bilirubin (0.2-1.0) mg/dl AST (13-39) U/L ALT (7-52) U/L Alkaline Phosphatase (34-104) U/L Total Protein (6.0-8.3) gm/dl Albumin (3.4-5.0) gm/dl Globulin (2.5-4.0) gm/dl Albumin/Globulin Ratio (0.9-2) Lipase (11-82) U/L Urine Color Urine Appearance (Clear) Urine pH (4.5-7.5) Ur Specific [place] (1.000-1.030) Urine Protein (Negative) Urine Glucose (UA) (Negative) Urine Ketones (Negative) Urine Blood (Negative) Urine Nitrite (Negative) Urine Bilirubin (Negative) Urine Urobilinogen (Negative) Ur Leukocyte Esterase (Negative) Urine WBC (Auto) (0-5) /hpf Urine RBC (Auto) (0-4) /hpf U Hyaline Cast (Auto) (0-5) /lpf U Epithel Cells (Auto) (0-5) /lpf Urine Bacteria (Auto) (Negative) SARS-CoV-2, RNA, NAAT NEGATIVE (NEGATIVE) Imaging Data Radiologist's Impression: Abdomen/Pelvis CT 04/13/22 20:[address] WITH IV CONTRAST CT DOSE: 833.32 mGy.cm HISTORY: Acute abdominal pain diffuse abd pain TECHNIQUE: Multiaxial CT images of the abdomen and pelvis were performed following the IV administration of 85 cc of Optiray, A dose lowering technique was utilized adhering to the principles of ALARA. COMPARISON STUDY: MRI abdomen 06/03/2020, CT abdomen pelvis 06/02/2020 FINDINGS: Subsegmental left basilar predominant opacities favor atelectasis. No pneumatosis or pneumoperitoneum. Unremarkable spleen with a few subcentimeter calcifications. The adrenal glands are unremarkable. Cholecystectomy. Unremarkable liver. Interstitial and peripancreatic edema. Mild high-grade gastric the without associated pancreatic ductal dilation or mass. No acute peripancreatic fluid collection. There is homogeneous enhancement of the pancreas. Unremarkable kidneys. Pelvic structures are suboptimally visualized secondary to streak artifact from hip arthroplasties. Atherosclerosis of the aorta. No lymphadenopathy. No bowel obstruction or bowel wall thickening. Mild to moderate colonic fecal retention. The appendix is not definitively seen. No CT evidence of acute appendicitis. Unremarkable soft tissues. No acute fracture. IMPRESSION: 1. Findings compatible with mild acute pancreatitis. No pancreatic mass or acute peripancreatic fluid collection identified. 2. No bowel obstruction or bowel wall thickening. 3. Cholecystectomy. 4. Additional findings as above. ACT 112: Negative or not required by law. The above report was generated using voice recognition software. It may contain grammatical, syntax or spelling errors. Electronically signed by: Eligio Rivera M.D. 04/13/2022 8:51 PM ECG Data Attestation: I personally reviewed and interpreted this ECG as follows: Additional Comments: Twelve-lead EKG: Per my interpretation shows normal sinus rhythm at a rate of 83. No ST elevation. No PVCs. Normal QTC MDM Narrative 66-year-old female presents with epigastric abdominal pain for the past 3 days. Her lipase is mildly elevated at 102. Urine did not show infection. CBC and chemistry panel was unremarkable. EKG shows normal sinus rhythm. Lipase is mildly elevated. CT scan of the abdomen pelvis does show some findings suggesting acute mild pancreatitis. The patient was hydrated with some IV fluids. She was given IV morphine for pain. She was given a GI cocktail. She will be seen by the hospitalist for further evaluation and care Impression & Plan Abdominal pain, epigastric, Acute pancreatitis Discharge Plan Visit Data Chief Complaint: Abdominal Pain Stated Complaint: STOMACH PAIN, PANCREATITIS BEFORE ED Provider: Freddie Concepcion Discharge Problem: Abdominal pain, epigastric, Acute pancreatitis Patient Disposition: Being Evaluated by Hospitalist Forms Stand Alone Forms: [facility], Virtual Emergency Department, Important Visit Information Prescriptions Prescriptions: No Action atorvastatin 20 mg tablet 20 mg PO HS Qty: 90 1RF citalopram 20 mg tablet 20 mg PO HS multivitamin Tablet 1 tab PO HS etodolac 500 mg tablet extended release 24 hr 500 mg PO QAM ibuprofen 200 mg Tablet 400 mg PO Q6H PRN (Reason: Pain) cholecalciferol (vitamin D3) [Vitamin D3] 25 mcg (1,000 unit) Tablet 0 mcg PO DAILY Referrals Referrals: Jared Collado DO [Primary Care Provider] -
[2022-04-13] MEDS ORDERED: OPTIRAY 350 100ml IV ONE (20:38)
--- NOTE | 2022-04-13 20:53 | CT Scan Report ---
ABDOMEN AND PELVIS CT WITH IV CONTRAST CT DOSE: 833.32 mGy.cm HISTORY: Acute abdominal pain diffuse abd pain TECHNIQUE: Multiaxial CT images of the abdomen and pelvis were performed following the IV administrat ion of 85 cc of Optiray, A dose lowering technique was utilized adhering to the principles of ALARA. COMPARISON STUDY: MRI abdomen 06/03/2020, CT abdomen pelvis 06/02/2020 FINDINGS: Subsegmental left basilar predominant opacities favor atelectasis. No pneumatosis or pneumo peritoneum. Unremarkable spleen with a few subcentimeter calcifications. The adrenal glands are unrem arkable. Cholecystectomy. Unremarkable liver. Interstitial and peripancreatic edema. Mild high-grade gastric the without associated pancreatic ductal dilation or mass. No acute peripancreatic fluid loki ection. There is homogeneous enhancement of the pancreas. Unremarkable kidneys. Pelvic structures are suboptimally visualized secondary to streak artifact from hip arthroplasties. Atherosclerosis of the aorta. No lymphadenopathy. No bowel obstruction or bowel wall thickening. Mild to moderate colonic fecal retention. The appendix is not definitively seen. No CT evidence of acute appendicitis. Unremarkable soft tissues. No acute fracture. IMPRESSION: 1. Findings compatible with mild acute pancreatitis. No pancreatic mass or acute peripancreatic fluid collection identified. 2. No bowel obstruction or bowel wall thickening. 3. Cholecystectomy. 4. Additional findings as above. ACT 112: Negative or not required by law. The above report was generated using voice recognition software. It may contain grammatical, syntax o r spelling errors. Electronically signed by: Eligio Rivera M.D. 04/13/2022 8:51 PM
[2022-04-13] MEDS ORDERED: SODIUM CHLORIDE 0.9% 1000ML 1,000 ML IV ONE (21:25)
[2022-04-14] MEDS: LACTATED RINGER'S 1,000 ML IV SCH ×4 (02:13→20:14)
[2022-04-14] MEDS: HYDROmorphone INJ 0.5 MG/0.5 ML SYR IV PRN ×2 (02:13→06:25)
[2022-04-14] MEDS: ONDANSETRON INJ 2 MG/ML 2 ML VIAL IV PRN ×2 (02:13→17:05)
--- NOTE | 2022-04-14 02:17 | History and Physical Report ---
DATE OF ADMISSION: 04/13/2022. CHIEF COMPLAINT: Abdominal pain. HISTORY OF PRESENT ILLNESS: This is a 66-year-old female with past medical history significant for hyperlipidemia, GERD, generalized anxiety disorder, obesity, who presents with abdominal pain starting last Tuesday, epigastric region, radiating into the back, 5-6/10 in severity, associated with nausea, no diarrhea or constipation. No blood in the stools or black stools. No hematuria. Normal bladder movements. No fevers, no chest pain, no shortness of breath. Sometimes, the pain goes in to the chest. No cough, no fevers, no headache, no blurred visions, no earache, no runny nose, no sore throat. Currently, resting comfortably and hemodynamically stable. The patient says she had pancreatitis about a couple of years ago. The patient also had COVID a couple of weeks ago and had Paxlovid. She does not have any COVID symptoms now. ALLERGIES: No known drug allergies. PAST MEDICAL HISTORY: As mentioned above. PAST SURGICAL HISTORY: Colonoscopy, dental surgery, EGD, EGD with endoscopic ultrasound, laparoscopic fulguration of oviducts, cholecystectomy, tonsillectomy, total hip replacement. MEDICATIONS: The patient is on atorvastatin 20 mg p.o. at bedtime, vitamin D 400 units p.o. daily, citalopram 20 mg p.o. at bedtime, etodolac 500 mg p.o. a.m., ibuprofen 400 mg p.o. q. 6 hours p.r.n., multivitamin 1 tablet p.o. at bedtime. FAMILY HISTORY: Significant for paternal grandfather had prostate cancer; father has heart disorder; mother has heart disorder. SOCIAL HISTORY: , no smoking, five to six christopher a week. No drug use. REVIEW OF SYSTEMS: As per HPI. Rest of review of systems is negative. PHYSICAL EXAMINATION: GENERAL: The patient is of moderate build, not in acute distress. VITAL SIGNS: Temperature 36.6, pulse 75, respiratory rate 18, blood pressure 143/92, oxygen 99% on room air. HEENT: Pupils equal, round and reactive to light. Oral mucosa moist. NECK: No JVD. No neck masses. CARDIOVASCULAR: S1 and S2 heard. Regular rate and rhythm. No murmur, no gallop. RESPIRATORY SYSTEM: Normal AP diameter. No accessory muscle use. No wheezing, no crackles. ABDOMEN: Soft, bowel sounds present. Mild epigastric tenderness present. No distention. No guarding. CENTRAL NERVOUS SYSTEM: Cranial nerves II-XII grossly intact, nonfocal. EXTREMITIES: No edema, no erythema. LABORATORY DATA: WBC 9.9, hemoglobin 13.4, hematocrit 40, platelets 282. Sodium 138, potassium 3.7, chloride 103, bicarbonate 27, BUN 13, creatinine 0.8, serum glucose 94, calcium 9.6, total bilirubin 0.4, AST 16, ALT 12, alkaline phosphatase 87, lipase 102. Urinalysis, trace leukocyte esterase. SARS-CoV-2 rapid test negative. IMAGING DATA: CT of abdomen and pelvis with IV contrast compatible with mild acute pancreatitis. No pancreatic mass or acute peripancreatic fluid collection identified. No bowel obstruction or bowel wall thickening or cholecystectomy. EKG: Normal sinus rhythm at a rate of 83, possible left atrial enlargement, no acute ST changes seen. ASSESSMENT AND PLAN: This 66-year-old female presents with abdominal pain and found to have mild pancreatitis. 1. Abdominal pain, mild pancreatitis, history of pancreatitis in the past. Will give aggressive fluids. We will have her n.p.o., IV fluids, IV antiemetics. Closely monitor in the medical floor. Consult GI in the a.m. The patient is also taking pain medication etodolac since last one year. In the last two days, she was taking ibuprofen as needed. Possible gastritis. Placed on IV Protonix. Await GI input. 2. Hyperlipidemia: On statin. 3. Generalized anxiety disorder: On citalopram. 4. Deep venous thrombosis prophylaxis: Heparin subcutaneously. DISPOSITION: Closely monitor in the medical floor. Expect to discharge home and follow up with family doctor. Job ID: [id number] [facility]US[facility]
[2022-04-14] MEDS: PANTOprazole 40 MG in SYRINGE 0 ML IV SCH ×3 (02:19→20:15)
[2022-04-14 06:30] LABS: Basophils # (auto) 0.03 K/uL (0-0.2); Basophils % (auto) 0.4 %; Eosinophils # (auto) 0.26 K/uL (0-0.50); Eosinophils % (auto) 3.8 %; Hematocrit (blood only) 33.6 % (34.1-44.9); Hemoglobin 11.3 g/dl (12.0-16.0); Immature Granulocytes # (auto) 0.02 K/uL (0.00-0.02); Immature Granulocytes % (auto) 0.3 %; Lymphocytes # (auto) 1.44 K/uL (1.2-3.4); Mean Corpuscular Hemoglobin 30.7 pg (25.0-34.0); Mean Corpuscular Hgb Conc 33.6 g/dL (32.0-36.0); Mean Corpuscular Volume 91.3 fL (80.0-100.0); Mean Platelet Volume 9.4 fL (9.4-12.3); Monocytes # (auto) 0.78 K/uL (0.24-0.82); Monocytes % (auto) 11.4 %; Neutrophils # (auto) 4.33 K/uL (1.4-6.5); Neutrophils % (auto) 63.1 %; Platelet Count 233 K/uL (130-400); RDW Coefficient of Variation 12.3 % (11.5-14.5); RDW Standard Deviation 41.5 fL (36.4-46.3); Red Blood Count 3.68 M/uL (3.93-5.22); White Blood Count 6.86 K/ul (4.8-10.8)
[2022-04-14 07:01] LABS: BUN Creatinine Ratio 13.5 (10-20); Calcium 8.5 mg/dl (8.5-10.1); Est GFR (African American) 96.5 ml/min; Est GFR (Non-African American) 83.2 ml/min; Magnesium 1.9 mg/dl (1.7-2.4)
--- NOTE | 2022-04-14 08:31 | Electrocardiogram Report ---
Test Reason : Blood Pressure : / mmHG Vent. Rate : 083 BPM Atrial Rate : 083 BPM P-R Int : 156 ms QRS Dur : 082 ms QT Int : 338 ms P-R-T Axes : 060 020 071 degrees QTc Int : 397 ms Normal sinus rhythm Incomplete right bundle branch block Left atrial enlargement Borderline ECG When compared with ECG of 03-JUN-2020 06:35, Incomplete right bundle branch block now present Otherwise no significant change Confirmed by Matt Wilson ([id number]) on 04/14/2022 8:30:48 AM Referred By: REFERRED SELF Confirmed By:Matt Wilson
--- NOTE | 2022-04-14 08:40 | Gastrointestinal Consultation ---
Date of Consultation April 14, 2022 Assessment & Plan (1) Abdominal pain, epigastric: 66 year old female with history of ?pancreatitis in 2020, negative egd/eus post pancreatitis who presents with abd pain x days imaging w/ mild acute pancreatitis, lipase 100 NPO EGD No NSAIDs IV PPI BID Thank you for allowing us to participate in the care of this patient. Please call with any acute changes, questions or concerns. Please see addendum below with additional recommendation from my supervising physician. Supervising Physician Co-Signing Physician Notes I saw and evaluated the patient. We were consulted for evaluation of abdominal pain and inflammatory changes to the duodenum. Of note the patient was told that she may have pancreatitis in the recent past and underwent outpatient evaluation with endoscopic ultrasound which showed no specific changes. The patient did present today with a lipase of 102 which is just above the normal range. Of note the patient is on a nonsteroidal several times per day. Physical examination no obvious distress No scleral icterus mild epigastric tenderness Impression: Patient with a history of epigastric discomfort, we will proceed with a repeat upper endoscopy to evaluate for evidence of peptic ulcer disease given the ongoing use of nonsteroidals. Other possible causes of the patient's symptoms include use of her SSRI. History of Present Illness Reason for Consultation: abd pain Requesting Physician: Bola Attending Physician: Dee Plaza MD History of Present Illness 66 year old female with history of dyslipidemia, GERD, anxiety, obesity who presents for evaluation of abd pain - pt was seen and evaluated, chart reviewed. Notes since her last admission she had OP EGD/EUS which was largely unremarkable per patient. She notes that her symptoms returned about 2-3 days ago. Abd pain, nausea, vomiting. Some GERD. No regurgitation. She had COVID a couple of weeks ago and had Paxlovid. She does not have any COVID symptoms now. EGD/EUS: unable to sign in but negative per patient CTAP: Findings compatible with mild acute pancreatitis. No pancreatic mass or acute peripancreatic fluid collection identified.. No bowel obstruction or bowel wall thickening. Cholecystectomy. Allergies Allergy/AdvReac Type Severity Reaction Status Date / Time No Known Allergies Allergy Mild Verified 04/14/22 09:34 Home Medications Medication Instructions Recorded Confirmed Type multivitamin 1 tab PO HS 03/30/18 04/13/22 History citalopram 20 mg tablet 20 mg PO HS 12/19/19 04/13/22 History atorvastatin 20 mg tablet 20 mg PO HS #90 tabs 02/25/20 04/13/22 Rx cholecalciferol (vitamin D3) 25 0 mcg PO DAILY 04/13/22 04/13/22 History mcg (1,000 unit) tablet (Vitamin D3) etodolac 500 mg tablet,extended 500 mg PO QAM 04/13/22 04/13/22 History release 24 hr ibuprofen 200 mg tablet 400 mg PO Q6H PRN Pain 04/13/22 04/13/22 History Patient History Medical History (Updated 04/13/22 @ 22:55 by Freddie Concepcion DO) Anxiety Hyperlipidemia Osteoarthritis Surgical History History of bilateral tubal ligation History of cholecystectomy History of colonoscopy History of esophagogastroduodenoscopy (EGD) History of tonsillectomy and adenoidectomy History of tooth extraction History of total replacement of both hip joints History of wisdom tooth extraction Family History Father , age 44 of [place] Diabetes Cardiac disorder Family/Other No problems noted. Mother , age in 70s of an [place] Diabetes Cardiac disorder Hypertension Other No family history of adverse response to anesthesia Social History Smoking Status: Never smoker Second Hand Exposure: No; Do You Dip or Chew Tobacco: No; Tobacco Cessation Education Requested by Patient: No Hx Alcohol Use: Yes Alcohol type: beer and wine Alcohol Intake Frequency: 2-4 x/Month Hx Substance Use: No Preferred Language: Icelandic Communication Ability: Effective Register Clerk Required: No Beliefs That Will Affect Care: None marital status: Current Living Situation: Spouse Other Information That Helps Us Care for You: No Feels Safe at Home: Yes Safety Concerns: Feels Safe At This Time Seatbelt Use: always Assistive Devices: Hospital Bed Review of Systems Review of Systems: All systems reviewed & are unremarkable except as noted in HPI & below Physical Exam Constitutional: well developed and well nourished Neck: trachea midline, no thyromegaly Respiratory: normal respiratory effort Cardiovascular: Rate/Rhythm: regular rate and regular rhythm Gastrointestinal (Abdomen): normal bowel sounds, soft, nontender, no hepatosplenomegaly Skin: no rashes, warm and dry Results & Data ([facility]) Vital Signs (Past 12 Hours) Vital Signs Temp Pulse Pulse Resp BP Pulse Ox O2 Del Method 04/14/22 07:16 36.9 C 67 16 92/56 L 96 Room Air 04/14/22 01:15 37.4 C 73 18 148/81 H 92 Room Air 04/14/22 01:31 37.4 C 73 18 148/81 H 92 Room Air 04/13/22 22:24 75 18 143/92 H 99 Room Air 04/13/22 21:31 73 19 144/88 H 96 Room Air Laboratory Results 04/14/22 04/14/22 04/13/22 Range/Units 06:17 06:17 21:45 WBC 6.86 (4.8-10.8) K/ul RBC 3.68 L (3.93-5.22) M/uL Hgb 11.3 L (12.0-16.0) g/dl Hct 33.6 L (34.1-44.9) % MCV 91.3 (80.0-100.0) fL MCH 30.7 (25.0-34.0) pg MCHC 33.6 (32.0-36.0) g/dL RDW Std Deviation 41.5 (36.4-46.3) fL RDW Coeff of Myesha 12.3 (11.5-14.5) % Plt Count 233 (130-400) K/uL MPV 9.4 (9.4-12.3) fL Immature Gran % (Auto) 0.3 % Neut % (Auto) 63.1 % Lymph % (Auto) 21.0 % Daw[place] % (Auto) 11.4 % Eos % (Auto) 3.8 % Baso % (Auto) 0.4 % Neut # (Auto) 4.33 (1.4-6.5) K/uL Lymph # (Auto) 1.44 (1.2-3.4) K/uL [place] # (Auto) 0.78 (0.24-0.82) K/uL Eos # (Auto) 0.26 (0-0.50) K/uL Baso # (Auto) 0.03 (0-0.2) K/uL Immature Gran # (Auto) 0.02 (0.00-0.02) K/uL Sodium 139 (136-145) mmol/L Potassium 4.0 (3.5-5.1) mmol/L Chloride 106 (98-107) mmol/L Carbon Dioxide 28 (21-32) mmol/L Anion Gap 5 (3-11) BUN 10 (6-23) mg/dl Creatinine 0.74 (0.6-1.2) mg/dl Est Cr Clr Drug Dosing 78.0 ml/min Est GFR ( Amer) 96.5 ml/min Est GFR (Non-Af Amer) 83.2 ml/min BUN/Creatinine Ratio 13.5 (10-20) Glucose 93 (70-99(Fasting)) mg/dl Calcium 8.5 (8.5-10.1) mg/dl Magnesium 1.9 (1.7-2.4) mg/dl Total Bilirubin (0.2-1.0) mg/dl AST (13-39) U/L ALT (7-52) U/L Alkaline Phosphatase (34-104) U/L Total Protein (6.0-8.3) gm/dl Albumin (3.4-5.0) gm/dl Globulin (2.5-4.0) gm/dl Albumin/Globulin Ratio (0.9-2) Lipase (11-82) U/L Urine Color Urine Appearance (Clear) Urine pH (4.5-7.5) Ur Specific [place] (1.000-1.030) Urine Protein (Negative) Urine Glucose (UA) (Negative) Urine Ketones (Negative) Urine Blood (Negative) Urine Nitrite (Negative) Urine Bilirubin (Negative) Urine Urobilinogen (Negative) Ur Leukocyte Esterase (Negative) Urine WBC (Auto) (0-5) /hpf Urine RBC (Auto) (0-4) /hpf U Hyaline Cast (Auto) (0-5) /lpf U Epithel Cells (Auto) (0-5) /lpf Urine Bacteria (Auto) (Negative) SARS-CoV-2, RNA, NAAT NEGATIVE (NEGATIVE) 04/13/22 04/13/22 04/13/22 Range/Units 19:38 18:38 18:38 WBC 9.98 (4.8-10.8) K/ul RBC 4.37 (3.93-5.22) M/uL Hgb 13.4 (12.0-16.0) g/dl Hct 40.0 (34.1-44.9) % MCV 91.5 (80.0-100.0) fL MCH 30.7 (25.0-34.0) pg MCHC 33.5 (32.0-36.0) g/dL RDW Std Deviation 41.5 (36.4-46.3) fL RDW Coeff of Myesha 12.3 (11.5-14.5) % Plt Count 282 (130-400) K/uL MPV 9.5 (9.4-12.3) fL Immature Gran % (Auto) 0.4 % Neut % (Auto) 70.7 % Lymph % (Auto) 17.4 % Dawes % (Auto) 7.9 % Eos % (Auto) 3.1 % Baso % (Auto) 0.5 % Neut # (Auto) 7.05 H (1.4-6.5) K/uL Lymph # (Auto) 1.74 (1.2-3.4) K/uL Dawes # (Auto) 0.79 (0.24-0.82) K/uL Eos # (Auto) 0.31 (0-0.50) K/uL Baso # (Auto) 0.05 (0-0.2) K/uL Immature Gran # (Auto) 0.04 H (0.00-0.02) K/uL Sodium 138 (136-145) mmol/L Potassium 3.7 (3.5-5.1) mmol/L Chloride 103 (98-107) mmol/L Carbon Dioxide 27 (21-32) mmol/L Anion Gap 8 (3-11) BUN 13 (6-23) mg/dl Creatinine 0.82 (0.6-1.2) mg/dl Est Cr Clr Drug Dosing 69.9 ml/min Est GFR ( Amer) 85.2 ml/min Est GFR (Non-Af Amer) 73.5 ml/min BUN/Creatinine Ratio 15.9 (10-20) Glucose 94 (70-99(Fasting)) mg/dl Calcium 9.6 (8.5-10.1) mg/dl Magnesium (1.7-2.4) mg/dl Total Bilirubin 0.4 (0.2-1.0) mg/dl AST 16 (13-39) U/L ALT 12 (7-52) U/L Alkaline Phosphatase 87 (34-104) U/L Total Protein 7.0 (6.0-8.3) gm/dl Albumin 4.3 (3.4-5.0) gm/dl Globulin 2.7 (2.5-4.0) gm/dl Albumin/Globulin Ratio 1.6 (0.9-2) Lipase 102 H (11-82) U/L Urine Color Yellow Urine Appearance Clear (Clear) Urine pH 5.0 (4.5-7.5) Ur Specific [place] 1.011 (1.000-1.030) Urine Protein Negative (Negative) Urine Glucose (UA) Negative (Negative) Urine Ketones Negative (Negative) Urine Blood Trace H (Negative) Urine Nitrite Negative (Negative) Urine Bilirubin Negative (Negative) Urine Urobilinogen Negative (Negative) Ur Leukocyte Esterase Trace H (Negative) Urine WBC (Auto) 1-5 (0-5) /hpf Urine RBC (Auto) 0-4 (0-4) /hpf U Hyaline Cast (Auto) 0 (0-5) /lpf U Epithel Cells (Auto) 10-20 H (0-5) /lpf Urine Bacteria (Auto) Negative (Negative) SARS-CoV-2, RNA, NAAT (NEGATIVE)
[2022-04-14] MEDS: CHOLECALCIFEROL 400 UNITS 10 MCG TAB PO SCH (08:44)
[2022-04-14] MEDS: HEPARIN SOD 5,000 UNIT/0.5 ML VIAL SQ SCH ×2 (08:45→20:16)
--- NOTE | 2022-04-14 09:49 | Anesthesiology Consultation ---
Date of Service April 14, 2022 Assessment & Plan Chart Review Chart Review: Acceptable Risk for Surgery Consults Requested none History Surgery Operation Date: 04/14/22 16:15 Proposed Procedures p Esophagogastroduodenoscopy Dr Robbie Avalos, Height/Weight Height: 5 ft 4 in Weight: 87.8 kg Allergies Allergy/AdvReac Type Severity Reaction Status Date / Time No Known Allergies Allergy Mild Verified 04/14/22 09:34 Medications Home Medications Medication Instructions Recorded Confirmed Last Taken multivitamin 1 tab PO HS 03/30/18 04/13/22 12/24/19 21:00 citalopram 20 mg tablet 20 mg PO HS 12/19/19 04/13/22 12/25/19 21:00 atorvastatin 20 mg tablet 20 mg PO HS #90 tabs 02/25/20 04/13/22 Unknown cholecalciferol (vitamin D3) 25 0 mcg PO DAILY 04/13/22 04/13/22 Unknown mcg (1,000 unit) tablet (Vitamin D3) etodolac 500 mg tablet,extended 500 mg PO QAM 04/13/22 04/13/22 Unknown release 24 hr ibuprofen 200 mg tablet 400 mg PO Q6H PRN Pain 04/13/22 04/13/22 Unknown Active Medications Generic Name Dose Route Start Last Admin Trade Name Freq PRN Reason Stop Dose Admin Heparin Sodium (Porcine) 5,000 units 04/14/22 09:00 04/14/22 08:45 Heparin Sod 5,000 Unit/0.5 Ml Vial SQ 05/14/22 08:59 5,000 units Q12 SHI Administration Hydromorphone HCl 0.5 mg 04/14/22 01:28 04/14/22 06:25 Hydromorphone Inj 0.5 Mg/0.5 Ml Syr IV 04/28/22 01:27 0.5 mg Q3H PRN Administration Pain Lactated Ringer's 1,000 mls @ 200 mls/hr 04/14/22 01:28 04/14/22 06:21 Lr IV 05/14/22 01:27 200 mls/hr .Q5H SHI Administration Pantoprazole Sodium 40 mg/ 10 mls @ 5 mls/min 04/14/22 01:28 04/14/22 08:42 Syringe IV 05/14/22 01:27 5 mls/min BID SHI Administration Ondansetron HCl 4 mg 04/14/22 01:28 04/14/22 02:13 Ondansetron Inj 2 Mg/Ml 2 Ml Vial IV 05/14/22 01:27 4 mg Q6H PRN Administration Nausea Vitamin D 400 units 04/14/22 09:00 04/14/22 08:44 Cholecalciferol 400 Units 10 Mcg Tab PO 05/14/22 08:59 Not Given DAILY SHI NPO Date Last Intake of Fluids: 04/14/22 Time Last Intake of Fluids: 03:00 Date Last Intake of Solids: 04/13/22 Time Last Intake of Solids: 15:00 Past Medical History Medical History (Updated 04/13/22 @ 22:55 by Freddie Concepcion DO) Anxiety Hyperlipidemia Osteoarthritis Past Family History Family History Father , age 44 of [place] Diabetes Cardiac disorder Family/Other No problems noted. Mother , age in 70s of an [place] Diabetes Cardiac disorder Hypertension Other No family history of adverse response to anesthesia Past Surgical History Surgical History History of bilateral tubal ligation History of cholecystectomy History of colonoscopy History of esophagogastroduodenoscopy (EGD) History of tonsillectomy and adenoidectomy History of tooth extraction History of total replacement of both hip joints History of wisdom tooth extraction Social History Smoking Status: Never smoker Do You Dip or Chew Tobacco: No Hx Alcohol Use: Yes Alcohol type: beer and wine alcohol intake frequency: a few times a week Alcohol Intake Frequency Comment: Patient did not indicate which type of alcohol she consumes. Hx Substance Use: No substance use type: does not use Physical Exam Vital Signs Last Vital Signs Temp 36.9 C 04/14/22 07:16 Pulse 67 04/14/22 07:16 Resp 16 04/14/22 07:16 BP 92/56 L 04/14/22 07:16 Pulse Ox 96 04/14/22 07:16 O2 Del Method 04/14/22 07:16 Testing Laboratory Results 04/14/22 06:17 04/14/22 06:17 Urine Color Yellow 04/13/22 19:38 Urine Appearance Clear (Clear) 04/13/22 19:38 Urine pH 5.0 (4.5-7.5) 04/13/22 19:38 Ur Specific [place] 1.011 (1.000-1.030) 04/13/22 19:38 Urine Protein Negative (Negative) 04/13/22 19:38 Urine Glucose (UA) Negative (Negative) 04/13/22 19:38 Urine Ketones Negative (Negative) 04/13/22 19:38 Urine Nitrite Negative (Negative) 04/13/22 19:38 Ur Leukocyte Esterase Trace (Negative) H 04/13/22 19:38 Urine WBC (Auto) 1-5 /hpf (0-5) 04/13/22 19:38 Urine RBC (Auto) 0-4 /hpf (0-4) 04/13/22 19:38 U Hyaline Cast (Auto) 0 /lpf (0-5) 04/13/22 19:38 U Epithel Cells (Auto) 10-20 /lpf (0-5) H 04/13/22 19:38 Urine Bacteria (Auto) Negative (Negative) 04/13/22 19:38
[2022-04-14] MEDS ORDERED: ONDANSETRON INJ 2 MG/ML 2 ML VIAL ONE (10:18)
[2022-04-14] MEDS ORDERED: PROPOFOL IV EMULSION 10 MG/ML 20 ML VIAL IV ONE (10:18)
[2022-04-14] MEDS ORDERED: LIDOCAINE 2% MPF LOCAL 5 ML VIAL INFIL ONE (10:18)
[2022-04-14] MEDS ORDERED: MIDAZOLAM HCL 1 MG/ML 2ML VIAL ONE (10:18)
--- NOTE | 2022-04-14 10:39 | Communication Note ---
Date of Service: April 14, 2022 The patient underwent upper endoscopy this afternoon for evaluation of her abdominal discomfort. The patient was found to have mild gastritis which is likely related to medication such as citalopram or nonsteroidal. Recommendations advance diet as tolerated Consider a trial of Carafate 1 g 4 times daily for 6 weeks please call with any questions or concerns GI to sign off
--- NOTE | 2022-04-14 10:42 | GI REPORT ---
Patient Name: Eugenie Dee Procedure Date: 04/14/2022 10:22 AM Date of : 1955 Admit Type: Inpatient Age: 66 Gender: Female Attending MD: Jessica Avalos DO, Procedure: Upper GI endoscopy Providers: Jessica Avalos DO Referring MD: YUMIKO VALDEZ Indications: Epigastric abdominal pain Medicines: Monitored Anesthesia Care Complications: No immediate complications. Estimated blood loss: Minimal. Estimated Blood Loss: Estimated blood loss was minimal. Procedure: Pre-Anesthesia Assessment: - Prior to the procedure, a History and Physical was performed, and patient medications, allergies and sensitivities were reviewed. The patient's tolerance of previous anesthesia was reviewed. - The risks and benefits of the procedure and the sedation options and risks were discussed with the patient. All questions were answered and informed consent was obtained. - Patient identification and proposed procedure were verified prior to the procedure by the physician, the nurse and the production cook. The procedure was verified in the procedure room. - Pre-procedure physical examination revealed no contraindications to sedation. - ASA Grade Assessment: II - A patient with mild systemic disease. - After reviewing the risks and benefits, the patient was deemed in satisfactory condition to undergo the procedure. - The anesthesia plan was to use monitored anesthesia care (MAC). - Immediately prior to administration of medications, the patient was re-assessed for adequacy to receive sedatives. - The heart rate, respiratory rate, oxygen saturations, blood pressure, adequacy of pulmonary ventilation, and response to care were monitored throughout the procedure. - The physical status of the patient was re-assessed after the procedure. After obtaining informed consent, the endoscope was passed under direct vision. Throughout the procedure, the patient's blood pressure, pulse, and oxygen saturations were monitored continuously. The Endoscope was introduced through the mouth, and advanced to the third part of duodenum. The upper GI endoscopy was accomplished without difficulty. The patient tolerated the procedure well. Findings: The examined esophagus was normal. The Z-line was regular and was found 35 cm from the incisors. Diffuse mild inflammation characterized by erythema and granularity was found in the entire examined stomach. Biopsies were taken with a cold forceps for histology. The pathology specimen was placed into Bottle B. Estimated blood loss was minimal. The examined duodenum was normal. Biopsies were taken with a cold forceps for histology. The pathology specimen was placed into Bottle A. Estimated blood loss was minimal. Impression: - Normal esophagus. - Z-line regular, 35 cm from the incisors. - Gastritis. Biopsied. - Normal examined duodenum. Biopsied. Recommendation: - The patient will be observed post-procedure, until all discharge criteria are met. - Advance diet as tolerated today. - Await pathology results. - Try sucralfate tablets 1 gram PO QID for 6 weeks. -Symptoms could be related to use of nonsteroidals or perhaps her SSRI. Jessica Avalos D.O. Jessica Avalos, 04/14/2022 10:42:33 AM This report has been signed electronically. Note Initiated On: 04/14/2022 10:22 AM Number of Addenda: 0 I attest to the content of the Intraoperative Record and orders documented therein, exceptions below {[id number]}
--- NOTE | 2022-04-14 10:53 | Anesthesiology Progress Note ---
Date of Service April 14, 2022 Anesthesia Post Procedure Vital Signs Vital Signs: Temp Pulse Pulse Pulse Resp BP BP 04/14/22 10:38 68 16 109/53 L 04/14/22 07:16 36.9 C 67 16 92/56 L 04/14/22 01:15 37.4 C 73 18 148/81 H 04/14/22 01:31 37.4 C 73 18 148/81 H 04/13/22 22:24 75 18 143/92 H 04/13/22 21:31 73 19 144/88 H 04/13/22 19:35 75 18 161/89 H 04/13/22 17:56 36.6 C 101 H 18 117/79 Pulse Ox O2 Del Method 04/14/22 10:38 100 Room Air 04/14/22 07:16 96 Room Air 04/14/22 01:15 92 Room Air 04/14/22 01:31 92 Room Air 04/13/22 22:24 99 Room Air 04/13/22 21:31 96 Room Air 04/13/22 19:35 99 Room Air 04/13/22 17:56 96 Room Air Pain Intensity Abdomen: Pain Intensity: 4 Transfer of Care Handoff Completed per policy Notes Mental Status: alert / awake / arousable and participated in evaluation Patient Amnestic to Procedure: Yes Nausea / Vomiting: adequately controlled Pain: adequately controlled Airway Patency, RR, SpO2: stable & adequate BP & HR: stable & adequate Hydration State: stable & adequate Anesthetic Complications: no major complications apparent
[2022-04-14] MEDS: ACETAMINOPHEN 325 MG TAB PO PRN ×2 (11:25→23:57)
--- NOTE | 2022-04-14 17:24 | Hospitalist Progress Note ---
Date of Service April 14, 2022 Assessment & Plan (1) Abdominal pain, epigastric: Plan: Present on admission with worsening abdominal pain CT abd/pelvis showed findings compatible with mild acute pancreatitis. No pancreatic mass or acute peripancreatic fluid collection identified. Lipase 102 on admission today gastro on board S/P EGD showedmild gastritis which is likely related to medication such as citalopram or nonsteroidal as per GI GI recommended trial of Carafate 1 g 4 times daily for 6 weeks Started on Full liquid diet, will advance as tolerated Will decrease IVF and continue pain control and antiemetic med Continue monitor Hyperlipidemia Continue statin. Generalized anxiety disorder: On citalopram Deep venous thrombosis prophylaxis: Heparin subcutaneously. Code status full code Disposition Plan to discharge home tomorrow Admission and Anticipated Discharge Date Admission Date: April 13, 2022 Subjective Pt was seen and examined for follow up of abdominal pain Lying in bed with no acute distress Pt said that abdominal pain improved She said that nausea improves She would like to try some food Denies any chest pain, palpitation, dizziness and SOB Review of Systems Review of Systems: All systems reviewed & are unremarkable except as noted in Subjective Physical Exam Physical Exam: General- No acute distress Head- atraumatic Eyes- PERRL, EOMI, ENT- oropharynx clear Neck- supple, no JVD Lungs- clear to auscultation Heart- regular rhythm; no murmur Abdomen- normal bowel sounds, soft, +mild tenderness with deep palpation Extremities- no calf tenderness Neuro- alert, oriented x 3; PERRL, EOMI; no facial palsy; no dysarthria Skin- warm & dry Results & Data Results & Data ([facility]) Vital Signs (Past 12 Hours) Vital Signs Temp Pulse Resp BP Pulse Ox O2 Del Method 04/14/22 15:36 36.8 C 70 16 127/79 93 Room Air 04/14/22 11:18 37.2 C 72 16 114/70 96 Room Air 04/14/22 11:07 77 16 116/71 97 Room Air 04/14/22 10:53 79 16 118/75 97 Room Air 04/14/22 10:38 68 16 109/53 L 100 Room Air 04/14/22 07:16 36.9 C 67 16 92/56 L 96 Room Air
[2022-04-14] MEDS: SUCRALFATE 1 GM/10 ML UDC PO SCH (20:15)
[2022-04-14] MEDS: CITALOPRAM 20 MG TAB PO SCH (20:16)
[2022-04-14] MEDS: ATORVASTATIN 20 MG TAB PO SCH (20:16)
[2022-04-14] MEDS: MULTIVITAMIN TAB PO SCH (20:16)
[2022-04-15] MEDS: ACETAMINOPHEN 325 MG TAB PO PRN (08:24)
[2022-04-15] MEDS: SUCRALFATE 1 GM/10 ML UDC PO SCH ×4 (08:25→21:52)
[2022-04-15] MEDS: CHOLECALCIFEROL 400 UNITS 10 MCG TAB PO SCH (08:26)
[2022-04-15] MEDS: PANTOprazole 40 MG in SYRINGE 0 ML IV SCH (08:26)
[2022-04-15] MEDS: HEPARIN SOD 5,000 UNIT/0.5 ML VIAL SQ SCH ×2 (08:26→21:53)
--- NOTE | 2022-04-15 15:28 | Hospitalist Progress Note ---
Date of Service April 15, 2022 Assessment & Plan (1) Abdominal pain, epigastric: Plan: Present on admission with worsening abdominal pain CT abd/pelvis showed findings compatible with mild acute pancreatitis. No pancreatic mass or acute peripancreatic fluid collection identified. Lipase 102 on admission today gastro on board S/P EGD showedmild gastritis which is likely related to medication such as citalopram or nonsteroidal as per GI GI recommended trial of Carafate 1 g 4 times daily for 6 weeks Diet advance as tolerated Continue pain control and antiemetic medication IVF discontinued Continue monitor Hyperlipidemia Continue statin. Generalized anxiety disorder: On citalopram Deep venous thrombosis prophylaxis: Heparin subcutaneously. Code status full code Disposition possible discharge home today if able to find a ride due to the weather Admission and Anticipated Discharge Date Admission Date: April 13, 2022 Subjective Pt was seen and examined for follow up of abdominal pain Lying in bed with no acute distress Pt said that she slept well last night She said last night she had diarrhea and this morning tolerated full liquid diet Denies any chest pain, palpitation, dizziness and SOB Review of Systems Review of Systems: All systems reviewed & are unremarkable except as noted in Subjective Physical Exam Physical Exam: General- No acute distress Head- atraumatic Eyes- PERRL, EOMI, ENT- oropharynx clear Neck- supple, no JVD Lungs- clear to auscultation Heart- regular rhythm; no murmur Abdomen- normal bowel sounds, soft, +mild tenderness with deep palpation Extremities- no calf tenderness Neuro- alert, oriented x 3; PERRL, EOMI; no facial palsy; no dysarthria Skin- warm & dry Results & Data Results & Data ([facility]) Vital Signs (Past 12 Hours) Vital Signs Temp Pulse Resp BP Pulse Ox O2 Del Method 04/15/22 07:51 37.0 C 69 16 101/61 95 Room Air
[2022-04-15] MEDS: CITALOPRAM 20 MG TAB PO SCH (21:53)
[2022-04-15] MEDS: MULTIVITAMIN TAB PO SCH (21:53)
[2022-04-15] MEDS: ATORVASTATIN 20 MG TAB PO SCH (21:53)
[2022-04-16] MEDS: CHOLECALCIFEROL 400 UNITS 10 MCG TAB PO SCH (08:50)
[2022-04-16] MEDS: SUCRALFATE 1 GM/10 ML UDC PO SCH (08:50)
[2022-04-16] MEDS: HEPARIN SOD 5,000 UNIT/0.5 ML VIAL SQ SCH (08:51)
[2022-04-16] MEDS ORDERED: PANTOprazole 40 MG TAB PO SCH (09:00)
--- NOTE | 2022-04-16 10:15 | Discharge Summary ---
Date of Service April 16, 2022 Admission HPI Per Admitting Provider CHIEF COMPLAINT: Abdominal pain. HISTORY OF PRESENT ILLNESS: This is a 66-year-old female with past medical history significant for hyperlipidemia, GERD, generalized anxiety disorder, obesity, who presents with abdominal pain starting last Tuesday, epigastric region, radiating into the back, 5-6/10 in severity, associated with nausea, no diarrhea or constipation. No blood in the stools or black stools. No hemat uria. Normal bladder movements. No fevers, no chest pain, no shortness of breath. Sometimes, the pain goes in to the chest. No cough, no fevers, no headache, no blurred visions, no earache, no runny nose, no sore throat. Currently, resting comfortably and hemodynamically stable. The patient says she had pancreatitis about a couple of years ago. The patient also had COVID a couple of weeks ago and had Paxlovid. She does not have any COVID symptoms now. Admission Exam Per Admitting Provider GENERAL: The patient is of moderate build, not in acute distress. VITAL SIGNS: Temperature 36.6, pulse 75, respiratory rate 18, blood pressure 143/92, oxygen 99% on room air. HEENT: Pupils equal, round and reactive to light. Oral mucosa moist. NECK: No JVD. No neck masses. CARDIOVASCULAR: S1 and S2 heard. Regular rate and rhythm. No murmur, no gallop. RESPIRATORY SYSTEM: Normal AP diameter. No accessory muscle use. No wheezing, no crackles. ABDOMEN: Soft, bowel sounds present. Mild epigastric tenderness present. No distention. No guarding. CENTRAL NERVOUS SYSTEM: Cranial nerves II-XII grossly intact, nonfocal. EXTREMITIES: No edema, no erythema. Principal Diagnosis General- No acute distress Head- atraumatic Eyes- PERRL, EOMI, ENT- oropharynx clear Neck- supple, no JVD Lungs- clear to auscultation Heart- regular rhythm; no murmur Abdomen- normal bowel sounds, soft, +mild tenderness with deep palpation Extremities- no calf tenderness Neuro- alert, oriented x 3; PERRL, EOMI; no facial palsy; no dysarthria Skin- warm & dry Discharge Exam General- No acute distress Head- atraumatic Eyes- PERRL, EOMI, ENT- oropharynx clear Neck- supple, no JVD Lungs- clear to auscultation Heart- regular rhythm; no murmur Abdomen- normal bowel sounds, soft, +mild tenderness with deep palpation Extremities- no calf tenderness Neuro- alert, oriented x 3; PERRL, EOMI; no facial palsy; no dysarthria Skin- warm & dry Discharge Data Allergies Allergy/AdvReac Type Severity Reaction Status Date / Time No Known Allergies Allergy Mild Verified 04/14/22 09:34 Consultations 04/13/22 22:05 ED Decision to Admit Stat 04/14/22 08:00 Consult Gastroenterology Routine Procedures Performed Operation Date: 04/14/22 16:15 Actual Procedures p EGD Biopsy Cytology - Jessica Avalos DO Ordered Studies 04/13/22 20:07 CT abd pelvis IV con only Stat Laboratory Results WBC 6.86 K/ul (4.8-10.8) 04/14/22 06:17 RBC 3.68 M/uL (3.93-5.22) L 04/14/22 06:17 Hgb 11.3 g/dl (12.0-16.0) L 04/14/22 06:17 Hct 33.6 % (34.1-44.9) L 04/14/22 06:17 MCV 91.3 fL (80.0-100.0) 04/14/22 06:17 MCH 30.7 pg (25.0-34.0) 04/14/22 06:17 MCHC 33.6 g/dL (32.0-36.0) 04/14/22 06:17 RDW Std Deviation 41.5 fL (36.4-46.3) 04/14/22 06:17 RDW Coeff of Myesha 12.3 % (11.5-14.5) 04/14/22 06:17 Plt Count 233 K/uL (130-400) 04/14/22 06:17 MPV 9.4 fL (9.4-12.3) 04/14/22 06:17 Immature Gran % (Auto) 0.3 % 04/14/22 06:17 Neut % (Auto) 63.1 % 04/14/22 06:17 Lymph % (Auto) 21.0 % 04/14/22 06:17 Geary % (Auto) 11.4 % 04/14/22 06:17 Eos % (Auto) 3.8 % 04/14/22 06:17 Baso % (Auto) 0.4 % 04/14/22 06:17 Neut # (Auto) 4.33 K/uL (1.4-6.5) 04/14/22 06:17 Lymph # (Auto) 1.44 K/uL (1.2-3.4) 04/14/22 06:17 Geary # (Auto) 0.78 K/uL (0.24-0.82) 04/14/22 06:17 Eos # (Auto) 0.26 K/uL (0-0.50) 04/14/22 06:17 Baso # (Auto) 0.03 K/uL (0-0.2) 04/14/22 06:17 Immature Gran # (Auto) 0.02 K/uL (0.00-0.02) 04/14/22 06:17 Sodium 139 mmol/L (136-145) 04/14/22 06:17 Potassium 4.0 mmol/L (3.5-5.1) 04/14/22 06:17 Chloride 106 mmol/L (98-107) 04/14/22 06:17 Carbon Dioxide 28 mmol/L (21-32) 04/14/22 06:17 Anion Gap 5 (3-11) 04/14/22 06:17 BUN 10 mg/dl (6-23) 04/14/22 06:17 Creatinine 0.74 mg/dl (0.6-1.2) 04/14/22 06:17 Est Cr Clr Drug Dosing 78.0 ml/min 04/14/22 06:17 Est GFR ( Amer) 96.5 ml/min 04/14/22 06:17 Est GFR (Non-Af Amer) 83.2 ml/min 04/14/22 06:17 BUN/Creatinine Ratio 13.5 (10-20) 04/14/22 06:17 Glucose 93 mg/dl (70-99(Fasting)) 04/14/22 06:17 Calcium 8.5 mg/dl (8.5-10.1) 04/14/22 06:17 Magnesium 1.9 mg/dl (1.7-2.4) 04/14/22 06:17 Total Bilirubin 0.4 mg/dl (0.2-1.0) 04/13/22 18:38 AST 16 U/L (13-39) 04/13/22 18:38 ALT 12 U/L (7-52) 04/13/22 18:38 Alkaline Phosphatase 87 U/L (34-104) 04/13/22 18:38 Total Protein 7.0 gm/dl (6.0-8.3) 04/13/22 18:38 Albumin 4.3 gm/dl (3.4-5.0) 04/13/22 18:38 Globulin 2.7 gm/dl (2.5-4.0) 04/13/22 18:38 Albumin/Globulin Ratio 1.6 (0.9-2) 04/13/22 18:38 Lipase 102 U/L (11-82) H 04/13/22 18:38 Urine Color Yellow 04/13/22 19:38 Urine Appearance Clear (Clear) 04/13/22 19:38 Urine pH 5.0 (4.5-7.5) 04/13/22 19:38 Ur Specific [place] 1.011 (1.000-1.030) 04/13/22 19:38 Urine Protein Negative (Negative) 04/13/22 19:38 Urine Glucose (UA) Negative (Negative) 04/13/22 19:38 Urine Ketones Negative (Negative) 04/13/22 19:38 Urine Blood Trace (Negative) H 04/13/22 19:38 Urine Nitrite Negative (Negative) 04/13/22 19:38 Urine Bilirubin Negative (Negative) 04/13/22 19:38 Urine Urobilinogen Negative (Negative) 04/13/22 19:38 Ur Leukocyte Esterase Trace (Negative) H 04/13/22 19:38 Urine WBC (Auto) 1-5 /hpf (0-5) 04/13/22 19:38 Urine RBC (Auto) 0-4 /hpf (0-4) 04/13/22 19:38 U Hyaline Cast (Auto) 0 /lpf (0-5) 04/13/22 19:38 U Epithel Cells (Auto) 10-20 /lpf (0-5) H 04/13/22 19:38 Urine Bacteria (Auto) Negative (Negative) 04/13/22 19:38 SARS-CoV-2, RNA, NAAT NEGATIVE (NEGATIVE) 04/13/22 21:45 Impressions Abdomen/Pelvis CT 04/13/22 20:[address] WITH IV CONTRAST CT DOSE: 833.32 mGy.cm HISTORY: Acute abdominal pain diffuse abd pain TECHNIQUE: Multiaxial CT images of the abdomen and pelvis were performed following the IV administration of 85 cc of Optiray, A dose lowering technique was utilized adhering to the principles of ALARA. COMPARISON STUDY: MRI abdomen 06/03/2020, CT abdomen pelvis 06/02/2020 FINDINGS: Subsegmental left basilar predominant opacities favor atelectasis. No pneumatosis or pneumoperitoneum. Unremarkable spleen with a few subcentimeter calcifications. The adrenal glands are unremarkable. Cholecystectomy. Unremarkable liver. Interstitial and peripancreatic edema. Mild high-grade gastric the without associated pancreatic ductal dilation or mass. No acute peripancreatic fluid collection. There is homogeneous enhancement of the pancreas. Unremarkable kidneys. Pelvic structures are suboptimally visualized secondary to streak artifact from hip arthroplasties. Atherosclerosis of the aorta. No lymphadenopathy. No bowel obstruction or bowel wall thickening. Mild to moderate colonic fecal retention. The appendix is not definitively seen. No CT evidence of acute appendicitis. Unremarkable soft tissues. No acute fracture. IMPRESSION: 1. Findings compatible with mild acute pancreatitis. No pancreatic mass or acute peripancreatic fluid collection identified. 2. No bowel obstruction or bowel wall thickening. 3. Cholecystectomy. 4. Additional findings as above. ACT 112: Negative or not required by law. The above report was generated using voice recognition software. It may contain grammatical, syntax or spelling errors. Electronically signed by: Eligio Rivera M.D. 04/13/2022 8:51 PM Hospital Course (1) Abdominal pain, epigastric: Present on admission with worsening abdominal pain CT abd/pelvis showed findings compatible with mild acute pancreatitis. No pancreatic mass or acute peripancreatic fluid collection identified. Lipase 102 on admission today gastro on board S/P EGD showedmild gastritis which is likely related to medication such as citalopram or nonsteroidal as per GI Biopsy from the duodenum and stomach are negative GI recommended trial of Carafate 1 g 4 times daily for 6 weeks Diet advance as tolerated Continue pain control and antiemetic medication IVF discontinued Continue monitor Hyperlipidemia Continue statin. Generalized anxiety disorder: On citalopram Deep venous thrombosis prophylaxis: Heparin subcutaneously. Code status full code Disposition Plan to discharge home today Total Time Total Time Spent Total Time Spent (In Minutes): 35 minutes Discharge Plan Discharge Items Patient Disposition: Home - Self-Care Reason For Visit: ABDOMINAL PAIN Discharge Diagnosis: Abdominal pain, epigastric Gastritis Activity: Resume your previous activity Non-emergency contact: Primary Care Provider and [employer] Call non-emergency contact if: you have any medication questions and your symptoms worsen Follow-up/Referrals: Jared Collado DO [Primary Care Provider] - 04/20/22 2:00 pm (Date & Time 04/20/2022 2:00 PM Provider Lashanda Mena DO [facility] ) Diet: Heart Healthy Addtl Attending Provider Instructions: Follow up with your primary care provider 04/20/2022 @ 2:00 PM Lashanda Mena DO [facility] Follow up with gastrointestinal provider outpatient Continue Sucralfate 1 gram 4 times a day for 6 weeks Avoid any NSAIDs such as Motrin, Aleve, Naproxen, Advil, Ibuprofen, Etodolac .... due to the gastritis Pending Studies at Discharge: No Stand-Alone Forms: [employer], Smoking Cessation Medications and DC Order Prescriptions: New pantoprazole 40 mg Tablet,Delayed Release (Dr/Ec) 40 mg PO QAM Qty: 30 0RF sucralfate [Carafate] 1 gram tablet 1 g PO Q6H 42 Days Qty: 168 0RF Continued atorvastatin 20 mg tablet 20 mg PO HS Qty: 90 1RF citalopram 20 mg tablet 20 mg PO HS multivitamin Tablet 1 tab PO HS cholecalciferol (vitamin D3) [Vitamin D3] 25 mcg (1,000 unit) Tablet 0 mcg PO DAILY Discontinued etodolac 500 mg tablet extended release 24 hr 500 mg PO QAM ibuprofen 200 mg Tablet 400 mg PO Q6H PRN (Reason: Pain) Discharge Orders: Discharge Order (Routine); Ordered 04/16/22 Ordered By: Dee Plaza Admission Data Admit Date/Time: 04/13/22 23:13 Attending Provider: Dee Plaza Admit Provider: Horacio Agosto Primary Care Provider: Jared Collado Other Providers: Horacio Agosto ; Jaqueline Colin ; Orestes Elizabeth ; Margaret Trotter ; Eun Velasquez ; Elana Lea ; Katie Luis ; José Miguel Montes De [place] ; Anaid Serna ; German Daniels ; Jessica Avalos ; Anoop Smith ; Jayesh Clancy ; Sara Hardin ; Debi Carrillo ; Sangeetha Torres ; Sofia Rosales ; Ana M Robertson ; Dawood Hamlin ; Aris Mackenzie ; Kaley Rucker ; Maliha Tidwell Jr Other Interventions: Discharge Summary Assessment (RN) Last Done: 04/16/22 10:12
== END 2022-04-16 10:48 | disposition home or self-care (01) | DRG 440 ==
LOC: ED 17:40 → 3E 23:13

== ENCOUNTER 2022-11-02 02:49 | Inpatient (IN) ==
[2022-11-02] MEDS ORDERED: cefTRIAXone SODIUM 2,000 MG/70 ML BAG IV STA (03:20)
[2022-11-02] MEDS ORDERED: SODIUM CHLORIDE 0.9% 1000ML 1,000 ML IV ONE ×4 (03:20→06:00)
--- NOTE | 2022-11-02 04:02 | Emergency Department Note ---
Impression & Plan Sepsis, Pneumonia ED Provider Note NAME: CARLOS CONDON AGE: 67 SEX: F : 1955 ARRIVES VIA: Walk-In INFORMANT: Patient ED PROVIDER(S): Samuel Matias DO CHIEF COMPLAINT: chills HPI: Patient is a 67-year-old female who presents ER for not feeling well. She notes that she has been having chills and fevers off and on for the past 7 days. She admits to a little bit of a dry cough over the past 5 days. She does also have a headache and she started to get a stiff neck. She denies any chest pain or belly pain with the exception of pain along the right side of her chest/shoulder.. She does have some nausea but no vomiting. She been urinating more frequently than usual. Denies any dysuria or urgency. No other exacerbating or remitting factors. PAST MEDICAL HISTORY:See Below PAST SURGICAL HISTORY:See Below FAMILY HISTORY:See Below SOCIAL HISTORY:See Below HOME MEDICATIONS:See Below ALLERGIES:See Below VITALS:See Below PHYSICAL EXAMINATION: GENERAL: Sitting up in bed, alert, slightly ill-appearing with cough EYE EXAM: normal conjunctiva. OROPHARYNX: Dry mucous membranes NECK: supple, no nuchal rigidity, no adenopathy, non-tender LUNGS: Clear to auscultation. Normal chest wall mechanics HEART: no murmurs, S1 normal and S2 normal ABDOMEN: abdomen soft, non-tender, normo-active bowel sounds, no masses, no rebound or guarding. BACK: Back is symmetrical on inspection and there is no deformity, no midline tenderness, no CVA tenderness. SKIN: no rashes and no bruising UPPER EXTREMITIES: upper extremities are grossly normal. LOWER EXTREMITIES: No pitting edema. NEURO EXAM: Normal sensorium, cranial nerves II-XII grossly intact, normal speech, no gross weakness of arms, no gross weakness of legs. MEDICAL DECISION MAKING: Patient is a 67-year-old female with a past medical history of hypertension, dyslipidemia who presents to the ER for cough fever chills headache and neck pain. IV was established blood work was obtained. Labs show leukocytosis of 16,000. No significant anemia. BMP was unremarkable. Lactic acid was elevated 2.7. Mild transaminitis. Pro-Destin 0.1. UA was clean. Chest x-ray with a right lower lobe infiltrate. CT head and cervical spine was negative. Patient was initially covered with 2 g of Rocephin and following the chest x-ray was given azithromycin. She was given 2 L of IV fluids. She was updated bedside. Trop was slightly elevated at 18. Discussed case with Dr. Abdirahman Pan. She was admitted for further work-up for sepsis likely secondary to the right lower lobe infiltrate. Patient was also given morphine. Triage Nursing notes reviewed. Limited review of prior medical records performed Vital Signs: reviewed and remarkable for fevers Differential diagnosis: Differential diagnosis includes etiologies such as sepsis, UTI, pneumonia, m etabolic, electrolyte abnormalities, cardiac sources, intracerebral event, toxicologic, neurological, as well as others were entertained. ER treatment provided: See below Diagnostics interpreted by me include EKG and cardiac monitoring as listed below: -Cardiac Monitoring: An order was placed for continuous cardiac monitoring. The monitor shows a rate of 115 with sinus rhythm. -ECG: Sinus rhythm rate of 107 Normal axis No PVCs QTc 464 -Laboratory studies:Interpreted by me as stated above in MDM and shown below. Imaging studies: Xrays: As interpreted by me: Portable AP upright 1 view of the chest shows right lower infiltrate CTs show: CT of the head and cervical spine was negative per radiology Consultation(s): As described in MDM Procedures:none Past Med/Surg History Medical History (Updated 11/02/22 @ 04:49 by Samuel Matias DO) Abdominal pain, epigastric Anxiety Hyperlipidemia Osteoarthritis Surgical History History of bilateral tubal ligation History of cholecystectomy History of colonoscopy History of esophagogastroduodenoscopy (EGD) History of tonsillectomy and adenoidectomy History of tooth extraction History of total replacement of both hip joints History of wisdom tooth extraction Family History Father , age 44 of [place] Diabetes Cardiac disorder Family/Other No problems noted. Mother , age in 70s of an [place] Diabetes Cardiac disorder Hypertension Other No family history of adverse response to anesthesia Social History Smoking Status: Never smoker Second Hand Exposure: No; Do You Dip or Chew Tobacco: No; Hx Alcohol Use: Yes Alcohol type: beer and wine Alcohol Intake Frequency: 2-4 x/Month Hx Substance Use: No Preferred Language: Liberian Communication Ability: Effective Mud Engineer Required: No Beliefs That Will Affect Care: None marital status: Current Living Situation: Spouse Feels Safe at Home: Yes Seatbelt Use: always Assistive Devices: None Allergies Allergies Allergy/AdvReac Type Severity Reaction Status Date / Time No Known Allergies Allergy Mild Verified 04/14/22 09:34 Home Meds Home Medications Medication Instructions Recorded Confirmed multivitamin 1 tab PO HS 03/30/18 04/13/22 citalopram 20 mg tablet 20 mg PO HS 12/19/19 04/13/22 cholecalciferol (vitamin D3) 25 0 mcg PO DAILY 04/13/22 04/13/22 mcg (1,000 unit) tablet (Vitamin D3) Previous Rx's Medication Instructions Recorded atorvastatin 20 mg tablet 20 mg PO HS #90 tabs 02/25/20 pantoprazole 40 mg tablet,delayed 40 mg PO QAM #30 tabs 04/16/22 release Results & Data (ED) Vital Signs Vital Signs - 24 hr 11/02/22 02:56 11/02/22 03:26 11/02/22 03:30 Temperature 37.4 C Temperature Source Oral Pulse Rate 122 H 107 H 110 H Respiratory Rate 18 27 H 23 Respiratory Effort / Characteristics Non-Labored Spontaneous Respiratory Depth Normal Blood Pressure 106/72 119/76 110/79 Blood Pressure Mean 83 88 92 Pulse Oximetry 93 95 94 Oxygen Delivery Method Room Air Room Air Room Air Sepsis Recent Fever Within 48 Hours Yes Sepsis New/Unexplained Change in Mental Status No Sepsis Action Taken by Nursing No Action Required 11/02/22 03:50 11/02/22 04:00 11/02/22 04:30 Temperature Temperature Source Pulse Rate 111 H 105 H 106 H Respiratory Rate 23 22 22 Respiratory Effort / Characteristics Respiratory Depth Blood Pressure 112/73 116/74 119/75 Blood Pressure Mean 81 87 86 Pulse Oximetry 94 94 96 Oxygen Delivery Method Room Air Room Air Room Air Sepsis Recent Fever Within 48 Hours Sepsis New/Unexplained Change in Mental Status Sepsis Action Taken by Nursing 11/02/22 05:00 11/02/22 05:30 11/02/22 05:45 Temperature Temperature Source Pulse Rate 105 H 104 H 108 H Respiratory Rate 20 20 Respiratory Effort / Characteristics Respiratory Depth Blood Pressure 114/75 114/74 Blood Pressure Mean 93 86 Pulse Oximetry 96 92 Oxygen Delivery Method Room Air Room Air Sepsis Recent Fever Within 48 Hours Sepsis New/Unexplained Change in Mental Status Sepsis Action Taken by Nursing Laboratory Data 11/02/22 03:32 11/02/22 03:32 Lab Results 11/02/22 11/02/22 11/02/22 Range/Units 03:32 03:32 03:32 WBC 16.37 H (4.8-10.8) K/ul RBC 4.16 L (4.20-5.40) M/uL Hgb 12.8 (12.0-16.0) g/dl Hct 37.9 (37.0-47.0) % MCV 91.1 (80.0-100.0) fL MCH 30.8 (25.0-34.0) pg MCHC 33.8 (32.0-36.0) g/dL RDW Std Deviation 44.0 (36.4-46.3) fL RDW Coeff of Myesha 13.2 (11.5-14.5) % Plt Count 382 (130-400) K/uL MPV 9.0 L (9.4-12.4) fL Immature Gran % (Auto) 0.7 % Neut % (Auto) 90.7 % Lymph % (Auto) 3.0 % Stephenson % (Auto) 4.3 % Eos % (Auto) 1.0 % Baso % (Auto) 0.3 % Neut # (Auto) 14.85 H (1.40-6.50) K/uL Lymph # (Auto) 0.49 L (1.2-3.4) K/uL Stephenson # (Auto) 0.70 H (0.11-0.59) K/uL Eos # (Auto) 0.17 (0-0.50) K/uL Baso # (Auto) 0.05 (0-0.2) K/uL Immature Gran # (Auto) 0.11 (0.01-0.20) K/uL APTT (21.0-31.0) Seconds PTT Ratio Sodium 136 (136-145) mmol/L Potassium 4.4 (3.5-5.1) mmol/L Chloride 102 (98-107) mmol/L Carbon Dioxide 24 (21-32) mmol/L Anion Gap 10 (3-11) BUN 12 (6-23) mg/dl Creatinine 0.71 (0.6-1.2) mg/dl Est Cr Clr Drug Dosing Not Reportable Est GFR ( Amer) 100.7 ml/min Est GFR (Non-Af Amer) 86.9 ml/min BUN/Creatinine Ratio 16.9 (10-20) Glucose 123 H (70-99(Fasting)) mg/dl Lactate 2.7 H* (0.4-2.0) mmol/L Calcium 9.7 (8.6-10.3) mg/dl Total Bilirubin 0.6 (0.2-1.0) mg/dl AST 66 H (13-39) U/L ALT 63 H (7-52) U/L Alkaline Phosphatase 107 H (34-104) U/L Troponin I High Sens 18.0 H (0-14) pg/ml Total Protein 7.2 (6.0-8.3) gm/dl Albumin 4.0 (3.4-5.0) gm/dl Globulin 3.2 (2.5-4.0) gm/dl Albumin/Globulin Ratio 1.3 (0.9-2) Procalcitonin (0-0.5) ng/ml Urine Color Urine Appearance (Clear) Urine pH (4.5-7.5) Ur Specific Hubbard (1.000-1.030) Urine Protein (Negative) Urine Glucose (UA) (Negative) Urine Ketones (Negative) Urine Blood (Negative) Urine Nitrite (Negative) Urine Bilirubin (Negative) Urine Urobilinogen (Negative) Ur Leukocyte Esterase (Negative) Adenovirus (PCR) (NotDetected) B. pertussis DNA (PCR) (NotDetected) B.parapertussis DNA PCR (NotDetected) Lyme Disease IgG Ab (Negative) Lyme Disease IgM Ab (Negative) C. pneumoniae DNA (PCR) (NotDetected) Coronavirus OC43 (PCR) (NotDetected) Coronavirus HKU1 (PCR) (NotDetected) Coronavirus 229E (PCR) (NotDetected) SARS-CoV-2 (PCR) (NotDetected) Coronavirus NL63 (PCR) (NotDetected) Human Metapneumovir PCR (NotDetected) Influenza Type A (PCR) (NotDetected) Influenza Type B (PCR) (NotDetected) M. pneumoniae (PCR) (NotDetected) Parainfluenza 1 (PCR) (NotDetected) Parainfluenza 2 (PCR) (NotDetected) Parainfluenza 3 (PCR) (NotDetected) Parainfluenza 4 (PCR) (NotDetected) RSV (PCR) (NotDetected) Entero/Rhino (PCR) (NotDetected) 11/02/22 11/02/22 11/02/22 Range/Units 03:32 03:32 03:32 WBC (4.8-10.8) K/ul RBC (4.20-5.40) M/uL Hgb (12.0-16.0) g/dl Hct (37.0-47.0) % MCV (80.0-100.0) fL MCH (25.0-34.0) pg MCHC (32.0-36.0) g/dL RDW Std Deviation (36.4-46.3) fL RDW Coeff of Myesha (11.5-14.5) % Plt Count (130-400) K/uL MPV (9.4-12.4) fL Immature Gran % (Auto) % Neut % (Auto) % Lymph % (Auto) % Stephenson % (Auto) % Eos % (Auto) % Baso % (Auto) % Neut # (Auto) (1.40-6.50) K/uL Lymph # (Auto) (1.2-3.4) K/uL Stephenson # (Auto) (0.11-0.59) K/uL Eos # (Auto) (0-0.50) K/uL Baso # (Auto) (0-0.2) K/uL Immature Gran # (Auto) (0.01-0.20) K/uL APTT 27.6 (21.0-31.0) Seconds PTT Ratio 1.0 Sodium (136-145) mmol/L Potassium (3.5-5.1) mmol/L Chloride (98-107) mmol/L Carbon Dioxide (21-32) mmol/L Anion Gap (3-11) BUN (6-23) mg/dl Creatinine (0.6-1.2) mg/dl Est Cr Clr Drug Dosing Est GFR ( Amer) ml/min Est GFR (Non-Af Amer) ml/min BUN/Creatinine Ratio (10-20) Glucose (70-99(Fasting)) mg/dl Lactate (0.4-2.0) mmol/L Calcium (8.6-10.3) mg/dl Total Bilirubin (0.2-1.0) mg/dl AST (13-39) U/L ALT (7-52) U/L Alkaline Phosphatase (34-104) U/L Troponin I High Sens (0-14) pg/ml Total Protein (6.0-8.3) gm/dl Albumin (3.4-5.0) gm/dl Globulin (2.5-4.0) gm/dl Albumin/Globulin Ratio (0.9-2) Procalcitonin 0.10 (0-0.5) ng/ml Urine Color Yellow Urine Appearance Clear (Clear) Urine pH 5.0 (4.5-7.5) Ur Specific Hubbard 1.019 (1.000-1.030) Urine Protein Negative (Negative) Urine Glucose (UA) Negative (Negative) Urine Ketones Negative (Negative) Urine Blood Negative (Negative) Urine Nitrite Negative (Negative) Urine Bilirubin Negative (Negative) Urine Urobilinogen Negative (Negative) Ur Leukocyte Esterase Negative (Negative) Adenovirus (PCR) (NotDetected) B. pertussis DNA (PCR) (NotDetected) B.parapertussis DNA PCR (NotDetected) Lyme Disease IgG Ab Negative (Negative) Lyme Disease IgM Ab Negative (Negative) C. pneumoniae DNA (PCR) (NotDetected) Coronavirus OC43 (PCR) (NotDetected) Coronavirus HKU1 (PCR) (NotDetected) Coronavirus 229E (PCR) (NotDetected) SARS-CoV-2 (PCR) (NotDetected) Coronavirus NL63 (PCR) (NotDetected) Human Metapneumovir PCR (NotDetected) Influenza Type A (PCR) (NotDetected) Influenza Type B (PCR) (NotDetected) M. pneumoniae (PCR) (NotDetected) Parainfluenza 1 (PCR) (NotDetected) Parainfluenza 2 (PCR) (NotDetected) Parainfluenza 3 (PCR) (NotDetected) Parainfluenza 4 (PCR) (NotDetected) RSV (PCR) (NotDetected) Entero/Rhino (PCR) (NotDetected) 11/02/22 Range/Units 04:17 WBC (4.8-10.8) K/ul RBC (4.20-5.40) M/uL Hgb (12.0-16.0) g/dl Hct (37.0-47.0) % MCV (80.0-100.0) fL MCH (25.0-34.0) pg MCHC (32.0-36.0) g/dL RDW Std Deviation (36.4-46.3) fL RDW Coeff of Myesha (11.5-14.5) % Plt Count (130-400) K/uL MPV (9.4-12.4) fL Immature Gran % (Auto) % Neut % (Auto) % Lymph % (Auto) % Stephenson % (Auto) % Eos % (Auto) % Baso % (Auto) % Neut # (Auto) (1.40-6.50) K/uL Lymph # (Auto) (1.2-3.4) K/uL Stephenson # (Auto) (0.11-0.59) K/uL Eos # (Auto) (0-0.50) K/uL Baso # (Auto) (0-0.2) K/uL Immature Gran # (Auto) (0.01-0.20) K/uL APTT (21.0-31.0) Seconds PTT Ratio Sodium (136-145) mmol/L Potassium (3.5-5.1) mmol/L Chloride (98-107) mmol/L Carbon Dioxide (21-32) mmol/L Anion Gap (3-11) BUN (6-23) mg/dl Creatinine (0.6-1.2) mg/dl Est Cr Clr Drug Dosing Est GFR ( Amer) ml/min Est GFR (Non-Af Amer) ml/min BUN/Creatinine Ratio (10-20) Glucose (70-99(Fasting)) mg/dl Lactate (0.4-2.0) mmol/L Calcium (8.6-10.3) mg/dl Total Bilirubin (0.2-1.0) mg/dl AST (13-39) U/L ALT (7-52) U/L Alkaline Phosphatase (34-104) U/L Troponin I High Sens (0-14) pg/ml Total Protein (6.0-8.3) gm/dl Albumin (3.4-5.0) gm/dl Globulin (2.5-4.0) gm/dl Albumin/Globulin Ratio (0.9-2) Procalcitonin (0-0.5) ng/ml Urine Color Urine Appearance (Clear) Urine pH (4.5-7.5) Ur Specific Hubbard (1.000-1.030) Urine Protein (Negative) Urine Glucose (UA) (Negative) Urine Ketones (Negative) Urine Blood (Negative) Urine Nitrite (Negative) Urine Bilirubin (Negative) Urine Urobilinogen (Negative) Ur Leukocyte Esterase (Negative) Adenovirus (PCR) Not Detected (NotDetected) B. pertussis DNA (PCR) Not Detected (NotDetected) B.parapertussis DNA PCR Not Detected (NotDetected) Lyme Disease IgG Ab (Negative) Lyme Disease IgM Ab (Negative) C. pneumoniae DNA (PCR) Not Detected (NotDetected) Coronavirus OC43 (PCR) Not Detected (NotDetected) Coronavirus HKU1 (PCR) Not Detected (NotDetected) Coronavirus 229E (PCR) Not Detected (NotDetected) SARS-CoV-2 (PCR) Not Detected (NotDetected) Coronavirus NL63 (PCR) Not Detected (NotDetected) Human Metapneumovir PCR Not Detected (NotDetected) Influenza Type A (PCR) Not Detected (NotDetected) Influenza Type B (PCR) Not Detected (NotDetected) M. pneumoniae (PCR) Not Detected (NotDetected) Parainfluenza 1 (PCR) Not Detected (NotDetected) Parainfluenza 2 (PCR) Not Detected (NotDetected) Parainfluenza 3 (PCR) Not Detected (NotDetected) Parainfluenza 4 (PCR) Not Detected (NotDetected) RSV (PCR) Not Detected (NotDetected) Entero/Rhino (PCR) Not Detected (NotDetected) Administered Medications Doxycycline Hyclate 100 mg/ (Dextrose) 110 mls @ 50 mls/hr IV NOW STA Stop: 11/02/22 07:03 Last Admin: 11/02/22 05:19 Dose: 50 mls/hr Documented By: BART Discontinued Medications Sodium Chloride (Nss 1000ml) 1,000 mls @ 999 mls/hr IV .Q1H1M ONE Stop: 11/02/22 04:20 Last Infusion: 11/02/22 04:54 Dose: 0 mls/hr Documented By: Admin: 11/02/22 03:53 Dose: 999 mls/hr Documented By: BART Ceftriaxone Sodium (Rocephin) 2,000 mg in 70 mls @ 140 mls/hr IV NOW STA Stop: 11/02/22 03:49 Last Infusion: 11/02/22 04:54 Dose: 0 mls/hr Documented By: Admin: 11/02/22 04:24 Dose: 140 mls/hr Documented By: BART Azithromycin 500 mg/ Dextrose 255 mls @ 127.5 mls/hr IV NOW STA Stop: 11/02/22 06:35 Last Admin: 11/02/22 04:58 Dose: Not Given Documented By: BART Sodium Chloride (Nss 1000ml) 1,000 mls @ 999 mls/hr IV .Q1H1M ONE Stop: 11/02/22 05:39 Last Admin: 11/02/22 05:07 Dose: 999 mls/hr Documented By: BART Sodium Chloride (Nss 1000ml) 1,000 mls @ 999 mls/hr IV .Q1H1M ONE Stop: 11/02/22 06:03 Last Admin: 11/02/22 05:52 Dose: Not Given Documented By: BART Morphine Sulfate (Morphine Sulfate 4 Mg/Ml 1 Ml Carp\Vial) 4 mg IV NOW STA Stop: 11/02/22 04:46 Last Admin: 11/02/22 05:03 Dose: 4 mg Documented By: BART Ondansetron HCl (Ondansetron Inj 2 Mg/Ml 2 Ml Vial) 4 mg IV NOW STA Stop: 11/02/22 04:46 Last Admin: 11/02/22 05:01 Dose: 4 mg Documented By: BART Imaging Data Radiologist's Impression: Cervical Spine CT 11/02/22 03:19 Exam(s): CT C SPINE EXAM: CT Cervical Spine Without Intravenous Contrast CLINICAL HISTORY: Reason for exam: neck pain. TECHNIQUE: Axial computed tomography images of the cervical spine without intravenous contrast. CTDI is 23.98 mGy and DLP is 446.81 mGy-cm. Automated exposure control was utilized for the study. A dose lowering technique was utilized adhering to the principles of ALARA. COMPARISON: None. FINDINGS: Vertebrae: No acute fracture. Multilevel endplate spondylosis with narrowing of disc height along the dorsal C5-C6 and C6-C7. Discs/spinal canal/neural foramina: Multilevel disc space narrowing at C5-C6 and C6-C7. Normal alignment of the cervical vertebral bodies with normal cervical lordosis. Advanced degenerative disease of the anterior C1-C2 articulation. Multilevel bilateral apophyseal hypertrophy contributing to variable degrees of neuroforaminal encroachment. Soft tissues: Unremarkable. Pleural space: Lung apices revealed no pneumothorax. IMPRESSION: 1. No acute fracture or subluxation. 2. Diffuse osteopenia with multilevel degenerative disease as described. Electronically signed by: Toyin Sapp MD 11/02/22 04:[address] 11/02/22 03:19 Exam(s): CT HEAD Without Contrast EXAM: CT Head Without Intravenous Contrast CLINICAL HISTORY: Reason for exam: melendrez. TECHNIQUE: Axial computed tomography images of the head/brain without intravenous contrast. CTDI is 38.17 mGy and DLP is 546.36 mGy-cm. Automated exposure control was utilized for the study. A dose lowering technique was utilized adhering to the principles of ALARA. COMPARISON: None. FINDINGS: Brain: Mild generalized brain atrophy. No hemorrhage. No significant white matter disease. Ventricles: Unremarkable. No ventriculomegaly. Bones/joints: Unremarkable. No acute fracture. Soft tissues: Unremarkable. Sinuses: Unremarkable as visualized. No acute sinusitis. Mastoid air cells: Unremarkable as visualized. No mastoid effusion. IMPRESSION: Mild involutional changes, otherwise normal CT brain for age. Electronically signed by: Toyin Sapp MD 11/02/22 04:06 AM Discharge Plan Visit Data Chief Complaint: Headache Stated Complaint: HEADACH 10 DAYS, STIFF NECK TODAY ED Provider: Samuel Matias Discharge Problem: Sepsis, Pneumonia Forms Stand Alone Forms: [employer] Prescriptions Prescriptions: No Action atorvastatin 20 mg tablet 20 mg PO HS Qty: 90 1RF citalopram 20 mg tablet 20 mg PO HS multivitamin Tablet 1 tab PO HS cholecalciferol (vitamin D3) [Vitamin D3] 25 mcg (1,000 unit) Tablet 0 mcg PO DAILY pantoprazole 40 mg Tablet,Delayed Release (Dr/Ec) 40 mg PO QAM Qty: 30 0RF Referrals Referrals: Jared Collado DO [Primary Care Provider] -
--- NOTE | 2022-11-02 04:06 | CT Scan Report ---
Exam(s): CT HEAD Without Contrast EXAM: CT Head Without Intravenous Contrast CLINICAL HISTORY: Reason for exam: melendrez. TECHNIQUE: Axial computed tomography images of the head/brain without intravenous contrast. CTDI is 38.17 mGy and DLP is 546.36 mGy-cm. Automated exposure control was utilized for the study. A dose lowering technique was utilized adhering to the principles of ALARA. COMPARISON: None. FINDINGS: Brain: Mild generalized brain atrophy. No hemorrhage. No significant white matter disease. Ventricles: Unremarkable. No ventriculomegaly. Bones/joints: Unremarkable. No acute fracture. Soft tissues: Unremarkable. Sinuses: Unremarkable as visualized. No acute sinusitis. Mastoid air cells: Unremarkable as visualized. No mastoid effusion. IMPRESSION: Mild involutional changes, otherwise normal CT brain for age. Electronically signed by: Toyin Sapp MD 11/02/22 04:06 AM
[2022-11-02 04:16] LABS: Alanine Aminotransferase 63 U/L (7-52); Albumin Globulin Ratio 1.3 (0.9-2); Alkaline Phosphatase 107 U/L (34-104); Anion Gap 10 (3-11); Aspartate Aminotransferase 66 U/L (13-39); BUN Creatinine Ratio 16.9 (10-20); Bilirubin,Total 0.6 mg/dl (0.2-1.0); Blood Urea Nitrogen 12 mg/dl (6-23); Calcium 9.7 mg/dl (8.6-10.3); Carbon Dioxide 24 mmol/L (21-32); Chloride 102 mmol/L (98-107); Est GFR (African American) 100.7 ml/min; Est GFR (Non-African American) 86.9 ml/min; Globulin 3.2 gm/dl (2.5-4.0); Glucose 123 mg/dl (70-99(Fasting)); Potassium 4.4 mmol/L (3.5-5.1); Sodium 136 mmol/L (136-145); Total Protein 7.2 gm/dl (6.0-8.3)
--- NOTE | 2022-11-02 04:19 | CT Scan Report ---
Exam(s): CT C SPINE EXAM: CT Cervical Spine Without Intravenous Contrast CLINICAL HISTORY: Reason for exam: neck pain. TECHNIQUE: Axial computed tomography images of the cervical spine without intravenous contrast. CTDI is 23.98 mGy and DLP is 446.81 mGy-cm. Automated exposure control was utilized for the study. A dose lowering technique was utilized adhering to the principles of ALARA. COMPARISON: None. FINDINGS: Vertebrae: No acute fracture. Multilevel endplate spondylosis with narrowing of disc height along the dorsal C5-C6 and C6-C7. Discs/spinal canal/neural foramina: Multilevel disc space narrowing at C5-C6 and C6-C7. Normal alignment of the cervical vertebral bodies with normal cervical lordosis. Advanced degenerative disease of the anterior C1-C2 articulation. Multilevel bilateral apophyseal hypertrophy contributing to variable degrees of neuroforaminal encroachment. Soft tissues: Unremarkable. Pleural space: Lung apices revealed no pneumothorax. IMPRESSION: 1. No acute fracture or subluxation. 2. Diffuse osteopenia with multilevel degenerative disease as described. Electronically signed by: Toyin Sapp MD 11/02/22 04:18 AM
[2022-11-02 04:20] LABS: Hematocrit (blood only) 37.9 % (37.0-47.0); Hemoglobin 12.8 g/dl (12.0-16.0); Mean Corpuscular Hemoglobin 30.8 pg (25.0-34.0); Mean Corpuscular Hgb Conc 33.8 g/dL (32.0-36.0); Mean Corpuscular Volume 91.1 fL (80.0-100.0); Platelet Count 382 K/uL (130-400); RDW Coefficient of Variation 13.2 % (11.5-14.5); Red Blood Count 4.16 M/uL (4.20-5.40); White Blood Count 16.37 K/ul (4.8-10.8)
[2022-11-02 04:35] LABS: Appearance Urine Clear (Clear); Bilirubin Urine Negative (Negative); Blood Urine Negative (Negative); Color Urine Yellow; Glucose Urine UA Negative (Negative); Ketones Urine Negative (Negative); Leukocyte Esterase Urine Negative (Negative); Nitrite Urine Negative (Negative); Protein Urine Negative (Negative); Specific Gravity Urine 1.019 (1.000-1.030); Urobilinogen Urine Negative (Negative)
[2022-11-02] MEDS ORDERED: AZITHROMYCIN 500 MG in DEXTROSE 5% 250 ML IV STA (04:36)
[2022-11-02] MEDS ORDERED: ONDANSETRON INJ 2 MG/ML 2 ML VIAL IV STA (04:45)
[2022-11-02] MEDS ORDERED: MoRPHine SULFATE 4 MG/ML 1 ML CARP\\VIAL IV STA (04:45)
[2022-11-02 04:49] LABS: Lyme Ab IgG w/WB Rflx Negative (Negative); Lyme Ab IgM w/WB Rflx Negative (Negative)
[2022-11-02] MEDS ORDERED: DOXYCYCLINE HYCLATE 100 MG in DEXTROSE 5% 100 ML IV STA (04:52)
[2022-11-02] MEDS ORDERED: MAGNESIUM SULFATE / D5W 1 GM/100 ML BAG IV ONE (04:55)
[2022-11-02 05:01] LABS: Basophils # (auto) 0.05 K/uL (0-0.2); Basophils % (auto) 0.3 %; Eosinophils # (auto) 0.17 K/uL (0-0.50); Immature Granulocytes # (auto) 0.11 K/uL (0.01-0.20); Immature Granulocytes % (auto) 0.7 %; Lymphocytes # (auto) 0.49 K/uL (1.2-3.4); Monocytes % (auto) 4.3 %; Neutrophils # (auto) 14.85 K/uL (1.40-6.50); Neutrophils % (auto) 90.7 %
[2022-11-02 05:11] LABS: Adenovirus PCR Not Detected (NotDetected); Bordetella parapertussis PCR Not Detected (NotDetected); Bordetella pertussis PCR Not Detected (NotDetected); Chlamydia pneumoniae PCR Not Detected (NotDetected); Coronavirus 229E PCR Not Detected (NotDetected); Coronavirus CoV-2 (COVID19)PCR Not Detected (NotDetected); Coronavirus HKU1 PCR Not Detected (NotDetected); Coronavirus NL63 PCR Not Detected (NotDetected); Coronavirus OC43PCR Not Detected (NotDetected); Human Metapneumovirus PCR Not Detected (NotDetected); Influenza A PCR Not Detected (NotDetected); Influenza B PCR Not Detected (NotDetected); Mycoplasma pneumoniae PCR Not Detected (NotDetected); Parainfluenza Virus 1 PCR Not Detected (NotDetected); Parainfluenza Virus 2 PCR Not Detected (NotDetected); Parainfluenza Virus 3 PCR Not Detected (NotDetected); Parainfluenza Virus 4 PCR Not Detected (NotDetected); Respiratory Syncytial VirusPCR Not Detected (NotDetected); Rhinovirus/Enterovirus PCR Not Detected (NotDetected)
[2022-11-02 05:43] LABS: Partial Thromboplastin Time 27.6 Seconds (21.0-31.0)
--- NOTE | 2022-11-02 05:48 | History & Physical Report ---
Date of Service November 02, 2022 Assessment & Plan (1) Severe sepsis: Plan: SIRS plus lactic acidosis Atypical pneumonia Troponin elevation secondary to illness hyperlipidemia on statin Rx GERD, stable on regimen anxiety/mood disorder, stable prediabetes, hemoglobin A1c of 5.08 May 2022 Posttraumatic right shoulder pain Medical telemetry CS, Doxycycline IVF, follow lactic acid Follow troponin, TTE if with progression Right shoulder x-ray May need orthopedics eval pending results DVT prophylaxis. Lovenox subcu Full code Text document was generated using [employer] voice recognition software. It may contain grammatical or spelling errors. Kindly contact undersigned for clarification of any documentation item in question. History of Present Illness Chief Complaint: Not feeling well, dry cough, headache, stiff neck Primary Care Provider: Jared Collado DO History obtained from patient, family, and records. Medical history significant for hyperlipidemia, GERD, chronic back pain, anxiety/mood disorder. Last confinement April 2022 for pancreatitis. Patient was on vacation at [place], [place] about 2 weeks ago. Fell from [facility] resulting in head trauma without LOC. Tolerable headache and neck pain symptoms. Tolerable right shoulder pain. Patient started getting sick a week ago on the way home to [place]. Dry cough without chest pain. Some shortness of breath. Denies aspiration. Poor appetite. Not sure about sick contacts. Patient seen at PCPs office last week. Outpatient Lyme screen and anaplasmosis tests were negative. Plain x-rays of the wrists were negative for fractures Patient brought to ER for worsening symptoms. Ceftriaxone administered at the ER for sepsis. Medical History as above Surgical History : Dental surgery, tonsillectomy/adenoidectomy, hip replacement, cholecystectomy, oviduct fulguration, intranasal lesion removal Family History : Heart disease Personal/Social history : Non-smoker, occasional intake, retired hairdresser Allergies Allergy/AdvReac Type Severity Reaction Status Date / Time No Known Allergies Allergy Mild Verified 04/14/22 09:34 Home Medications Medication Instructions Recorded Confirmed Type multivitamin 1 tab PO HS 03/30/18 04/13/22 History citalopram 20 mg tablet 20 mg PO HS 12/19/19 04/13/22 History atorvastatin 20 mg tablet 20 mg PO HS #90 tabs 02/25/20 04/13/22 Rx cholecalciferol (vitamin D3) 25 0 mcg PO DAILY 04/13/22 04/13/22 History mcg (1,000 unit) tablet (Vitamin D3) pantoprazole 40 mg tablet,delayed 40 mg PO QAM #30 tabs 04/16/22 Rx release Past Med/Surg History Medical History (Updated 11/02/22 @ 07:51 by Thang Lopez MD) Abdominal pain, epigastric Anxiety Hyperlipidemia Osteoarthritis Surgical History History of bilateral tubal ligation History of cholecystectomy History of colonoscopy History of esophagogastroduodenoscopy (EGD) History of tonsillectomy and adenoidectomy History of tooth extraction History of total replacement of both hip joints History of wisdom tooth extraction Family History Father , age 44 of [place] Diabetes Cardiac disorder Family/Other No problems noted. Mother , age in 70s of an [place] Diabetes Cardiac disorder Hypertension Other No family history of adverse response to anesthesia Social History Smoking Status: Never smoker Second Hand Exposure: No; Do You Dip or Chew Tobacco: No; Tobacco Cessation Education Requested by Patient: No Hx Alcohol Use: No Hx Substance Use: No Preferred Language: Setswana Communication Ability: Effective Manufacturing Applications Engineer Required: No Beliefs That Will Affect Care: None marital status: Current Living Situation: Spouse Other Information That Helps Us Care for You: No Feels Safe at Home: Yes Safety Concerns: Feels Safe At This Time Seatbelt Use: always Assistive Devices: None Review of Systems Review of Systems: As per HPI, all other systems reviewed and negative Physical Exam Physical Exam: GENERAL: Comfortable, pleasant, obese, incessant dry cough symptoms no respiratory distress SKIN: Normal color, warm HEENT: Sugden palpebral conjunctivae, no ptosis, dry buccal mucosa NECK : Some limitation in motion with minimal no tenderness CHEST : Decreased breath sounds, no tenderness HEART : Tachycardic, no obvious murmurs ABDOMEN: Some distention, nontender EXTREMITIES : No LE swelling/tenderness, right shoulder tenderness, no other conspicuous deformities noted NEUROLOGIC : Coherent, no facial asymmetry, no other gross focality Results & Data Results & Data Vital Signs (Past 12 Hours) Vital Signs Temp Pulse Resp BP Pulse Ox O2 Del Method 11/02/22 05:30 104 H 20 114/74 92 Room Air 11/02/22 05:00 105 H 20 114/75 96 Room Air 11/02/22 04:30 106 H 22 119/75 96 Room Air 11/02/22 04:00 105 H 22 116/74 94 Room Air 11/02/22 03:50 111 H 23 112/73 94 Room Air 11/02/22 03:30 110 H 23 110/79 94 Room Air 11/02/22 03:26 107 H 27 H 119/76 95 Room Air 11/02/22 02:56 37.4 C 122 H 18 106/72 93 Room Air Laboratory Results Laboratory Results WBC 16.37 K/ul (4.8-10.8) H 11/02/22 03:32 RBC 4.16 M/uL (4.20-5.40) L 11/02/22 03:32 Hgb 12.8 g/dl (12.0-16.0) 11/02/22 03:32 Hct 37.9 % (37.0-47.0) 11/02/22 03:32 MCV 91.1 fL (80.0-100.0) 11/02/22 03:32 MCH 30.8 pg (25.0-34.0) 11/02/22 03:32 MCHC 33.8 g/dL (32.0-36.0) 11/02/22 03:32 RDW Std Deviation 44.0 fL (36.4-46.3) 11/02/22 03:32 RDW Coeff of Myesha 13.2 % (11.5-14.5) 11/02/22 03:32 Plt Count 382 K/uL (130-400) 11/02/22 03:32 MPV 9.0 fL (9.4-12.4) L 11/02/22 03:32 Immature Gran % (Auto) 0.7 % 11/02/22 03:32 Neut % (Auto) 90.7 % 11/02/22 03:32 Lymph % (Auto) 3.0 % 11/02/22 03:32 [place] % (Auto) 4.3 % 11/02/22 03:32 Eos % (Auto) 1.0 % 11/02/22 03:32 Baso % (Auto) 0.3 % 11/02/22 03:32 Neut # (Auto) 14.85 K/uL (1.40-6.50) H 11/02/22 03:32 Lymph # (Auto) 0.49 K/uL (1.2-3.4) L 11/02/22 03:32 [place] # (Auto) 0.70 K/uL (0.11-0.59) H 11/02/22 03:32 Eos # (Auto) 0.17 K/uL (0-0.50) 11/02/22 03:32 Baso # (Auto) 0.05 K/uL (0-0.2) 11/02/22 03:32 Immature Gran # (Auto) 0.11 K/uL (0.01-0.20) 11/02/22 03:32 APTT 27.6 Seconds (21.0-31.0) 11/02/22 03:32 PTT Ratio 1.0 11/02/22 03:32 Sodium 136 mmol/L (136-145) 11/02/22 03:32 Potassium 4.4 mmol/L (3.5-5.1) 11/02/22 03:32 Chloride 102 mmol/L (98-107) 11/02/22 03:32 Carbon Dioxide 24 mmol/L (21-32) 11/02/22 03:32 Anion Gap 10 (3-11) 11/02/22 03:32 BUN 12 mg/dl (6-23) 11/02/22 03:32 Creatinine 0.71 mg/dl (0.6-1.2) 11/02/22 03:32 Est Cr Clr Drug Dosing Not Reportable 11/02/22 03:32 Est GFR ( Amer) 100.7 ml/min 11/02/22 03:32 Est GFR (Non-Af Amer) 86.9 ml/min 11/02/22 03:32 BUN/Creatinine Ratio 16.9 (10-20) 11/02/22 03:32 Glucose 123 mg/dl (70-99(Fasting)) H 11/02/22 03:32 Lactate 2.7 mmol/L (0.4-2.0) H* 11/02/22 03:32 Calcium 9.7 mg/dl (8.6-10.3) 11/02/22 03:32 Total Bilirubin 0.6 mg/dl (0.2-1.0) 11/02/22 03:32 AST 66 U/L (13-39) H 11/02/22 03:32 ALT 63 U/L (7-52) H 11/02/22 03:32 Alkaline Phosphatase 107 U/L (34-104) H 11/02/22 03:32 Troponin I High Sens 18.0 pg/ml (0-14) H 11/02/22 03:32 Total Protein 7.2 gm/dl (6.0-8.3) 11/02/22 03:32 Albumin 4.0 gm/dl (3.4-5.0) 11/02/22 03:32 Globulin 3.2 gm/dl (2.5-4.0) 11/02/22 03:32 Albumin/Globulin Ratio 1.3 (0.9-2) 11/02/22 03:32 Procalcitonin 0.10 ng/ml (0-0.5) 11/02/22 03:32 Urine Color Yellow 11/02/22 03:32 Urine Appearance Clear (Clear) 11/02/22 03:32 Urine pH 5.0 (4.5-7.5) 11/02/22 03:32 Ur Specific [place] 1.019 (1.000-1.030) 11/02/22 03:32 Urine Protein Negative (Negative) 11/02/22 03:32 Urine Glucose (UA) Negative (Negative) 11/02/22 03:32 Urine Ketones Negative (Negative) 11/02/22 03:32 Urine Blood Negative (Negative) 11/02/22 03:32 Urine Nitrite Negative (Negative) 11/02/22 03:32 Urine Bilirubin Negative (Negative) 11/02/22 03:32 Urine Urobilinogen Negative (Negative) 11/02/22 03:32 Ur Leukocyte Esterase Negative (Negative) 11/02/22 03:32 Adenovirus (PCR) Not Detected (NotDetected) 11/02/22 04:17 B. pertussis DNA (PCR) Not Detected (NotDetected) 11/02/22 04:17 B.parapertussis DNA PCR Not Detected (NotDetected) 11/02/22 04:17 Lyme Disease IgG Ab Negative (Negative) 11/02/22 03:32 Lyme Disease IgM Ab Negative (Negative) 11/02/22 03:32 C. pneumoniae DNA (PCR) Not Detected (NotDetected) 11/02/22 04:17 Coronavirus OC43 (PCR) Not Detected (NotDetected) 11/02/22 04:17 Coronavirus HKU1 (PCR) Not Detected (NotDetected) 11/02/22 04:17 Coronavirus 229E (PCR) Not Detected (NotDetected) 11/02/22 04:17 SARS-CoV-2 (PCR) Not Detected (NotDetected) 11/02/22 04:17 Coronavirus NL63 (PCR) Not Detected (NotDetected) 11/02/22 04:17 Human Metapneumovir PCR Not Detected (NotDetected) 11/02/22 04:17 Influenza Type A (PCR) Not Detected (NotDetected) 11/02/22 04:17 Influenza Type B (PCR) Not Detected (NotDetected) 11/02/22 04:17 M. pneumoniae (PCR) Not Detected (NotDetected) 11/02/22 04:17 Parainfluenza 1 (PCR) Not Detected (NotDetected) 11/02/22 04:17 Parainfluenza 2 (PCR) Not Detected (NotDetected) 11/02/22 04:17 Parainfluenza 3 (PCR) Not Detected (NotDetected) 11/02/22 04:17 Parainfluenza 4 (PCR) Not Detected (NotDetected) 11/02/22 04:17 RSV (PCR) Not Detected (NotDetected) 11/02/22 04:17 Entero/Rhino (PCR) Not Detected (NotDetected) 11/02/22 04:[address] 11/02/22 03:19 Exam(s): CT C SPINE EXAM: CT Cervical Spine Without Intravenous Contrast CLINICAL HISTORY: Reason for exam: neck pain. TECHNIQUE: Axial computed tomography images of the cervical spine without intravenous contrast. CTDI is 23.98 mGy and DLP is 446.81 mGy-cm. Automated exposure control was utilized for the study. A dose lowering technique was utilized adhering to the principles of ALARA. COMPARISON: None. FINDINGS: Vertebrae: No acute fracture. Multilevel endplate spondylosis with narrowing of disc height along the dorsal C5-C6 and C6-C7. Discs/spinal canal/neural foramina: Multilevel disc space narrowing at C5-C6 and C6-C7. Normal alignment of the cervical vertebral bodies with normal cervical lordosis. Advanced degenerative disease of the anterior C1-C2 articulation. Multilevel bilateral apophyseal hypertrophy contributing to variable degrees of neuroforaminal encroachment. Soft tissues: Unremarkable. Pleural space: Lung apices revealed no pneumothorax. IMPRESSION: 1. No acute fracture or subluxation. 2. Diffuse osteopenia with multilevel degenerative disease as described. Electronically signed by: Toyin Sapp MD 11/02/22 04:[address] 11/02/22 03:19 Exam(s): CT HEAD Without Contrast EXAM: CT Head Without Intravenous Contrast CLINICAL HISTORY: Reason for exam: melendrez. TECHNIQUE: Axial computed tomography images of the head/brain without intravenous contrast. CTDI is 38.17 mGy and DLP is 546.36 mGy-cm. Automated exposure control was utilized for the study. A dose lowering technique was utilized adhering to the principles of ALARA. COMPARISON: None. FINDINGS: Brain: Mild generalized brain atrophy. No hemorrhage. No significant white matter disease. Ventricles: Unremarkable. No ventriculomegaly. Bones/joints: Unremarkable. No acute fracture. Soft tissues: Unremarkable. Sinuses: Unremarkable as visualized. No acute sinusitis. Mastoid air cells: Unremarkable as visualized. No mastoid effusion. IMPRESSION: Mild involutional changes, otherwise normal CT brain for age. Electronically signed by: Toyin Sapp MD 11/02/22 04:06 AM Diagnostic Findings Chest x-ray as per my interpretation atelectasis, interstitial infiltrates EKG as per my interpretation : Rate 110, sinus tachycardia, normal axis, septal infarct, T wave abnormalities septal leads
[2022-11-02] MEDS ORDERED: PROMETHAZINE HCL 12.5 MG in SODIUM CHLORIDE 0.9% 50 ML IV PRN (05:53)
[2022-11-02] MEDS ORDERED: KETOROLAC TROMETHAMINE 15 MG/ML VIAL IV PRN (05:53)
[2022-11-02] MEDS ORDERED: BENZONATATE 100 MG CAPSULE PO PRN (05:53)
--- NOTE | 2022-11-02 06:59 | XRay Report ---
RIGHT SHOULDER 3 VIEWS CLINICAL HISTORY: Right shoulder injury. Fall week ago. FINDINGS: 3 views of the right shoulder are obtained. No prior studies are available for comparison a t the time of dictation. The skeletal structures are osteopenic. There is no radiographic evidence of fracture or dislocation. Productive degenerative change is seen. The clavicular joint. There is mode rate osteoarthritic change of the glenohumeral articulation. There is calcific tendinopathy. The over lying soft tissues are otherwise normal in appearance. The visualized right lung parenchyma appears c lear. IMPRESSION: 1. No acute bony abnormality is identified. 2. Calcific tendinopathy. Electronically signed by: Alvaro Kapoor M.D. 11/02/2022 6:57 AM
[2022-11-02] MEDS: DOXYCYCLINE HYCLATE 100 MG CAP PO SCH ×2 (07:38→21:18)
[2022-11-02] MEDS: ENOXAPARIN INJ 40 MG/0.4 ML SYR SQ SCH (07:39)
[2022-11-02] MEDS: guaiFENesin 600 MG TABCR PO SCH ×2 (08:09→22:40)
--- NOTE | 2022-11-02 08:26 | XRay Report ---
SINGLE VIEW CHEST CLINICAL HISTORY: Cough FINDINGS: 2 AP, portable, upright chest radiographs are compared to study dated 04/04/2018. The heart is mildly enlarged noting atherosclerotic calcification of the thoracic aorta. There is pulmonary vas cular congestion. Scarring/atelectasis is seen at the lung bases. No airspace consolidation or large pleural effusion is identified. No pneumothorax is seen. The skeletal structures are osteopenic. The bony thorax is grossly intact. Arthritic change is seen in the shoulders. IMPRESSION: Cardiomegaly with pulmonary vascular congestion. ACT 112: Negative or not required by law. Electronically signed by: Alvaro Kapoor M.D. 11/02/2022 8:25 AM
[2022-11-02] MEDS: CEROVITE ADV FORMULA TAB PO SCH (10:35)
[2022-11-02] MEDS: oxyCODONE HCL IR 5 MG TAB (IMMEDIATE RELEASE) PO PRN ×2 (11:07→19:41)
[2022-11-02] MEDS: ACETAMINOPHEN 325 MG TAB PO PRN ×3 (12:10→22:55)
--- NOTE | 2022-11-02 14:40 | Communication Note ---
Date of Service: November 02, 2022 Patient seen and examined at bedside for severe sepsis likely secondary to atypical pneumonia of versus viral respiratory infection. Patient with dry cough worsening since yesterday, on and off fever since last 1 week. Continue with doxycycline, will continue with Rocephin. Cough medications w/ tessalon and mucinex. Continue with IV fluids for now, trend lactate until normal. Troponin mildly elevated, likely demand ischemia secondary to acute stress. Continue to provide other supportive management. c/w tylenol for fever. await blood culture. labs in am, trend procal in AM. resp panel and lyme screen negative. On examination: Patient on room air, with dry cough, occasional crackles bilateral bases, no erythema/engorgement of throat on exam. For further details on the patient, refer to today's H&P note.
[2022-11-02] MEDS: CHOLECALCIFEROL 5,000 UNITS 125 MCG TAB PO SCH (15:47)
[2022-11-02] MEDS: SODIUM CHLORIDE 0.9% 1000ML 1,000 ML IV SCH (15:47)
[2022-11-02] MEDS: CITALOPRAM 20 MG TAB PO SCH (21:18)
[2022-11-02] MEDS: ATORVASTATIN 20 MG TAB PO SCH (21:18)
[2022-11-03] MEDS: ACETAMINOPHEN 325 MG TAB PO PRN ×2 (07:32→12:20)
[2022-11-03 07:34] LABS: Hematocrit (blood only) 28.7 % (37.0-47.0); Hemoglobin 9.4 g/dl (12.0-16.0); Mean Corpuscular Hemoglobin 29.9 pg (25.0-34.0); Mean Corpuscular Hgb Conc 32.8 g/dL (32.0-36.0); Mean Corpuscular Volume 91.4 fL (80.0-100.0); Mean Platelet Volume 9.1 fL (9.4-12.4); Platelet Count 289 K/uL (130-400); RDW Coefficient of Variation 13.5 % (11.5-14.5); RDW Standard Deviation 45.5 fL (36.4-46.3); Red Blood Count 3.14 M/uL (4.20-5.40); White Blood Count 9.95 K/ul (4.8-10.8)
[2022-11-03 07:35] LABS: Basophils # (auto) 0.02 K/uL (0-0.2); Basophils % (auto) 0.2 %; Eosinophils # (auto) 0.33 K/uL (0-0.50); Eosinophils % (auto) 3.3 %; Immature Granulocytes # (auto) 0.08 K/uL (0.01-0.20); Immature Granulocytes % (auto) 0.8 %; Lymphocytes # (auto) 0.93 K/uL (1.2-3.4); Lymphocytes % (auto) 9.3 %; Monocytes # (auto) 0.72 K/uL (0.11-0.59); Monocytes % (auto) 7.2 %; Neutrophils # (auto) 7.87 K/uL (1.40-6.50); Neutrophils % (auto) 79.2 %
[2022-11-03] MEDS: cefTRIAXone SODIUM 2,000 MG in DEXTROSE 5% 50 ML IV SCH (07:35)
[2022-11-03 07:39] LABS: BUN Creatinine Ratio 15.2 (10-20); Calcium 8.4 mg/dl (8.6-10.3); Creatinine Clr Calc Pharmacy 87.3 ml/min; Est GFR (African American) 104.5 ml/min; Est GFR (Non-African American) 90.1 ml/min; Phosphorus 3.1 mg/dl (2.5-4.9)
[2022-11-03] MEDS: CHOLECALCIFEROL 5,000 UNITS 125 MCG TAB PO SCH (08:39)
[2022-11-03] MEDS: DOXYCYCLINE HYCLATE 100 MG CAP PO SCH ×2 (08:39→20:12)
[2022-11-03] MEDS: CEROVITE ADV FORMULA TAB PO SCH (08:39)
[2022-11-03] MEDS: guaiFENesin 600 MG TABCR PO SCH ×2 (08:39→20:12)
[2022-11-03] MEDS: ENOXAPARIN INJ 40 MG/0.4 ML SYR SQ SCH (08:40)
[2022-11-03] MEDS: FAMOTIDINE 20 MG TAB PO PRN (08:40)
[2022-11-03] MEDS: SODIUM CHLORIDE 0.9% 1000ML 1,000 ML IV SCH (09:59)
[2022-11-03] MEDS: predniSONE 20 MG TAB PO SCH (12:29)
--- NOTE | 2022-11-03 16:11 | Hospitalist Progress Note ---
Date of Service November 03, 2022 Assessment & Plan (1) Severe sepsis: Plan: SIRS plus lactic acidosis Atypical pneumonia/pulmonary vascular congestion Has been on IV ceftriaxone and doxycycline for possible pneumonia with atypical coverage Patient has been feeling better but complains to have headache and arthralgias Lyme and viral titers have been negative We will get CT of the chest to evaluate pneumonia further We will continue current management Arthralgias Likely secondary to infection of uncertain etiology Will try small doses of prednisone for short course Does not have any acute arthritis Troponin elevation secondary to illness Serial troponin were not elevated Doubt any ACS Hyperlipidemia on statin Rx GERD, stable on regimen Anxiety/mood disorder, stable Prediabetes, hemoglobin A1c of 5.08 May 2022 Posttraumatic right shoulder pain DVT prophylaxis. Lovenox subcu Full code (2) Pneumonia: (3) Depression with anxiety: (4) Hyperlipidemia: Admission and Anticipated Discharge Date Admission Date: November 02, 2022 Subjective 11/03/2022 The patient was seen and examined in medical telemetry unit She has been complaining of headache and also aches in multiple joints especially the small joints of the hands Denies any fever and or chills, still has a cough without any wheezing and no shortness of breath Review of Systems Review of Systems: All systems reviewed and are unremarkable except as noted below Physical Exam Physical Exam: Lying in bed comfortably Constitutional: well developed, well nourished and + obese; not ill appearing Eyes: PERRL, conjunctivae normal, anicteric sclerae ENMT: external ear and nose normal, oropharynx normal Respiratory: no respiratory distress Auscultation: + lungs not clear to auscultation Cardiovascular: Rate/Rhythm: regular rate and regular rhythm; not tachycardic Heart Sounds: normal S1 and normal S2; no murmur Extremities: no edema Gastrointestinal (Abdomen): Inspection/Auscultation: normal bowel sounds; abdomen not distended Percussion/Palpation: abdomen soft; abdomen nontender Musculoskeletal: Has arthralgias involving small joints generalized. No acute arthritis in volving any joint Skin: No rash Neurologic: normal touch/pain/proprioception and moves all extremities; no focal motor deficits Psychiatric: A+Ox3, euthymic affect Lymphatic: no cervical or axillary lymphadenopathy Results & Data Results & Data Vital Signs (Past 12 Hours) Vital Signs Temp Pulse Pulse Pulse Resp BP Pulse Ox 11/03/22 15:36 36.9 C 84 18 131/81 92 11/03/22 11:37 37.0 C 82 14 102/64 94 11/03/22 08:24 37.0 C 83 18 124/75 95 11/03/22 07:50 79 11/03/22 07:40 O2 Del Method 11/03/22 15:36 Room Air 11/03/22 11:37 Room Air 11/03/22 08:24 Room Air 11/03/22 07:50 11/03/22 07:40 Room Air Laboratory Results Short CBC 11/03/22 Range/Units 07:01 WBC 9.95 (4.8-10.8) K/ul Hgb 9.4 L D (12.0-16.0) g/dl Hct 28.7 L (37.0-47.0) % Plt Count 289 (130-400) K/uL BMP 11/03/22 07:01 Sodium 139 Potassium 4.0 Chloride 109 H Carbon Dioxide 26 BUN 10 Creatinine 0.66 Glucose 104 H Calcium 8.4 L Medications Administered Current Inpatient Medications Acetaminophen (Acetaminophen 325 Mg Tab) 650 mg PO Q4H PRN PRN Reason: Pain or Fever Stop: 12/02/22 06:42 Last Admin: 11/03/22 12:20 Dose: 650 mg Atorvastatin Calcium (Atorvastatin 20 Mg Tab) 20 mg PO HS SHI Stop: 12/02/22 20:59 Last Admin: 11/02/22 21:18 Dose: 20 mg Benzonatate (Benzonatate 100 Mg Capsule) 100 mg PO TID PRN PRN Reason: Cough Stop: 12/02/22 05:52 Citalopram Hydrobromide (Citalopram 20 Mg Tab) 20 mg PO HS SHI Stop: 12/02/22 20:59 Last Admin: 11/02/22 21:18 Dose: 20 mg Doxycycline Hyclate (Doxycycline Hyclate 100 Mg Cap) 100 mg PO BID SHI Stop: 11/09/22 08:59 Last Admin: 11/03/22 08:39 Dose: 100 mg Enoxaparin Sodium (Enoxaparin Inj 40 Mg/0.4 Ml Syr) 40 mg SQ QAM SHI Stop: 12/02/22 08:59 Last Admin: 11/03/22 08:40 Dose: 40 mg Famotidine (Famotidine 20 Mg Tab) 20 mg PO BID PRN PRN Reason: heartburn Stop: 12/02/22 08:49 Last Admin: 11/03/22 08:40 Dose: 20 mg Guaifenesin (Guaifenesin 600 Mg Tabcr) 600 mg PO Q12 SHI Stop: 12/02/22 05:54 Last Admin: 11/03/22 08:39 Dose: 600 mg Promethazine HCl 12.5 mg/ (Sodium Chloride) 50.5 mls @ 202 mls/hr IV Q6H PRN PRN Reason: Nausea And Vomiting Stop: 12/02/22 05:52 Ceftriaxone Sodium 2,000 mg/ (Dextrose) 70 mls @ 100 mls/hr IV Q24H SHI; Prot ocol Stop: 11/10/22 07:59 Last Infusion: 11/03/22 09:32 Dose: Infused Sodium Chloride (Nss 1000ml) 1,000 mls @ 60 mls/hr IV .[id number] [facility] Stop: 11/04/22 00:04 Last Admin: 11/03/22 09:59 Dose: 60 mls/hr Ketorolac Tromethamine (Ketorolac Tromethamine 15 Mg/Ml Vial) 15 mg IV Q6H PRN PRN Reason: Pain Stop: 11/07/22 05:52 Last Admin: 11/02/22 07:25 Dose: 15 mg Multivitamins/Minerals (Cerovite Adv Formula Tab) 1 tab PO DAILY [facility] Stop: 12/02/22 08:59 Last Admin: 11/03/22 08:39 Dose: 1 tab Oxycodone HCl (Oxycodone Hcl Ir 5 Mg Tab (Immediate Release)) 5 - 10 mg PO QID PRN PRN Reason: Pain Stop: 11/16/22 05:52 Last Admin: 11/02/22 19:41 Dose: 5 mg Prednisone (Prednisone 20 Mg Tab) 40 mg PO DAILY [facility] Stop: 12/03/22 11:14 Last Admin: 11/03/22 12:29 Dose: 40 mg Vitamin D (Cholecalciferol 5,000 Units 125 Mcg Tab) 5,000 units PO QAM [facility] Stop: 12/02/22 14:44 Last Admin: 11/03/22 08:39 Dose: 5,000 units (4) Hyperlipidemia Hyperlipidemia type: unspecified Qualified Code(s): E78.5 - Hyperlipidemia, unspecified
--- NOTE | 2022-11-03 16:17 | CT Scan Report ---
CT chest diagnostic wo con CLINICAL HISTORY: Pneumonia TECHNIQUE: Multidetector row helical CT of the chest was performed. Coronal and sagittal reformations were obtained. Automated dose lowering techniques and/or adjustment according to patient size were u tilized for this exam. CT DOSE: 675.72 mGy.cm Comparison: Comparison is made to chest radiograph 11/02/2022 FINDINGS: Lungs and pleura: Trace bilateral pleural effusions with underlying atelectasis is seen. Minimal smoo th interlobular septal thickening is seen. Heart and pericardium: There is cardiomegaly without evidence of pericardial effusion. Vessels: Moderate atherosclerotic changes in the aorta and coronary arteries. Mediastinum and boo: Subcentimeter lymph nodes are seen. A few calcified nodes are seen. Chest wall and lower neck: Unremarkable. Abdomen: Unremarkable. Bones: Degenerative changes in the thoracic spine. IMPRESSION: Bilateral pleural effusions with underlying atelectasis. Minimal interlobular septal thickening may p ossibly represent mild pulmonary edema. Nonspecific subcentimeter lymph nodes. ACT 112: Negative or not required by law. Electronically signed by: Rene Davenport M.D. 11/03/2022 4:16 PM
[2022-11-03] MEDS: ATORVASTATIN 20 MG TAB PO SCH (20:12)
[2022-11-03] MEDS: CITALOPRAM 20 MG TAB PO SCH (20:12)
[2022-11-04] MEDS: cefTRIAXone SODIUM 2,000 MG in DEXTROSE 5% 50 ML IV SCH (07:51)
[2022-11-04] MEDS: CHOLECALCIFEROL 5,000 UNITS 125 MCG TAB PO SCH (08:04)
[2022-11-04] MEDS: predniSONE 20 MG TAB PO SCH (08:04)
[2022-11-04] MEDS: CEROVITE ADV FORMULA TAB PO SCH (08:04)
[2022-11-04] MEDS: DOXYCYCLINE HYCLATE 100 MG CAP PO SCH ×2 (08:04→20:16)
[2022-11-04] MEDS: FAMOTIDINE 20 MG TAB PO PRN (08:05)
[2022-11-04] MEDS: guaiFENesin 600 MG TABCR PO SCH ×2 (08:05→20:15)
[2022-11-04] MEDS: ENOXAPARIN INJ 40 MG/0.4 ML SYR SQ SCH (08:05)
[2022-11-04] MEDS ORDERED: POLYETHYLENE (MIRALAX) 17 GM PACK PO PRN (08:09)
[2022-11-04 08:47] LABS: Basophils # (auto) 0.02 K/uL (0-0.2); Basophils % (auto) 0.2 %; Eosinophils # (auto) 0.17 K/uL (0-0.50); Eosinophils % (auto) 1.6 %; Hemoglobin 9.9 g/dl (12.0-16.0); Immature Granulocytes # (auto) 0.08 K/uL (0.01-0.20); Immature Granulocytes % (auto) 0.8 %; Lymphocytes # (auto) 1.26 K/uL (1.2-3.4); Mean Corpuscular Hemoglobin 30.5 pg (25.0-34.0); Mean Corpuscular Hgb Conc 34.1 g/dL (32.0-36.0); Mean Corpuscular Volume 89.2 fL (80.0-100.0); Mean Platelet Volume 9.3 fL (9.4-12.4); Monocytes # (auto) 0.65 K/uL (0.11-0.59); Monocytes % (auto) 6.2 %; Neutrophils % (auto) 79.2 %; Platelet Count 362 K/uL (130-400); RDW Coefficient of Variation 13.2 % (11.5-14.5); RDW Standard Deviation 43.1 fL (36.4-46.3); Red Blood Count 3.25 M/uL (4.20-5.40); White Blood Count 10.48 K/ul (4.8-10.8)
[2022-11-04 08:53] LABS: BUN Creatinine Ratio 21.1 (10-20); Calcium 8.9 mg/dl (8.6-10.3); Creatinine Clr Calc Pharmacy 101.1 ml/min; Est GFR (African American) 109.6 ml/min; Est GFR (Non-African American) 94.6 ml/min; Potassium 3.6 mmol/L (3.5-5.1)
[2022-11-04] MEDS ORDERED: POTASSIUM CHLORIDE CRTAB 20 MEQ TABCR PO STA (11:39)
[2022-11-04] MEDS ORDERED: FUROSEMIDE INJ 20 MG/2 ML VIAL IV ONE (11:39)
--- NOTE | 2022-11-04 15:18 | Hospitalist Progress Note ---
Date of Service November 04, 2022 Assessment & Plan (1) Severe sepsis: Plan: SIRS plus lactic acidosis Atypical pneumonia/pulmonary vascular congestion Has been on IV ceftriaxone and doxycycline for possible pneumonia with atypical coverage Patient has been feeling better but complains to have headache and arthralgias Lyme and viral titers have been negative We will get CT of the chest to evaluate pneumonia further We will continue current management CT scan did not show any pneumonia but did show possible bibasilar atelectasis and minimal effusion Will give a small dose of Lasix and potassium supplement We will continue with oral doxycycline and ceftriaxone will be discontinued Arthralgias Likely secondary to infection of uncertain etiology Will try small doses of prednisone for short course Does not have any acute arthritis Arthralgia and stiffness have been improving Troponin elevation secondary to illness Serial troponin were not elevated Doubt any ACS Hyperlipidemia on statin Rx GERD, stable on regimen Anxiety/mood disorder, stable Prediabetes, hemoglobin A1c of 5.08 May 2022 Posttraumatic right shoulder pain DVT prophylaxis. Lovenox subcu Full code (2) Pneumonia: (3) Depression with anxiety: (4) Hyperlipidemia: Admission and Anticipated Discharge Date Admission Date: November 02, 2022 Subjective 11/03/2022 The patient was seen and examined in medical telemetry unit She has been complaining of headache and also aches in multiple joints especially the small joints of the hands Denies any fever and or chills, still has a cough without any wheezing and no shortness of breath 11/04/2022 The patient was seen and examined in medical telemetry unit She has been feeling much better but is still has dry cough and the joint stiffness is minimally improved She is not yet ready to be discharged Review of Systems Review of Systems: All systems reviewed and are unremarkable except as noted below Physical Exam Physical Exam: Lying in bed comfortably Constitutional: well developed, well nourished and + obese; not ill appearing Eyes: PERRL, conjunctivae normal, anicteric sclerae ENMT: external ear and nose normal, oropharynx normal Respiratory: no respiratory distress Auscultation: + lungs not clear to auscultation Cardiovascular: Rate/Rhythm: regular rate and regular rhythm; not tachycardic Heart Sounds: normal S1 and normal S2; no murmur Extremities: no edema Gastrointestinal (Abdomen): Inspection/Auscultation: normal bowel sounds; abdomen not distended Percussion/Palpation: abdomen soft; abdomen nontender Musculoskeletal: No acute arthritis in any of the joint Neurologic: normal touch/pain/proprioception and moves all extremities; no focal motor deficits Psychiatric: A+Ox3, euthymic affect Lymphatic: no cervical or axillary lymphadenopathy Results & Data Results & Data Vital Signs (Past 12 Hours) Vital Signs Temp Pulse Pulse Resp BP Pulse Ox O2 Del Method 11/04/22 11:23 37.0 C 81 18 134/79 94 Room Air 11/04/22 07:45 36.3 C L 72 18 140/74 94 Room Air 11/04/22 07:41 69 Laboratory Results Short CBC 11/04/22 Range/Units 07:49 WBC 10.48 (4.8-10.8) K/ul Hgb 9.9 L (12.0-16.0) g/dl Hct 29.0 L (37.0-47.0) % Plt Count 362 (130-400) K/uL BMP 11/04/22 07:49 Sodium 140 Potassium 3.6 Chloride 108 H Carbon Dioxide 26 BUN 12 Creatinine 0.57 L Glucose 96 Calcium 8.9 Medications Administered Current Inpatient Medications Acetaminophen (Acetaminophen 325 Mg Tab) 650 mg PO Q4H PRN PRN Reason: Pain or Fever Stop: 12/02/22 06:42 Last Admin: 11/03/22 12:20 Dose: 650 mg Atorvastatin Calcium (Atorvastatin 20 Mg Tab) 20 mg PO HS SHI Stop: 12/02/22 20:59 Last Admin: 11/03/22 20:12 Dose: 20 mg Benzonatate (Benzonatate 100 Mg Capsule) 100 mg PO TID PRN PRN Reason: Cough Stop: 12/02/22 05:52 Citalopram Hydrobromide (Citalopram 20 Mg Tab) 20 mg PO HS SHI Stop: 12/02/22 20:59 Last Admin: 11/03/22 20:12 Dose: 20 mg Doxycycline Hyclate (Doxycycline Hyclate 100 Mg Cap) 100 mg PO BID SHI Stop: 11/09/22 08:59 Last Admin: 11/04/22 08:04 Dose: 100 mg Enoxaparin Sodium (Enoxaparin Inj 40 Mg/0.4 Ml Syr) 40 mg SQ QAM SHI Stop: 12/02/22 08:59 Last Admin: 11/04/22 08:05 Dose: 40 mg Famotidine (Famotidine 20 Mg Tab) 20 mg PO BID PRN PRN Reason: heartburn Stop: 12/02/22 08:49 Last Admin: 11/04/22 08:05 Dose: 20 mg Guaifenesin (Guaifenesin 600 Mg Tabcr) 600 mg PO Q12 [facility] Stop: 12/02/22 05:54 Last Admin: 11/04/22 08:05 Dose: 600 mg Promethazine HCl 12.5 mg/ (Sodium Chloride) 50.5 mls @ 202 mls/hr IV Q6H PRN PRN Reason: Nausea And Vomiting Stop: 12/02/22 05:52 Ketorolac Tromethamine (Ketorolac Tromethamine 15 Mg/Ml Vial) 15 mg IV Q6H PRN PRN Reason: Pain Stop: 11/07/22 05:52 Last Admin: 11/02/22 07:25 Dose: 15 mg Multivitamins/Minerals (Cerovite Adv Formula Tab) 1 tab PO DAILY SHI Stop: 12/02/22 08:59 Last Admin: 11/04/22 08:04 Dose: 1 tab Oxycodone HCl (Oxycodone Hcl Ir 5 Mg Tab (Immediate Release)) 5 - 10 mg PO QID PRN PRN Reason: Pain Stop: 11/16/22 05:52 Last Admin: 11/02/22 19:41 Dose: 5 mg Polyethylene Glycol (Polyethylene (Miralax) 17 Gm Pack) 17 gm PO DAILY PRN PRN Reason: Constipation Stop: 12/04/22 08:08 Last Admin: 11/04/22 08:27 Dose: 17 gm Prednisone (Prednisone 20 Mg Tab) 40 mg PO DAILY [facility] Stop: 12/03/22 11:14 Last Admin: 11/04/22 08:04 Dose: 40 mg Vitamin D (Cholecalciferol 5,000 Units 125 Mcg Tab) 5,000 units PO QAM [facility] Stop: 12/02/22 14:44 Last Admin: 11/04/22 08:04 Dose: 5,000 units (4) Hyperlipidemia Hyperlipidemia type: unspecified Qualified Code(s): E78.5 - Hyperlipidemia, unspecified
[2022-11-04] MEDS ORDERED: COUGH DROP (SUGAR FREE) LOZ 24 LOZ/1 BOX BUCCAL PRN (18:38)
[2022-11-04] MEDS: CITALOPRAM 20 MG TAB PO SCH (20:15)
[2022-11-04] MEDS: ACETAMINOPHEN 325 MG TAB PO PRN (20:15)
[2022-11-04] MEDS: ATORVASTATIN 20 MG TAB PO SCH (20:16)
--- NOTE | 2022-11-04 22:05 | Electrocardiogram Report ---
Test Reason : Blood Pressure : / mmHG Vent. Rate : 107 BPM Atrial Rate : 107 BPM P-R Int : 168 ms QRS Dur : 074 ms QT Int : 348 ms P-R-T Axes : 054 052 075 degrees QTc Int : 464 ms Sinus tachycardia Septal infarct (cited on or before 02-NOV-2022) Abnormal ECG When compared with ECG of 13-APR-2022 18:30, QT has lengthened Confirmed by Goyo Lama ([id number]) on 11/04/2022 10:05:26 PM Referred By: REFERRED SELF Confirmed By:Goyo Lama
[2022-11-05 08:25] LABS: BUN Creatinine Ratio 24.2 (10-20); Creatinine Clr Calc Pharmacy 93.4 ml/min; Est GFR (African American) 106.6 ml/min; Potassium 3.7 mmol/L (3.5-5.1)
[2022-11-05] MEDS: DOXYCYCLINE HYCLATE 100 MG CAP PO SCH (09:06)
[2022-11-05] MEDS: CHOLECALCIFEROL 5,000 UNITS 125 MCG TAB PO SCH (09:06)
[2022-11-05] MEDS: predniSONE 20 MG TAB PO SCH (09:06)
[2022-11-05] MEDS: guaiFENesin 600 MG TABCR PO SCH (09:06)
[2022-11-05] MEDS: ENOXAPARIN INJ 40 MG/0.4 ML SYR SQ SCH (09:07)
[2022-11-05] MEDS: CEROVITE ADV FORMULA TAB PO SCH (09:07)
[2022-11-05] MEDS: ACETAMINOPHEN 325 MG TAB PO PRN (09:09)
--- NOTE | 2022-11-05 11:26 | Hospitalist Progress Note ---
Date of Service November 05, 2022 Assessment & Plan (1) Severe sepsis: Plan: SIRS plus lactic acidosis Atypical pneumonia/pulmonary vascular congestion Has been on IV ceftriaxone and doxycycline for possible pneumonia with atypical coverage Patient has been feeling better but complains to have headache and arthralgias Lyme and viral titers have been negative We will get CT of the chest to evaluate pneumonia further We will continue current management CT scan did not show any pneumonia but did show possible bibasilar atelectasis and minimal effusion Will give a small dose of Lasix and potassium supplement We will continue with oral doxycycline and ceftriaxone will be discontinued We will continue doxycycline for a total of 7 days on discharge Arthralgias Likely secondary to infection of uncertain etiology Will try small doses of prednisone for short course Does not have any acute arthritis Arthralgia and stiffness have been improving We will have a very short course of a steroid Troponin elevation secondary to illness Serial troponin were not elevated Doubt any ACS Hyperlipidemia on statin Rx GERD, stable on regimen Anxiety/mood disorder, stable Prediabetes, hemoglobin A1c of 5.08 May 2022 Posttraumatic right shoulder pain DVT prophylaxis. Lovenox subcu Full code She will be discharged home this afternoon (2) Pneumonia: (3) Depression with anxiety: (4) Hyperlipidemia: Admission and Anticipated Discharge Date Admission Date: November 02, 2022 Subjective 11/03/2022 The patient was seen and examined in medical telemetry unit She has been complaining of headache and also aches in multiple joints especially the small joints of the hands Denies any fever and or chills, still has a cough without any wheezing and no shortness of breath 11/04/2022 The patient was seen and examined in medical telemetry unit She has been feeling much better but is still has dry cough and the joint stiffness is minimally improved She is not yet ready to be discharged 11/05/2022 The patient was seen and examined in medical telemetry unit She has been much better and has some neck pain and headache without any stiff ness Denies any fever and or chills and the arthralgia has been improving Review of Systems Review of Systems: All systems reviewed and are unremarkable except as noted below Physical Exam Physical Exam: Lying in bed comfortably Constitutional: well developed, well nourished and + obese; not ill appearing Eyes: PERRL, conjunctivae normal, anicteric sclerae ENMT: external ear and nose normal, oropharynx normal Respiratory: no respiratory distress Auscultation: + lungs not clear to auscultation Cardiovascular: Rate/Rhythm: regular rate and regular rhythm; not tachycardic Heart Sounds: normal S1 and normal S2; no murmur Extremities: no edema Gastrointestinal (Abdomen): Inspection/Auscultation: normal bowel sounds; abdomen not distended Percussion/Palpation: abdomen soft; abdomen nontender Musculoskeletal: No acute arthritis involving any of the joint. No neck pain and or stiffness Neurologic: normal touch/pain/proprioception and moves all extremities; no focal motor deficits Psychiatric: A+Ox3, euthymic affect Lymphatic: no cervical or axillary lymphadenopathy Results & Data Results & Data Vital Signs (Past 12 Hours) Vital Signs Temp Pulse Pulse Resp BP Pulse Ox O2 Del Method 11/05/22 08:00 Room Air 11/05/22 07:31 36.5 C 69 18 139/80 92 Room Air 11/05/22 07:16 65 11/05/22 03:00 36.8 C 62 14 117/71 93 Room Air 11/05/22 00:55 78 Laboratory Results [facility] 11/05/22 07:33 Sodium 140 Potassium 3.7 Chloride 104 Carbon Dioxide 29 BUN 15 Creatinine 0.62 Glucose 92 Calcium 9.0 Medications Administered Current Inpatient Medications Acetaminophen (Acetaminophen 325 Mg Tab) 650 mg PO Q4H PRN PRN Reason: Pain or Fever Stop: 12/02/22 06:42 Last Admin: 11/05/22 09:09 Dose: 650 mg Atorvastatin Calcium (Atorvastatin 20 Mg Tab) 20 mg PO HS SHI Stop: 12/02/22 20:59 Last Admin: 11/04/22 20:16 Dose: 20 mg Benzonatate (Benzonatate 100 Mg Capsule) 100 mg PO TID PRN PRN Reason: Cough Stop: 12/02/22 05:52 Citalopram Hydrobromide (Citalopram 20 Mg Tab) 20 mg PO HS SHI Stop: 12/02/22 20:59 Last Admin: 11/04/22 20:15 Dose: 20 mg Doxycycline Hyclate (Doxycycline Hyclate 100 Mg Cap) 100 mg PO BID SHI Stop: 11/09/22 08:59 Last Admin: 11/05/22 09:06 Dose: 100 mg Enoxaparin Sodium (Enoxaparin Inj 40 Mg/0.4 Ml Syr) 40 mg SQ QAM [facility]I Stop: 12/02/22 08:59 Last Admin: 11/05/22 09:07 Dose: 40 mg Famotidine (Famotidine 20 Mg Tab) 20 mg PO BID PRN PRN Reason: heartburn Stop: 12/02/22 08:49 Last Admin: 11/04/22 08:05 Dose: 20 mg Guaifenesin (Guaifenesin 600 Mg Tabcr) 600 mg PO Q12 [facility]I Stop: 12/02/22 05:54 Last Admin: 11/05/22 09:06 Dose: 600 mg Promethazine HCl 12.5 mg/ (Sodium Chloride) 50.5 mls @ 202 mls/hr IV Q6H PRN PRN Reason: Nausea And Vomiting Stop: 12/02/22 05:52 Ketorolac Tromethamine (Ketorolac Tromethamine 15 Mg/Ml Vial) 15 mg IV Q6H PRN PRN Reason: Pain Stop: 11/07/22 05:52 Last Admin: 11/02/22 07:25 Dose: 15 mg Menthol (Cough Drop (Sugar Free) Kristi 24 Kristi/1 Box) 1 kristi BUCCAL Q2HWA PRN PRN Reason: Sore Throat Stop: 12/04/22 18:37 Last Admin: 11/04/22 20:15 Dose: 1 kristi Multivitamins/Minerals (Cerovite Adv Formula Tab) 1 tab PO DAILY [facility] Stop: 12/02/22 08:59 Last Admin: 11/05/22 09:07 Dose: 1 tab Oxycodone HCl (Oxycodone Hcl Ir 5 Mg Tab (Immediate Release)) 5 - 10 mg PO QID PRN PRN Reason: Pain Stop: 11/16/22 05:52 Last Admin: 11/02/22 19:41 Dose: 5 mg Polyethylene Glycol (Polyethylene (Miralax) 17 Gm Pack) 17 gm PO DAILY PRN PRN Reason: Constipation Stop: 12/04/22 08:08 Last Admin: 11/04/22 08:27 Dose: 17 gm Prednisone (Prednisone 20 Mg Tab) 40 mg PO DAILY [facility] Stop: 12/03/22 11:14 Last Admin: 11/05/22 09:06 Dose: 40 mg Vitamin D (Cholecalciferol 5,000 Units 125 Mcg Tab) 5,000 units PO QAM [facility] Stop: 12/02/22 14:44 Last Admin: 11/05/22 09:06 Dose: 5,000 units (4) Hyperlipidemia Hyperlipidemia type: unspecified Qualified Code(s): E78.5 - Hyperlipidemia, unspecified
--- NOTE | 2022-11-05 16:44 | Discharge Summary ---
Date of Service November 05, 2022 Admission HPI Per Admitting Provider History obtained from patient, family, and records. Medical history significant for hyperlipidemia, GERD, chronic back pain, anxiety/mood disorder. Last confinement April 2022 for pancreatitis. Patient was on vacation at [place], [place] about 2 weeks ago. Fell from tub resulting in head trauma without LOC. Tolerable headache and neck pain symptoms. Tolerable right shoulder pain. Patient started getting sick a week ago on the way home to [place]. Dry cough without chest pain. Some shortness of breath. Denies aspiration. Poor appetite. Not sure about sick contacts. Patient seen at PCPs office last week. Outpatient Lyme screen and anaplasmosis tests were negative. Plain x-rays of the wrists were negative for fractures Patient brought to ER for worsening symptoms. Ceftriaxone administered at the ER for sepsis. Medical History as above Surgical History : Dental surgery, tonsillectomy/adenoidectomy, hip replacement, cholecystectomy, oviduct fulguration, intranasal lesion removal Family History : Heart disease Personal/Social history : Non-smoker, occasional intake, retired hairdresser Admission Exam Per Admitting Provider Physical Exam: GENERAL: Comfortable, pleasant, obese, incessant dry cough symptoms no respiratory distress SKIN: Normal color, warm HEENT: Keyes palpebral conjunctivae, no ptosis, dry buccal mucosa NECK : Some limitation in motion with minimal no tenderness CHEST : Decreased breath sounds, no tenderness HEART : Tachycardic, no obvious murmurs ABDOMEN: Some distention, nontender EXTREMITIES : No LE swelling/tenderness, right shoulder tenderness, no other conspicuous deformities noted NEUROLOGIC : Coherent, no facial asymmetry, no other gross focality Principal Diagnosis sepsis-no source of infection,Acute Bronchitis Discharge Exam Lying in bed comfortably Constitutional well developed, well nourished and + obese; not ill appearing Eyes PERRL, conjunctivae normal, anicteric sclerae ENMT external ear and nose normal, oropharynx normal Respiratory no respiratory distress Auscultation: + lungs not clear to auscultation Cardiovascular Rate/Rhythm: regular rate and regular rhythm; not tachycardic Heart Sounds: normal S1 and normal S2; no murmur Extremities: no edema Gastrointestinal (Abdomen) Inspection/Auscultation: normal bowel sounds; abdomen not distended Percussion/Palpation: abdomen soft; abdomen nontender Neurologic normal touch/pain/proprioception and moves all extremities; no focal motor deficits Psychiatric A+Ox3, euthymic affect Lymphatic no cervical or axillary lymphadenopathy Discharge Data Allergies Allergy/AdvReac Type Severity Reaction Status Date / Time No Known Allergies Allergy Mild Verified 04/14/22 09:34 Consultations 11/02/22 04:38 ED Decision to Admit Stat Ordered Studies 11/02/22 03:19 CT cervical spine wo con Stat CT head/brain wo con Stat 11/03/22 11:15 CT chest diagnostic wo con Routine Hospital Course (1) Severe sepsis: SIRS plus lactic acidosis Atypical pneumonia/pulmonary vascular congestion Has been on IV ceftriaxone and doxycycline for possible pneumonia with atypical coverage Patient has been feeling better but complains to have headache and arthralgias Lyme and viral titers have been negative We will get CT of the chest to evaluate pneumonia further We will continue current management CT scan did not show any pneumonia but did show possible bibasilar atelectasis and minimal effusion Will give a small dose of Lasix and potassium supplement We will continue with oral doxycycline and ceftriaxone will be discontinued We will continue doxycycline for a total of 7 days on discharge Arthralgias Likely secondary to infection of uncertain etiology Will try small doses of prednisone for short course Does not have any acute arthritis Arthralgia and stiffness have been improving We will have a very short course of a steroid Troponin elevation secondary to illness Serial troponin were not elevated Doubt any ACS Hyperlipidemia on statin Rx GERD, stable on regimen Anxiety/mood disorder, stable Prediabetes, hemoglobin A1c of 5.08 May 2022 Posttraumatic right shoulder pain DVT prophylaxis. Lovenox subcu Full code She will be discharged home this afternoon (2) Pneumonia: (3) Depression with anxiety: (4) Hyperlipidemia: Total Time Total Time Spent Total Time Spent (In Minutes): 35 minutes Discharge Plan Discharge Items Patient Disposition: Home - Self-Care Reason For Visit: SEPSIS Discharge Diagnosis: sepsis-no source of infection,Acute Bronchitis Condition on Discharge: Good Activity: Resume your previous activity Non-emergency contact: Primary Care Provider Call non-emergency contact if: you have any medication questions and your symptoms worsen Follow-up/Referrals: Jared Collado DO [Primary Care Provider] - (Date & Time 11/09/2022 11:00 AM Provider YUDITH Odonnell Department [facility] ) Diet: Regular Addtl Attending Provider Instructions: Please take precautions to avoid falls Finish the course of antibiotic and steroid Keep appointment with your healthcare providers Pending Studies at Discharge: No Stand-Alone Forms: My [facility], Smoking Cessation Medications and DC Order Prescriptions: New doxycycline hyclate 100 mg Capsule 100 mg PO BID 4 Days Qty: 8 0RF benzonatate 100 mg Capsule 100 mg PO TID PRN (Reason: cough) 10 Days Qty: 30 0RF prednisone 10 mg tablet 10 mg PO UD Qty: 12 0RF Rx Instructions: 3 p.o. daily for 2 days, 2 p.o. daily for 2 days and then 1 p.o. daily for 2 days Continued atorvastatin 20 mg tablet 20 mg PO HS Qty: 90 1RF citalopram 20 mg tablet 20 mg PO HS Co Q-10 60 mg PO DAILY Multivitamin And Mineral 1 tab PO DAILY Vitamin D3 10 mcg PO DAILY famotidine 20 mg PO BID PRN (Reason: heartburn) Discharge Orders: Discharge Order (Routine); Ordered 11/05/22 Ordered By: Cammy Stout Admission Data Admit Date/Time: 11/02/22 05:52 Attending Provider: Cammy Stout Admit Provider: Thang Lopez Primary Care Provider: Jared Collado Other Providers: Thang Lopez ; Wil Smith Other Interventions: Discharge Summary Assessment (RN) Last Done: 11/05/22 12:08
== END 2022-11-05 13:04 | disposition home or self-care (01) | DRG 871 ==
LOC: ED 02:49 → 2E 05:52 → SUATTDRO 05:52 → 2E 06:19 → 2N 18:35